=== PATIENT | female | born 1960 | race Caucasian/White ===

== ENCOUNTER 2020-09-12 17:16 | Inpatient (IN) | payer BC, SELFPAY ==
[2020-09-12 17:17] VITALS: BP 133/88; PULSE 106; RESP 16; TEMP 36.7; O2SAT 98; BMI 32.1
[2020-09-12 17:20] VITALS: BP 133/88; PULSE 106; RESP 16; TEMP 36.7; O2SAT 98
[2020-09-12 17:40] LABS: Absolute Lymphocyte Count 1.36 X10^3/uL (0.83-4.51); Absolute Neutrophil Count 10.6 X10^3/uL (2.0-7.7); Basophil# 0.05 X10^3/uL; Basophil% 0.4 % (0-1); Eosinophil# 0.25 X10^3/uL; Eosinophils% 1.9 % (0-5); Hematocrit 42.2 % (37-47); Hemoglobin 14.3 g/dL (12.0-15.0); Lymphocyte # 1.36 X10^3/ul (0.83-4.51); Lymphocyte % 10.2 % (19-41); Mean Corp Hgb Conc 33.9 g/dL (32-36); Mean Corpuscular Hgb 30.2 pg (27.0-32.0); Mean Platelet Vol. 10.7 fl (6.2-12.0); Monocyte# 0.97 X10^3/uL; Monocyte% 7.3 % (0-10); NRBC Flagged by Analyzer 0 % (0-5); Neutrophil # 10.64 X10^3/uL (2.7-7.7); Neutrophil % 79.6 % (47-70); Platelet Count 327 K/mm3 (150-450); RBC Distribution Width CV 12.2 % (11.6-14.6); RBC Distribution Width SD 40.3 fl (35.1-43.9); Red Blood Count 4.74 M/mm3 (4.2-5.4); White Blood Count 13.4 K/mm3 (4.4-11.0)
[2020-09-12 17:58] LABS: ALB/GLOB Ratio 0.7 RATIO (0.9-2.4); AST(SGOT) 23 U/L (15-37); Alanine Aminotransfer ALT/SGPT 30 U/L (13-56); Albumin, Serum 3.1 g/dL (3.2-5.0); Alkaline Phosphatase 97 U/L (45-117); Anion Gap 8 (5-15); BUN 7 mg/dL (7-18); Calcium,Total 8.8 mg/dL (8.5-10.1); Chloride 104 mmol/L (98-107); Creatinine, Serum 0.99 mg/dL (0.55-1.02); EST Glomerular Filtration Rate 61 mL/min (>60); Est Glom Filt Rate - Afr Amer 74 mL/min (>60); Estimated Creatinine Clearance 48.99 ml/min; Globulin 4.4 g/dL (2.2-4.2); Glucose 103 mg/dL (74-106); Protein, Total 7.5 g/dL (6.4-8.2); Sodium Level 139 mmol/L (136-145)
[2020-09-12 18:28] VITALS: BP 132/61; PULSE 100; RESP 16; TEMP 37.3; O2SAT 100
[2020-09-12 19:24] VITALS: BP 148/77; PULSE 99; RESP 18; TEMP 37.7; O2SAT 98
[2020-09-12] MEDS: Ondansetron 4 MG/2 ML Vial IV (19:53)
[2020-09-12] MEDS: Morphine 4 MG/ML Syringe IV ×2 (19:53→22:50)
--- NOTE | 2020-09-12 20:58 | ED.RN ---
pt called rn to room for numbness and tingling in chest starting about [address] torres aware. pt hands rigid. new finding since arrival. dr. torres also aware. respiratory called into room for ekg.
--- NOTE | 2020-09-12 21:03 | EKG12_ITS ---
Test Reason : CHEST DISCOMFORT Blood Pressure : / mmHG Vent. Rate : 103 BPM Atrial Rate : 103 BPM P-R Int : 146 ms QRS Dur : 088 ms QT Int : 356 ms P-R-T Axes : 053 014 044 degrees QTc Int : 466 ms Sinus tachycardia Nonspecific ST abnormality Abnormal ECG Confirmed by ZEINA HAQUE, KRISTEN ([id number]), technical writer and editor TARYN MICHAUD ([id number]) on 09/16/2020 2:01:02 PM Referred By: DANIEL Confirmed By:KRISTEN PASTRANA MD
--- NOTE | 2020-09-12 21:14 | CT_ITS ---
We are attempting to reach an attending provider to discuss findings. An addendum with communication details will be sent when the communication is complete. HISTORY: abdominal paiN TECHNIQUE: Helically acquired images were obtained of the abdomen and pelvis following the intravenous administration of 100 ML of Isovue-370 Iodinated contrast. 2D reformats. Oral contrast was administered. A radiation dose optimization technique was used for this scan. COMPARISON: Comparison CT scan of the abdomen and pelvis was recently as April 12, 2013 FINDINGS: # of images incl. paperwork: 418 LUNG BASES: Clear. CT abdomen: There is a gentle dextroscoliosis within the thoracolumbar spine. Some degenerative disc disease. Some facet arthropathy. Sclerosis at the pubic symphysis. The gallbladder has been resected. There is intra-and extrahepatic biliary ductal dilatation. . Within the periphery, in a subcapsular position, in the posterior segment of the right hepatic lobe there is a hypodense structure with well-defined margins measuring 6 mm in diameter, likely representing a benign cyst. The spleen, pancreas, and adrenal glands, are normal. The kidneys are normal. The aorta is normal. CT pelvis: No ascites is present. The appendix is not identified, and likely has been resected. The uterus is not identified, and likely has been resected. The bladder is contracted. Abnormal edema and swelling is present within the splenic flexure and descending colon. The degree of inflammation is much more severe within the sigmoid colon near its junction with the descending colon, and there is likely focal bowel perforation, series 2 image 77. No abscess. No perceived intraperitoneal free gas. Diverticulosis within the sigmoid colon. Additional inflammatory change in bowel wall thickening within the sigmoid colon. CT/Abdomen/Pelvis W IV Cont ONLY IMPRESSION: Colitis beginning within the splenic flexure and extending through the sigmoid colon. The colitis is most severe and most focal at the junction of the descending colon and the sigmoid colon. On series 2, the axial images, image 77, as well as coronal series 601 image 51 there does appear to be a defect in the enhancing mucosa suggestive of focal possible bowel perforation, at least through the mucosa, but perhaps not through the visceral peritoneal reflection. There is no free corresponding gas or abscess Individualized dose optimization techniques were used for this CT. at 2151 Reported and signed by: Wei Kern MD Electronically Signed: Wei Kern MD at 21:50 EDT Tel , Service support ,
[2020-09-12 21:16] LABS: Lipase 90 U/L (73-393)
[2020-09-12] MEDS: proMETHazine 25 MG/ML Syringe 12.5 MG IM (22:32)
--- NOTE | 2020-09-12 22:37 | CON.PCM.SX_ITS ---
Assessment & Plan Assessment/Plan (1) C. difficile colitis: PLAN: The patient has known C. difficile colitis which was confirmed with stool study last Tuesday. The patient has been on oral vancomycin for a week now. The patient presented today because her pain got worse and she is saying her pain is in the left lower quadrant and epigastric region. CT scan shows inflammation of the colon from the splenic flexure to the sigmoid colon with the worst of the inflammation at the descending sigmoid junction. There is also concern for the integrity of the mucosa of the sigmoid colon. The patient reports having C. difficile 4 years ago as well. At this point I would recommend admission to the hospitalist service on a closely monitored unit. The patient should have every 4 vitals and if she starts becoming hypotensive or having any guarding she may require surgery. At this time the patient is having left lower quadrant tenderness but the rest of her quadrants are only mildly tender. The left lower quadrant has no guarding or rebound tenderness. If the patient remains the same overnight and there is no improvement I would recommend repeating a CT in the morning as there was worsening of the inflammation from yesterday CT to today. I discussed laparotomy with sigmoid colectomy and possible colostomy with the patient and her . I informed the patient that C. difficile colitis may be severe in nature. I explained that surgery would carry a high morbidity mortality rate and likely colostomy. All the patient's questions were answered. At the current time the patient is only mildly tachycardic and has a low-grade fever of 99.9 with no hypotension. If the patient progresses to sepsis with hypotension and more severe tachycardia or develops peritoneal signs I would recommend taking the patient for colectomy. I have also recommended that ID may be consulted for guidance on antibiotic recommendations. Thomas Hassan MD Pager: [facility] [address] [place] [address], [address] [place] [address] Office: HPI Consult Data Date of Consult: 09/12/20 HPI Narrative HPI Narrative: BRETT MCINTYRE, is a 59 F who presents with abdominal pain. The patient has been treated for C. difficile for the past week with oral vancomycin. She reports that she developed lower abdominal pain and epigastric pain last Tuesday and went to see her doctor and a stool study showed C. difficile. The patient was started on oral vancomycin and reports that her pain got worse on Tuesday and went back to the doctor and she was ordered a CT scan. The CT scan was done yesterday and showed colitis. The patient was ordered Flagyl but never picked it up to the pharmacy and got worse today and she now reports she is having worse left lower quadrant pain and she is having epigastric pain. She also reports he is having a lot of diarrhea. No nausea or vomiting. She also says she is having tingling in her arms and legs. [facility] Medical History (Updated 09/12/20 @ 22:[address] Thomas Hassan MD) C. difficile colitis Cholecystectomy planned Diverticulitis Home Medications estradiol 1 patch TOPICAL QODAY 04/12/13 [History Last Taken Unknown] naproxen 500 mg PO BID PRN #20 tab 04/12/13 [Rx Last Taken Unknown] ondansetron 4 mg PO Q8H PRN PRN #10 tab 04/12/13 [Rx Last Taken Unknown] omeprazole 20 mg PO DAILY PRN 10/15/16 [History Last Taken Unknown] Allergy/AdvReac Type Severity Reaction Status Date / Time midazolam [From Versed] Allergy WENT Verified 09/12/20 17:19 COMPLETELY NUMB butorphanol tartrate AdvReac Abd Verified 09/12/20 17:19 [From Stadol] cramps/diarrhea codeine AdvReac Abd Verified 09/12/20 17:19 cramps/diarrhea Surgical History (Updated 09/12/20 @ 18:27 by Zulma Garcia) History of appendectomy History of hysterectomy Social History Smoking Status: Never smoker ROS Constitutional Constitutional: Reports fever(s); Denies anorexia, fatigue or headache(s) Eyes Eyes: Denies blurry vision ENT HEENT: Denies abnormal hearing Cardiovascular Cardiovascular: Denies chest pain Respiratory/Chest Respiratory/Chest: Denies cough or productive cough Gastrointestinal Gastrointestinal: Reports abdominal pain, diarrhea and nausea; Denies bloating, constipation, dysphagia, hematemesis or vomiting Genitourinary Genitourinary: Denies difficulty urinating Musculoskeletal Musculoskeletal: Denies abnormal gait Integumentary Integumentary: Denies jaundice Neurologic Neurologic: Denies abnormal gait Endocrine Endocrinology: Denies flushing Hematologic/Lymphatic Hematologic/Lymphatic: Denies easy bleeding Physical Exam Const alert and oriented x3 Eyes PERRL Neck full ROM Resp normal respiratory effort Cardio Rate: tachycardic Rhythm: regular rhythm GI non-distended Palpation: tender; Negative for guarding Lab / Micro Data Result Diagrams: 09/12/20 17:20 09/12/20 17:20 Labs: Laboratory Results - last 24 hr 09/12/20 09/12/20 09/12/20 17:20 17:20 17:20 WBC 13.4 H RBC 4.74 Hgb 14.3 Hct 42.2 MCV 89.0 MCH 30.2 MCHC 33.9 RDW Std Deviation 40.3 RDW Coeff of Angel 12.2 Plt Count 327 MPV 10.7 Immature Gran % (Auto) 0.600 Neut % (Auto) 79.6 H Lymph % (Auto) 10.2 L [place] % (Auto) 7.3 Eos % (Auto) 1.9 Baso % (Auto) 0.4 Absolute Neuts (auto) 10.6 H Absolute Lymphs (auto) 1.36 Nucleated RBC % 0 Sodium 139 Potassium 3.0 L Chloride 104 Carbon Dioxide 27.0 Anion Gap 8 BUN 7 Creatinine 0.99 Estim Creat Clear Calc 48.99 Est GFR (MDRD) Af Amer 74 Est GFR (MDRD) Non-Af 61 BUN/Creatinine Ratio 7.0 L Glucose 103 Calcium 8.8 Total Bilirubin 0.40 AST 23 ALT 30 Alkaline Phosphatase 97 Troponin I Total Protein 7.5 Albumin 3.1 L Globulin 4.4 H Albumin/Globulin Ratio 0.7 L Lipase 90 09/12/20 17:20 WBC RBC Hgb Hct MCV MCH MCHC RDW Std Deviation RDW Coeff of Angel Plt Count MPV Immature Gran % (Auto) Neut % (Auto) Lymph % (Auto) [place] % (Auto) Eos % (Auto) Baso % (Auto) Absolute Neuts (auto) Absolute Lymphs (auto) Nucleated RBC % Sodium Potassium Chloride Carbon Dioxide Anion Gap BUN Creatinine Estim Creat Clear Calc Est GFR (MDRD) Af Amer Est GFR (MDRD) Non-Af BUN/Creatinine Ratio Glucose Calcium Total Bilirubin AST ALT Alkaline Phosphatase Troponin I < 0.015 Total Protein Albumin Globulin Albumin/Globulin Ratio Lipase Radiology Impression Abdomen/Pelvis CT 09/12/20 21:14 IMPRESSION: Colitis beginning within the splenic flexure and extending through the sigmoid colon. The colitis is most severe and most focal at the junction of the descending colon and the sigmoid colon. On series 2, the axial images, image 77, as well as coronal series 601 image 51 there does appear to be a defect in the enhancing mucosa suggestive of focal possible bowel perforation, at least through the mucosa, but perhaps not through the visceral peritoneal reflection. There is no free corresponding gas or abscess Individualized dose optimization techniques were used for this CT. at 2151 Reported and signed by: Wei Kern MD Electronically Signed: Wei Kern MD at 21:50 EDT Tel , Service support , ADDENDUM: 09/12/202207 IMPRESSION: Colitis beginning within the splenic flexure and extending through the sigmoid colon. The colitis is most severe and most focal at the junction of the descending colon and the sigmoid colon. On series 2, the axial images, image 77, as well as coronal series 601 image 51 there does appear to be a defect in the enhancing mucosa suggestive of focal possible bowel perforation, at least through the mucosa, but perhaps not through the visceral peritoneal reflection. There is no free corresponding gas or abscess Individualized dose optimization techniques were used for this CT. at 2151 Reported and signed by: Wei Kern MD N.B. : The above information has been verbally conveyed by Wei Kern MD to Frank Brantley MD, on 09/12/2020 22:01:26 (ET). Electronically Signed: Wei Kern MD at 21:50 EDT Tel , Service support ,
--- NOTE | 2020-09-12 22:49 | EDS_ITS ---
HPI History of Present Illness Chief Complaint: Abd Pain Narrative Narrative: Patient presenting with abdominal pain. She states he was recently diagnosed with C. difficile colitis. She followed up with her GI doctor who had a CT with IV contrast performed of her abdomen and pelvis which showed diverticulitis. She was then's started on Flagyl. Patient states that today she has had significant increase in pain. She denies fever or chills. She has mild nausea. She denies urinary complaints. PFSH PFSH Medical History C. difficile colitis Cholecystectomy planned Diverticulitis Home Medications estradiol 1 patch TOPICAL QODAY 04/12/13 [History Last Taken Unknown] naproxen 500 mg PO BID PRN #20 tab 04/12/13 [Rx Last Taken Unknown] ondansetron 4 mg PO Q8H PRN PRN #10 tab 04/12/13 [Rx Last Taken Unknown] omeprazole 20 mg PO DAILY PRN 10/15/16 [History Last Taken Unknown] Allergy/AdvReac Type Severity Reaction Status Date / Time midazolam [From Versed] Allergy WENT Verified 09/12/20 17:19 COMPLETELY NUMB butorphanol tartrate AdvReac Abd Verified 09/12/20 17:19 [From Stadol] cramps/diarrhea codeine AdvReac Abd Verified 09/12/20 17:19 cramps/diarrhea Surgical History History of appendectomy History of hysterectomy Social History Smoking Status: Never smoker ROS [facility] ED Constitutional Constitutional ED: Denies chills, fever(s) or sweats Eyes Eyes: Denies blurry vision or change in vision ENT ENT ED: Denies ear pain, rhinorrhea or sore throat Cardiovascular Cardiovascular: Denies chest pain, palpitations or racing heartbeat Respiratory/Chest Respiratory/Chest: Denies cough, dyspnea or sputum Gastrointestinal Gastrointestinal: Reports abdominal pain and nausea; Denies constipation, diarrhea or vomiting Genitourinary Genitourinary ED: Denies dysuria, hematuria or urinary frequency Musculoskeletal Musculoskeletal: Denies arthralgias, myalgias or neck pain Integumentary Denies abscess, Abrasions or rash Neurologic Neurologic: Denies headache(s), paresthesias or weakness Psychiatric Psychiatric: Denies anxiety, depression, suicidal ideation or suicidal thoughts Endocrine Endocrinology: Denies polydipsia or polyuria EXAM Physical Exam Const Vital Signs: 09/12/20 17:17 09/12/20 17:20 09/12/20 18:28 Temperature 98.1 F 98.1 F 99.1 F Temperature Source Temporal Temporal Temporal Pulse Rate 106 H 106 H 100 Respiratory Rate 16 16 16 Blood Pressure 133/88 H 133/88 H 132/61 H Blood Pressure Mean 103 103 84 Pulse Ox 98 98 100 Oxygen Delivery Method Room Air Room Air Room Air 09/12/20 19:24 Temperature 99.9 F H Temperature Source Oral Pulse Rate 99 Respiratory Rate 18 Blood Pressure 148/77 H Blood Pressure Mean 100 Pulse Ox 98 Oxygen Delivery Method Room Air Positive obese General Appearance ED: NAD Nutritional Appearance: obese HEENT Negative for trauma or tenderness Eyes PERRL and EOMs intact bilaterally Resp normal respiratory effort and clear to auscultation bilaterally Cardio regular rate and regular rhythm GI non-distended Palpation: soft and tender LLQ Back/Spine no CVA tenderness Lumbar Spine / Lower Back: Negative for lumbar spinal tenderness Extremity normal to inspection General Extremety ED: Negative for edema or tenderness General Extremity: Negative for edema Neuro oriented x3 Sensorium / Orientation: alert Psych mental status grossly normal Skin no rashes or lesions noted, no wounds and skin turgor normal MDM MDM MDM Narrative Medical decision making narrative: Patient was seen and evaluated on arrival for abdominal pain which appeared to be mostly in the left lower quadrant. Patiently recently treated for C. difficile and diverticulitis. Patient had lab work drawn today which shows a leukocytosis of 13.4 with a slight left shift. Hemoglobin hematocrit stable. Platelets normal. Patient's renal function was normal however potassium was 3.0. LFTs are also normal. Lipase negative. After receiving morphine and Zofran patient felt improved. While I was discussing with her that she could probably go home with pain medication and nausea medication she began to have acute onset epigastric pain and started feeling like it was radiating up into her chest. I obtained an EKG that shows a normal sinus rhythm at 103 bpm with signs of ischemic changes as interpreted by myself. Her troponin was negative. I was more concerned with possible perforation so I obtained a CT of the abdomen pelvis with IV contrast which shows to be a defect in the enhancing mucosa there suggestive of focal possible bowel perforation, at least through the mucosa, but perhaps not through the visceral peritoneal reflection. There is no free corresponding gas or abscess. Patient was discussed with Dr. Hassan who individually examined the patient and felt that she was not peritoneal. He recommended admission. I discussed this with the hospitalist and patient was admitted to PCU stepdown. The plan is to obtain an ID consult for the best antibiotics to use given her current diagnosis. Patient will need her potassium repleted IV while inpatient as she is n.p.o. Impression: 1. C. difficile colitis 2. Intractable abdominal pain Lab Data Labs: Laboratory Results - last 24 hr 09/12/20 09/12/20 09/12/20 17:20 17:20 17:20 WBC 13.4 H RBC 4.74 Hgb 14.3 Hct 42.2 MCV 89.0 MCH 30.2 MCHC 33.9 RDW Std Deviation 40.3 RDW Coeff of Angel 12.2 Plt Count 327 MPV 10.7 Immature Gran % (Auto) 0.600 Neut % (Auto) 79.6 H Lymph % (Auto) 10.2 L [place] % (Auto) 7.3 Eos % (Auto) 1.9 Baso % (Auto) 0.4 Absolute Neuts (auto) 10.6 H Absolute Lymphs (auto) 1.36 Nucleated RBC % 0 Sodium 139 Potassium 3.0 L Chloride 104 Carbon Dioxide 27.0 Anion Gap 8 BUN 7 Creatinine 0.99 Estim Creat Clear Calc 48.99 Est GFR (MDRD) Af Amer 74 Est GFR (MDRD) Non-Af 61 BUN/Creatinine Ratio 7.0 L Glucose 103 Calcium 8.8 Total Bilirubin 0.40 AST 23 ALT 30 Alkaline Phosphatase 97 Troponin I Total Protein 7.5 Albumin 3.1 L Globulin 4.4 H Albumin/Globulin Ratio 0.7 L Lipase 90 09/12/20 17:20 WBC RBC Hgb Hct MCV MCH MCHC RDW Std Deviation RDW Coeff of Angel Plt Count MPV Immature Gran % (Auto) Neut % (Auto) Lymph % (Auto) [place] % (Auto) Eos % (Auto) Baso % (Auto) Absolute Neuts (auto) Absolute Lymphs (auto) Nucleated RBC % Sodium Potassium Chloride Carbon Dioxide Anion Gap BUN Creatinine Estim Creat Clear Calc Est GFR (MDRD) Af Amer Est GFR (MDRD) Non-Af BUN/Creatinine Ratio Glucose Calcium Total Bilirubin AST ALT Alkaline Phosphatase Troponin I < 0.015 Total Protein Albumin Globulin Albumin/Globulin Ratio Lipase Radiography Diagnostic Testing: Radiology Impression Abdomen/Pelvis CT 09/12/20 21:14 IMPRESSION: Colitis beginning within the splenic flexure and extending through the sigmoid colon. The colitis is most severe and most focal at the junction of the descending colon and the sigmoid colon. On series 2, the axial images, image 77, as well as coronal series 601 image 51 there does appear to be a defect in the enhancing mucosa suggestive of focal possible bowel perforation, at least through the mucosa, but perhaps not through the visceral peritoneal reflection. There is no free corresponding gas or abscess Individualized dose optimization techniques were used for this CT. at 2151 Reported and signed by: Wei Kern MD Electronically Signed: Wei Kern MD at 21:50 EDT Tel , Service support , ADDENDUM: 09/12/208 IMPRESSION: Colitis beginning within the splenic flexure and extending through the sigmoid colon. The colitis is most severe and most focal at the junction of the descending colon and the sigmoid colon. On series 2, the axial images, image 77, as well as coronal series 601 image 51 there does appear to be a defect in the enhancing mucosa suggestive of focal possible bowel perforation, at least through the mucosa, but perhaps not through the visceral peritoneal reflection. There is no free corresponding gas or abscess Individualized dose optimization techniques were used for this CT. at 2151 Reported and signed by: Wei Kern MD N.B. : The above information has been verbally conveyed by Wei Kern MD to Frank Brantley MD, on 09/12/2020 22:01:26 (ET). Electronically Signed: Wei Kern MD at 21:50 EDT Tel , Service support , Discharge Plan Triage Chief Complaint: Abd Pain ED Provider: Frank Brantley Dx/Rx/DC Orders Prescriptions: No Action estradiol 0.05 MG patch 1 patch topical QODAY RF: 0 ondansetron 4 MG tablet 4 mg PO Q8H PRN PRN (Reason: Nausea) Qty: 10 RF: 0 naproxen 500 MG tablet 500 mg PO BID PRN Qty: 20 RF: 0 omeprazole 20 MG capsule 20 mg PO DAILY PRN (Reason: Indigestion) RF: 0 Primary Care Provider: Romeo Robbins III
--- NOTE | 2020-09-12 22:59 | PCM.HP.STD ---
[facility] - General General Date of Admission: 09/12/20 Date of Service: 09/12/20 Chief Complaint: Abdominal pain. [facility] Narrative BRETT MCINTYRE, is a 59 F with no significant past medical history presented to the emergency room because of abdominal pain. Her illness started around 10 days ago with abdominal pain, initially was right lower quadrant and epigastric pain, dull aching pain, has been slowly progressing, associated with diarrhea as well as nausea and vomiting and without aggravating or relieving factors. 3 days after onset of her symptoms, she was seen by her PCP who ordered blood work and stool for C. difficile that came back positive. She was started on p.o. vancomycin 5 days ago. She continued to have this abdominal pain but started to shift to the left side of her abdomen, more severe pain, sharp pain, 10 out of 10 in severity, aggravated by movement and even coughing, continue to have persistent diarrhea, at least 10 times a day with watery stool as well as nausea and vomiting. She has been on p.o. vancomycin for the last 5 days but has no improvement of her symptoms. She had a CT scan abdomen that was done yesterday which was ordered by her PCP and she received a call from her PCPs office informing him that she will need to be on 2 antibiotics. Today, she feels more sick, continued to have abdominal pain with diarrhea and she decided to come to the emergency department. In the emergency department, she had a low-grade fever of 99.9 Fahrenheit, was tachycardic, blood pressure was stable, pulse ox was 98% on room air. Routine blood work was remarkable for leukocytosis and hypokalemia, otherwise normal. LFT was unremarkable. Lipase was normal. CT scan abdomen and pelvis with IV contrast revealed extensive acute colitis of the splenic flexure, descending colon and down to sigmoid colon, there was a defect in the enhancing mucosa suggestive of focal possible bowel perforation at least through the mucosa, no free air, no abscess formation. Patient is being admitted for acute severe colitis of the splenic flexure, descending colon and sigmoid colon due to C. difficile infection and also found to have sepsis and hypokalemia. [facility] Medical History (Updated 09/12/20 @ 23:[address] Casimiro Hess MD) C. difficile colitis Diverticulitis Home Medications estradiol 1 patch TOPICAL QODAY 04/12/13 [History Last Taken Unknown] naproxen 500 mg PO BID PRN #20 tab 04/12/13 [Rx Last Taken Unknown] ondansetron 4 mg PO Q8H PRN PRN #10 tab 04/12/13 [Rx Last Taken Unknown] omeprazole 20 mg PO DAILY PRN 10/15/16 [History Last Taken Unknown] Allergy/AdvReac Type Severity Reaction Status Date / Time midazolam [From Versed] Allergy WENT Verified 09/12/20 17:19 COMPLETELY NUMB butorphanol tartrate AdvReac Abd Verified 09/12/20 17:19 [From Stadol] cramps/diarrhea codeine AdvReac Abd Verified 09/12/20 17:19 cramps/diarrhea no significant family history Surgical History (Updated 09/12/20 @ 23:[address] Casimiro Hess MD) History of appendectomy History of cholecystectomy History of hysterectomy Social History (Updated 09/12/20 @ 23:[address] Casimiro Hess MD) Smoking Status: Never smoker alcohol intake: never ROS Constitutional Constitutional: Reports anorexia, chills, malaise and weakness; Denies fatigue or fever(s) Eyes Eyes: Denies blurry vision, change in eye color, change in vision, double vision or eye pain ENT HEENT: Denies ear pain, epistaxis, headache(s), nasal congestion, post nasal drip or sore throat Cardiovascular Cardiovascular: Denies chest pain, dyspnea on exertion, edema, lightheadedness, orthopnea, palpitations, paroxysmal nocturnal dyspnea or syncope Respiratory/Chest Respiratory/Chest: Denies cough, dyspnea, hemoptysis, productive cough, shortness of breath at rest, shortness of breath with exertion or wheezing Gastrointestinal Gastrointestinal: Reports abdominal pain, diarrhea, nausea and vomiting; Denies constipation, hematochezia or melena Genitourinary Genitourinary: Denies burning urination, dysuria, hematuria, urinary hesitancy or urinary urgency Musculoskeletal Musculoskeletal: Denies arthralgias, back pain, joint pain, joint swelling, myalgias or neck pain Neurologic Neurologic: Denies confusion, dizziness, focal weakness, headache(s), numbness, paresthesias, seizures, tingling or tremor(s) Psychiatric Psychiatric: Denies anxiety, depression, hallucinations, homicidal ideation or suicidal ideation Endocrine Endocrinology: Denies change in body appearance, cold intolerance, heat intolerance, polydipsia or polyuria Hematologic/Lymphatic Hematologic/Lymphatic: Denies easy bleeding, easy bruising or lymphadenopathy Allergic/Immunologic Allergic/Immunologic: Denies itchy eyes, rhinitis, throat swelling, tongue swelling, hives, urticaria or wheezing Vital Signs Vital Signs Vital Signs: 09/12/20 17:17 09/12/20 17:20 09/12/20 18:28 Temperature 98.1 F 98.1 F 99.1 F Temperature Source Temporal Temporal Temporal Pulse Rate 106 H 106 H 100 Respiratory Rate 16 16 16 Blood Pressure 133/88 H 133/88 H 132/61 H Blood Pressure Mean 103 103 84 Pulse Ox 98 98 100 Oxygen Delivery Method Room Air Room Air Room Air 09/12/20 19:24 Temperature 99.9 F H Temperature Source Oral Pulse Rate 99 Respiratory Rate 18 Blood Pressure 148/77 H Blood Pressure Mean 100 Pulse Ox 98 Oxygen Delivery Method Room Air Weight Weight: 176 lb Body Mass Index (BMI) 32.1 Physical Exam Const alert, oriented x3 and no limitations Constitutional Narrative: She is in moderate to severe pain. General Appearance: cooperative, comfortable and well kempt HEENT normocephalic and head/scalp atraumatic HEENT Narrative: Dry mucous membranes, dry mouth. Head and Scalp: normocephalic and atraumatic Eyes PERRL, EOMs intact bilaterally, conjunctivae normal and no scleral icterus General Eye: normal appearance of both eyes Periorbital: periorbital findings normal Neck no lymphadenopathy, supple, no meningeal signs, no JVD and no carotid bruits General: trachea midline Thyroid: thyroid normal Resp normal respiratory effort, normal air movement and clear to auscultation bilaterally Auscultation: Negative for crackles, rales, rhonchi or wheezes Cardio regular rate, regular rhythm, S1 normal heart sound, S2 normal heart sound, no murmurs and no JVD Cardio Narrative: Tachycardia. Peripheral Pulses: pulses 2+ throughout GI Negative for hepatosplenomegaly GI Narrative: Tender, guarding to the left lower quadrant, mildly distended. Auscultation: normoactive bowel sounds Palpation: tender and guarding Extremity normal to inspection, full ROM and no clubbing, cyanosis or edema Peripheral Pulses: Yes pulses 2+ throughout Skin no rashes or lesions noted, no wounds and no petechiae Neuro oriented x3, CN's II-XII intact bilaterally and moves all extremities Sensorium / Orientation: alert Speech: speech normal Motor Exam: strength 5/5 throughout Psych mental status grossly normal, affect normal and denies hallucinations Lab / Micro Data Result Diagrams: 09/12/20 17:20 09/12/20 17:20 Labs: Laboratory Results - last 24 hr 09/12/20 09/12/20 09/12/20 17:20 17:20 17:20 WBC 13.4 H RBC 4.74 Hgb 14.3 Hct 42.2 MCV 89.0 MCH 30.2 MCHC 33.9 RDW Std Deviation 40.3 RDW Coeff of Angel 12.2 Plt Count 327 MPV 10.7 Immature Gran % (Auto) 0.600 Neut % (Auto) 79.6 H Lymph % (Auto) 10.2 L [place] % (Auto) 7.3 Eos % (Auto) 1.9 Baso % (Auto) 0.4 Absolute Neuts (auto) 10.6 H Absolute Lymphs (auto) 1.36 Nucleated RBC % 0 Sodium 139 Potassium 3.0 L Chloride 104 Carbon Dioxide 27.0 Anion Gap 8 BUN 7 Creatinine 0.99 Estim Creat Clear Calc 48.99 Est GFR (MDRD) Af Amer 74 Est GFR (MDRD) Non-Af 61 BUN/Creatinine Ratio 7.0 L Glucose 103 Calcium 8.8 Total Bilirubin 0.40 AST 23 ALT 30 Alkaline Phosphatase 97 Troponin I Total Protein 7.5 Albumin 3.1 L Globulin 4.4 H Albumin/Globulin Ratio 0.7 L Lipase 90 09/12/20 17:20 WBC RBC Hgb Hct MCV MCH MCHC RDW Std Deviation RDW Coeff of Angel Plt Count MPV Immature Gran % (Auto) Neut % (Auto) Lymph % (Auto) [place] % (Auto) Eos % (Auto) Baso % (Auto) Absolute Neuts (auto) Absolute Lymphs (auto) Nucleated RBC % Sodium Potassium Chloride Carbon Dioxide Anion Gap BUN Creatinine Estim Creat Clear Calc Est GFR (MDRD) Af Amer Est GFR (MDRD) Non-Af BUN/Creatinine Ratio Glucose Calcium Total Bilirubin AST ALT Alkaline Phosphatase Troponin I < 0.015 Total Protein Albumin Globulin Albumin/Globulin Ratio Lipase Radiology Impression Abdomen/Pelvis CT 09/12/20 21:14 IMPRESSION: Colitis beginning within the splenic flexure and extending through the sigmoid colon. The colitis is most severe and most focal at the junction of the descending colon and the sigmoid colon. On series 2, the axial images, image 77, as well as coronal series 601 image 51 there does appear to be a defect in the enhancing mucosa suggestive of focal possible bowel perforation, at least through the mucosa, but perhaps not through the visceral peritoneal reflection. There is no free corresponding gas or abscess Individualized dose optimization techniques were used for this CT. at 2151 Reported and signed by: Wei Kern MD Electronically Signed: Wei Kern MD at 21:50 EDT Tel , Service support , ADDENDUM: 09/12/202207 IMPRESSION: Colitis beginning within the splenic flexure and extending through the sigmoid colon. The colitis is most severe and most focal at the junction of the descending colon and the sigmoid colon. On series 2, the axial images, image 77, as well as coronal series 601 image 51 there does appear to be a defect in the enhancing mucosa suggestive of focal possible bowel perforation, at least through the mucosa, but perhaps not through the visceral peritoneal reflection. There is no free corresponding gas or abscess Individualized dose optimization techniques were used for this CT. at 2151 Reported and signed by: Wei Kern MD N.B. : The above information has been verbally conveyed by Wei Kern MD to Frank Brantley MD, on 09/12/2020 22:01:26 (ET). Electronically Signed: Wei Kern MD at 21:50 EDT Tel , Service support , Assessment & Plan Assessment/Plan (1) Hypokalemia: (2) Sepsis: (3) C. difficile colitis: PLAN: This is a 59 years old female patient presented to the emergency room because of 10 days history of abdominal pain, nausea, vomiting, persistent diarrhea, was diagnosed with C. difficile colitis around 1 week ago, has been on p.o. vancomycin for 5 days without improvement, found to have acute severe colitis of the splenic flexure, descending colon and sigmoid colon due to C. difficile with sepsis. #1 acute severe colitis involving splenic flexure/descending/sigmoid colon/probable perforation/sepsis: Due to C. difficile infection. CT scan abdomen and pelvis reviewed as above. Patient is having low-grade fever, tachycardic, blood pressure stable. She does have guarding on the abdominal exam, no acute abdomen. Plan: Admit to PCU stepdown, n.p.o., IV fluids, IV morphine as needed, IV Zofran as needed, IV Protonix twice daily, blood culture, urinalysis, urine culture, start IV Zosyn, p.o. vancomycin, general surgery consult, repeat CBC and CMP tomorrow morning. #2 hypokalemia: Due to excessive diarrhea. Plan to replace potassium with IV potassium chloride, repeat BMP tomorrow morning. #3 DVT prophylaxis: Subcu Lovenox. This note was generated with [employer] dictation software. It may contain incorrect words, spelling, and punctuation that were not noted in checking the note before signing. Visit Charges Inpatient E&M: 08300 Init Hosp L3
[2020-09-12 23:00] VITALS: BP 126/80; PULSE 97; RESP 16; TEMP 36.7; O2SAT 97
[2020-09-12 23:10] VITALS: O2SAT 96
[2020-09-13] VITALS (15 sets, daily range): BP systolic 113–136; BP diastolic 63–75; PULSE 71–94; RESP 13–18; TEMP 36.1–37.4; O2SAT 95–100; BMI 31.8
[2020-09-13 00:30] LABS: Lactic Acid 1.1 mmol/L (0.4-1.9)
[2020-09-13] MEDS: 0.9% Normal Saline 1,000 ML 125 ML IV ×3 (00:48→17:13)
[2020-09-13] MEDS: Potassium Chloride 10mEq/100mL 10 MEQ/100 ML IV.SOLN. 100 MEQ IV BOLUS ×4 (00:52→03:50)
[2020-09-13] MEDS: proMETHazine 25 MG/ML Syringe 6.25 MG IM ×4 (01:12→23:29)
[2020-09-13] MEDS: Morphine 2 MG/ML Syringe IV ×4 (01:47→23:23)
[2020-09-13] MEDS: Ondansetron 4 MG/2 ML Vial IV (05:32)
[2020-09-13] MEDS: 0.9% Saline Lock 10 ML Syringe IV ×2 (05:33→14:34)
[2020-09-13 05:41] LABS: Mucous, Urine 0 SEEN /hpf (<or=2+); Squamous Epithelial Cells - UA 0 SEEN /hpf (5-10); White Blood Cells 0 SEEN /hpf (0-5)
[2020-09-13 05:51] LABS: Color, Urine Yellow (Yellow); Glucose, Dipstick Normal (Normal); Leukocyte Esterase-Dipstick Negative /ul (Negative); Nitrite-Dipstick Positive (Negative); Occult Blood-Urine 25 /ul (Negative); Protein-Dipstick 15 mg/dl (Negative); Urine Bilirubin Dipstick Negative (Negative); Urine Clarity Clear (Clear); Urine Urobilinogen Normal (Normal); Urine pH 6.5 (5.0 - 8.0)
[2020-09-13 06:06] LABS: Ketone-Dipstick 150 mg/dl (Negative)
[2020-09-13 06:08] LABS: Bacteria 2+ /hpf (None Seen); Red Blood Cells-Urine 0-5 SEEN /hpf (0-5)
--- NOTE | 2020-09-13 07:28 | PCM.PN.SRG ---
Subjective Subjective The patient reports the pain medication is helping. She is not having any vomiting but still feels nauseous. Her vitals were stable through the night. Objective Data Objective Data Vital Signs: Vital Signs Temp Pulse Resp BP Pulse Ox 98.8 F 81 14 127/74 H 95 09/13/20 06:00 09/13/20 06:00 09/13/20 06:00 09/13/20 06:00 09/13/20 06:00 Oxygen Flow Rate (L/min) 4 Oxygen Delivery Method Room Air Weight: 174 lb 2.643 oz Body Mass Index (BMI) 31.8 Intake & Output: Intake and Output for Last 24 Hours 09/11/20 09/12/20 09/13/20 23:59 23:59 23:59 Intake Total 441.67 / 441.67 Output Total 500 / 500 Balance -58.33 / -58.33 Lab / Micro Data Result Diagrams: 09/12/20 17:20 09/12/20 17:20 Labs: Laboratory Results - last 24 hr 09/12/20 09/12/20 09/12/20 17:20 17:20 17:20 WBC 13.4 H RBC 4.74 Hgb 14.3 Hct 42.2 MCV 89.0 MCH 30.2 MCHC 33.9 RDW Std Deviation 40.3 RDW Coeff of Angel 12.2 Plt Count 327 MPV 10.7 Immature Gran % (Auto) 0.600 Neut % (Auto) 79.6 H Lymph % (Auto) 10.2 L [place] % (Auto) 7.3 Eos % (Auto) 1.9 Baso % (Auto) 0.4 Absolute Neuts (auto) 10.6 H Absolute Lymphs (auto) 1.36 Nucleated RBC % 0 Sodium 139 Potassium 3.0 L Chloride 104 Carbon Dioxide 27.0 Anion Gap 8 BUN 7 Creatinine 0.99 Estim Creat Clear Calc 48.99 Est GFR (MDRD) Af Amer 74 Est GFR (MDRD) Non-Af 61 BUN/Creatinine Ratio 7.0 L Glucose 103 Lactic Acid Calcium 8.8 Total Bilirubin 0.40 AST 23 ALT 30 Alkaline Phosphatase 97 Troponin I Total Protein 7.5 Albumin 3.1 L Globulin 4.4 H Albumin/Globulin Ratio 0.7 L Lipase 90 Urine Color Urine Clarity Urine pH Ur Specific [place] Urine Protein Urine Glucose (UA) Urine Ketones Urine Occult Blood Urine Nitrite Urine Bilirubin Urine Urobilinogen Ur Leukocyte Esterase Urine RBC Urine WBC Ur Squamous Epith Cells Urine Bacteria Urine Mucus 09/12/20 09/12/20 09/13/20 17:20 23:45 05:24 WBC RBC Hgb Hct MCV MCH MCHC RDW Std Deviation RDW Coeff of Angel Plt Count MPV Immature Gran % (Auto) Neut % (Auto) Lymph % (Auto) [place] % (Auto) Eos % (Auto) Baso % (Auto) Absolute Neuts (auto) Absolute Lymphs (auto) Nucleated RBC % Sodium Potassium Chloride Carbon Dioxide Anion Gap BUN Creatinine Estim Creat Clear Calc Est GFR (MDRD) Af Amer Est GFR (MDRD) Non-Af BUN/Creatinine Ratio Glucose Lactic Acid 1.1 Calcium Total Bilirubin AST ALT Alkaline Phosphatase Troponin I < 0.015 Total Protein Albumin Globulin Albumin/Globulin Ratio Lipase Urine Color Yellow Urine Clarity Clear Urine pH 6.5 Ur Specific [place] 1.010 Urine Protein 15 H Urine Glucose (UA) Normal Urine Ketones 150 A* Urine Occult Blood 25 H Urine Nitrite Positive H Urine Bilirubin Negative Urine Urobilinogen Normal Ur Leukocyte Esterase Negative Urine RBC 0-5 SEEN Urine WBC 0 SEEN Ur Squamous Epith Cells 0 SEEN Urine Bacteria 2+ Urine Mucus 0 SEEN Micro: Microbiology 09/12/20 23:50 Mucosa - Nasopharyngeal SARS-CoV-2 Antigen (Rapid) - Final Radiography Diagnostic Testing: Radiology Impression Abdomen/Pelvis CT 09/12/20 21:14 IMPRESSION: Colitis beginning within the splenic flexure and extending through the sigmoid colon. The colitis is most severe and most focal at the junction of the descending colon and the sigmoid colon. On series 2, the axial images, image 77, as well as coronal series 601 image 51 there does appear to be a defect in the enhancing mucosa suggestive of focal possible bowel perforation, at least through the mucosa, but perhaps not through the visceral peritoneal reflection. There is no free corresponding gas or abscess Individualized dose optimization techniques were used for this CT. at 2151 Reported and signed by: Wei Kern MD Electronically Signed: Wei Kern MD at 21:50 EDT Tel , Service support , ADDENDUM: 09/12/202207 IMPRESSION: Colitis beginning within the splenic flexure and extending through the sigmoid colon. The colitis is most severe and most focal at the junction of the descending colon and the sigmoid colon. On series 2, the axial images, image 77, as well as coronal series 601 image 51 there does appear to be a defect in the enhancing mucosa suggestive of focal possible bowel perforation, at least through the mucosa, but perhaps not through the visceral peritoneal reflection. There is no free corresponding gas or abscess Individualized dose optimization techniques were used for this CT. at 2151 Reported and signed by: Wei Kern MD N.B. : The above information has been verbally conveyed by Wei Kern MD to Frank Brantley MD, on 09/12/2020 22:01:26 (ET). Electronically Signed: Wei Kern MD at 21:50 EDT Tel , Service support , Physical Exam Const oriented x3 Resp normal respiratory effort Cardio regular rate and regular rhythm GI GI Narrative: Patient's left lower quadrant is tender but there is no guarding. The other quadrants are only mildly tender. Assessment & Plan Assessment/Plan (1) C. difficile colitis: PLAN: The patient has C. difficile colitis. She reports that overnight her pain was controlled with medication as well as her nausea. She says there is no worsening of the pain. Her vital signs are stable and there are no signs of septic shock. At this time I recommend continuing antibiotics and n.p.o. and observing for improvement. If anything worsens or her vital signs deteriorated I would recommend laparotomy for sigmoid colectomy. If things do not change or only mildly improve I would recommend repeating CT scan in the morning to check for any abscess formation or signs of perforation. Thomas Hassan MD Pager: [facility] [address] [place] [address], [address] [place] [phone] Office:
[2020-09-13 08:05] LABS: Absolute Lymphocyte Count 1.39 X10^3/uL (0.83-4.51); Absolute Neutrophil Count 10.7 X10^3/uL (2.0-7.7); Basophil# 0.04 X10^3/uL; Basophil% 0.3 % (0-1); Eosinophil# 0.08 X10^3/uL; Eosinophils% 0.6 % (0-5); Hematocrit 38.3 % (37-47); Hemoglobin 12.6 g/dL (12.0-15.0); Lymphocyte # 1.39 X10^3/ul (0.83-4.51); Lymphocyte % 10.6 % (19-41); Mean Corp Hgb Conc 32.9 g/dL (32-36); Mean Corpuscular Hgb 30.1 pg (27.0-32.0); Mean Corpuscular Volume 91.4 fL (81-99); Mean Platelet Vol. 10.7 fl (6.2-12.0); Monocyte# 0.79 X10^3/uL; NRBC Flagged by Analyzer 0 % (0-5); Neutrophil # 10.69 X10^3/uL (2.7-7.7); Neutrophil % 81.7 % (47-70); Platelet Count 285 K/mm3 (150-450); RBC Distribution Width CV 12.2 % (11.6-14.6); RBC Distribution Width SD 40.9 fl (35.1-43.9); Red Blood Count 4.19 M/mm3 (4.2-5.4); White Blood Count 13.1 K/mm3 (4.4-11.0)
[2020-09-13 08:27] LABS: ALB/GLOB Ratio 0.6 RATIO (0.9-2.4); AST(SGOT) 20 U/L (15-37); Alanine Aminotransfer ALT/SGPT 27 U/L (13-56); Albumin, Serum 2.5 g/dL (3.2-5.0); Alkaline Phosphatase 90 U/L (45-117); Anion Gap 6 (5-15); BUN 6 mg/dL (7-18); BUN/Creat Ratio 7.7 RATIO (10-20); Calcium,Total 7.7 mg/dL (8.5-10.1); Chloride 109 mmol/L (98-107); Creatinine, Serum 0.78 mg/dL (0.55-1.02); EST Glomerular Filtration Rate 80 mL/min (>60); Est Glom Filt Rate - Afr Amer 97 mL/min (>60); Estimated Creatinine Clearance 62.18 ml/min; Globulin 3.9 g/dL (2.2-4.2); Glucose 106 mg/dL (74-106); Potassium 3.3 mmol/L (3.5-5.1); Protein, Total 6.4 g/dL (6.4-8.2); Sodium Level 142 mmol/L (136-145)
--- NOTE | 2020-09-13 10:00 | CASEMGMT ---
KYE MARS Assessment: RN MADISYN in to pt room for initial transition planning/care coordination assessment. RN MADISYN introduced self and role at [facility], pt voices understanding and consents to assessment. Pt lying in bed in no distress. Care providers, pharmacy, and demographics verified/updated. Admitting Dx:abd pain PCP: Haydee Robbins- Pt states he recently retired and she has not decided on new PCP. Will stay within the practice. Specialists: Pt denies having any specialists. [facility] Insurance: [place] Prescription Benefit: yes LW/HPOA: Pt denies having a LW/DPOA. LNOK: Massimo Wallace, Living Arrangements: Pt lives in a single story house with a couple of steps to enter with . Pt states she is I in ADL's and denies concerns at home. Transportation: Pt drives self and denies issues with transportation. DME/HHC/SNF: Pt denies having any DME, previous HHC or SNF stays. Pt states no further concerns/needs. CM to follow. Advised pt to contact CM if any further question/concerns/needs arise, voices understanding. Pt Goal: Home Plan: Home with family support.
--- NOTE | 2020-09-13 16:38 | PN.HOSP_ITS ---
Subjective Subjective Patient has been reviews refusing her oral vancomycin today. She states she thought she was on IV antibiotics to address this and did not want to take anything orally because it she thought it would make her worse. I discussed with her the importance of the oral vancomycin and that this is actually treating her C. difficile infection. She reports to me that she has failed vancomycin therapy in the past when she had C. difficile approximately 5 years ago. She continues to feel poorly. Objective Data Objective Data Vital Signs: Vital Signs Temp Pulse Resp BP Pulse Ox 97.0 F L 71 15 133/73 H 97 09/13/20 13:57 09/13/20 15:00 09/13/20 13:57 09/13/20 13:57 09/13/20 13:57 Oxygen Flow Rate (L/min) 4 Oxygen Delivery Method Room Air Weight: 79 kg Body Mass Index (BMI) 31.8 Intake & Output: Intake and Output for Last 24 Hours 09/11/20 09/12/20 09/13/20 23:59 23:59 23:59 Intake Total 1606.67 / 1606.67 Output Total 700 / 700 Balance 906.67 / 906.67 Lab / Micro Data Result Diagrams: 09/13/20 07:30 09/13/20 07:30 Labs: Laboratory Results - last 24 hr 09/12/20 09/12/20 09/12/20 17:20 17:20 17:20 WBC 13.4 H RBC 4.74 Hgb 14.3 Hct 42.2 MCV 89.0 MCH 30.2 MCHC 33.9 RDW Std Deviation 40.3 RDW Coeff of Angel 12.2 Plt Count 327 MPV 10.7 Immature Gran % (Auto) 0.600 Neut % (Auto) 79.6 H Lymph % (Auto) 10.2 L [place] % (Auto) 7.3 Eos % (Auto) 1.9 Baso % (Auto) 0.4 Absolute Neuts (auto) 10.6 H Absolute Lymphs (auto) 1.36 Nucleated RBC % 0 Sodium 139 Potassium 3.0 L Chloride 104 Carbon Dioxide 27.0 Anion Gap 8 BUN 7 Creatinine 0.99 Estim Creat Clear Calc 48.99 Est GFR (MDRD) Af Amer 74 Est GFR (MDRD) Non-Af 61 BUN/Creatinine Ratio 7.0 L Glucose 103 Lactic Acid Calcium 8.8 Total Bilirubin 0.40 AST 23 ALT 30 Alkaline Phosphatase 97 Troponin I Total Protein 7.5 Albumin 3.1 L Globulin 4.4 H Albumin/Globulin Ratio 0.7 L Lipase 90 Urine Color Urine Clarity Urine pH Ur Specific [place] Urine Protein Urine Glucose (UA) Urine Ketones Urine Occult Blood Urine Nitrite Urine Bilirubin Urine Urobilinogen Ur Leukocyte Esterase Urine RBC Urine WBC Ur Squamous Epith Cells Urine Bacteria Urine Mucus 09/12/20 09/12/20 09/13/20 17:20 23:45 05:24 WBC RBC Hgb Hct MCV MCH MCHC RDW Std Deviation RDW Coeff of Angel Plt Count MPV Immature Gran % (Auto) Neut % (Auto) Lymph % (Auto) [place] % (Auto) Eos % (Auto) Baso % (Auto) Absolute Neuts (auto) Absolute Lymphs (auto) Nucleated RBC % Sodium Potassium Chloride Carbon Dioxide Anion Gap BUN Creatinine Estim Creat Clear Calc Est GFR (MDRD) Af Amer Est GFR (MDRD) Non-Af BUN/Creatinine Ratio Glucose Lactic Acid 1.1 Calcium Total Bilirubin AST ALT Alkaline Phosphatase Troponin I < 0.015 Total Protein Albumin Globulin Albumin/Globulin Ratio Lipase Urine Color Yellow Urine Clarity Clear Urine pH 6.5 Ur Specific [place] 1.010 Urine Protein 15 H Urine Glucose (UA) Normal Urine Ketones 150 A* Urine Occult Blood 25 H Urine Nitrite Positive H Urine Bilirubin Negative Urine Urobilinogen Normal Ur Leukocyte Esterase Negative Urine RBC 0-5 SEEN Urine WBC 0 SEEN Ur Squamous Epith Cells 0 SEEN Urine Bacteria 2+ Urine Mucus 0 SEEN 09/13/20 09/13/20 07:30 07:30 WBC 13.1 H RBC 4.19 L Hgb 12.6 Hct 38.3 MCV 91.4 MCH 30.1 MCHC 32.9 RDW Std Deviation 40.9 RDW Coeff of Angel 12.2 Plt Count 285 MPV 10.7 Immature Gran % (Auto) 0.800 Neut % (Auto) 81.7 H Lymph % (Auto) 10.6 L [place] % (Auto) 6.0 Eos % (Auto) 0.6 Baso % (Auto) 0.3 Absolute Neuts (auto) 10.7 H Absolute Lymphs (auto) 1.39 Nucleated RBC % 0 Sodium 142 Potassium 3.3 L Chloride 109 H Carbon Dioxide 27.0 Anion Gap 6 BUN 6 L Creatinine 0.78 Estim Creat Clear Calc 62.18 Est GFR (MDRD) Af Amer 97 Est GFR (MDRD) Non-Af 80 BUN/Creatinine Ratio 7.7 L Glucose 106 Lactic Acid Calcium 7.7 L Total Bilirubin 0.40 AST 20 ALT 27 Alkaline Phosphatase 90 Troponin I Total Protein 6.4 Albumin 2.5 L Globulin 3.9 Albumin/Globulin Ratio 0.6 L Lipase Urine Color Urine Clarity Urine pH Ur Specific [place] Urine Protein Urine Glucose (UA) Urine Ketones Urine Occult Blood Urine Nitrite Urine Bilirubin Urine Urobilinogen Ur Leukocyte Esterase Urine RBC Urine WBC Ur Squamous Epith Cells Urine Bacteria Urine Mucus Micro: Microbiology 09/12/20 23:50 Mucosa - Nasopharyngeal SARS-CoV-2 Antigen (Rapid) - Final Radiography Diagnostic Testing: Radiology Impression Abdomen/Pelvis CT 09/12/20 21:14 IMPRESSION: Colitis beginning within the splenic flexure and extending through the sigmoid colon. The colitis is most severe and most focal at the junction of the descending colon and the sigmoid colon. On series 2, the axial images, image 77, as well as coronal series 601 image 51 there does appear to be a defect in the enhancing mucosa suggestive of focal possible bowel perforation, at least through the mucosa, but perhaps not through the visceral peritoneal reflection. There is no free corresponding gas or abscess Individualized dose optimization techniques were used for this CT. at 2151 Reported and signed by: Wei Kern MD Electronically Signed: Wei Kern MD at 21:50 EDT Tel , Service support , ADDENDUM: 09/12/201 IMPRESSION: Colitis beginning within the splenic flexure and extending through the sigmoid colon. The colitis is most severe and most focal at the junction of the descending colon and the sigmoid colon. On series 2, the axial images, image 77, as well as coronal series 601 image 51 there does appear to be a defect in the enhancing mucosa suggestive of focal possible bowel perforation, at least through the mucosa, but perhaps not through the visceral peritoneal reflection. There is no free corresponding gas or abscess Individualized dose optimization techniques were used for this CT. at 2151 Reported and signed by: Wei Kern MD N.B. : The above information has been verbally conveyed by Wei Kern MD to Frank Brantley MD, on 09/12/2020 22:01:26 (ET). Electronically Signed: Wei Kern MD at 21:50 EDT Tel , Service support , Physical Exam Const alert, oriented x3 and no apparent distress Constitutional Narrative: Overweight, middle-aged, white female, lying in bed, appears as if she does not feel well but nontoxic Exam Limitations: no limitations HEENT head/scalp atraumatic HEENT Narrative: Mallampati 3, no thrush Head and Scalp: normocephalic Mouth: dry mucous membranes Eyes PERRL and EOMs intact bilaterally Neck supple Neck Narrative: Trachea midline Resp normal respiratory effort, no retractions, no use of accessory muscles and clear to auscultation bilaterally Auscultation: Negative for crackles, rales, rhonchi or wheezes Cardio regular rate, regular rhythm, S1 normal heart sound, S2 normal heart sound, no murmurs, no rub, no gallops, no clicks and no JVD GI soft to palpation GI Narrative: Hyperactive bowel sounds, mild diffuse tenderness, no significant rebound tenderness, minimal guarding, no distention Auscultation: hyperactive bowel sounds Palpation: tender; Negative for hernia Extremity normal to inspection, full ROM and no clubbing, cyanosis or edema Peripheral Pulses: Yes pulses 2+ throughout Neuro oriented x3, CN's II-XII intact bilaterally and moves all extremities Sensorium / Orientation: awake, alert, oriented to person, oriented to place and oriented to time Speech: speech normal Psych affect normal Assessment & Plan Assessment/Plan (1) C. difficile colitis: (2) Sepsis: PLAN: Acute severe colitis secondary to C. difficile infection -CT scan shows involvement of the splenic flexure/descending/sigmoid: -Doubt perforation given clinical picture at this time (no signs of shock, stable pain, stable vitals) -General surgery is following closely and repeat CT scan has been ordered for tomorrow morning -Patient had been refusing oral vancomycin--> I discussed the reason for the oral vancomycin and she was agreeable to try this -Continue IV Zosyn given severity of colitis and concern for possible pending perforation -Continue antiemetics -Continue Tylenol -Continue pain medication -Continue IV fluids -Patient states she has a history of C. difficile infection approximately 5 years ago that was refractory to oral vancomycin and she required IV Flagyl at that time--> if she does not improve on oral Flagyl I would start Dificid -Continue n.p.o. except for medications -Leukocytosis is stable Hypokalemia -Improved but remains low -Replace -Repeat in a.m. GERD -Continue PPI DVT prophylaxis -Continue Lovenox Visit Charges Inpatient E&M: 12205 Subs Hosp L2
--- NOTE | 2020-09-13 17:08 | NURSING ---
RN informed patient and her that Dr. Hassan was okay with patient receiving Lovenox. Educated patient and her on the purpose of injections for prevention of blood clots. Patient refused Lovenox injections and states I don't think I need them. RN informed patient to alert nursing if she should change her mind. Patient voices understanding of same.
[2020-09-14] VITALS (9 sets, daily range): BP systolic 112–135; BP diastolic 62–76; PULSE 65–99; RESP 15–18; TEMP 36.3–37.1; O2SAT 96–100
[2020-09-14] MEDS: 0.9% Normal Saline 1,000 ML 125 ML IV ×2 (01:14→11:26)
[2020-09-14 06:03] LABS: Absolute Lymphocyte Count 1.72 X10^3/uL (0.83-4.51); Absolute Neutrophil Count 6.5 X10^3/uL (2.0-7.7); Basophil# 0.06 X10^3/uL; Basophil% 0.6 % (0-1); Eosinophils% 4.3 % (0-5); Hematocrit 38.3 % (37-47); Hemoglobin 12.5 g/dL (12.0-15.0); Lymphocyte # 1.72 X10^3/ul (0.83-4.51); Lymphocyte % 18.6 % (19-41); Mean Corp Hgb Conc 32.6 g/dL (32-36); Mean Corpuscular Hgb 29.8 pg (27.0-32.0); Mean Corpuscular Volume 91.4 fL (81-99); Mean Platelet Vol. 10.4 fl (6.2-12.0); Monocyte# 0.55 X10^3/uL; Monocyte% 5.9 % (0-10); NRBC Flagged by Analyzer 0 % (0-5); Neutrophil # 6.45 X10^3/uL (2.7-7.7); Neutrophil % 69.6 % (47-70); Platelet Count 269 K/mm3 (150-450); RBC Distribution Width CV 12.6 % (11.6-14.6); RBC Distribution Width SD 42.5 fl (35.1-43.9); Red Blood Count 4.19 M/mm3 (4.2-5.4); White Blood Count 9.3 K/mm3 (4.4-11.0)
[2020-09-14 06:34] LABS: ALB/GLOB Ratio 0.7 RATIO (0.9-2.4); AST(SGOT) 27 U/L (15-37); Alanine Aminotransfer ALT/SGPT 26 U/L (13-56); Albumin, Serum 2.5 g/dL (3.2-5.0); Alkaline Phosphatase 80 U/L (45-117); Anion Gap 7 (5-15); BUN 4 mg/dL (7-18); BUN/Creat Ratio 5.4 RATIO (10-20); Calcium,Total 7.7 mg/dL (8.5-10.1); Chloride 111 mmol/L (98-107); Creatinine, Serum 0.73 mg/dL (0.55-1.02); EST Glomerular Filtration Rate 86 mL/min (>60); Est Glom Filt Rate - Afr Amer 104 mL/min (>60); Estimated Creatinine Clearance 66.44 ml/min; Globulin 3.8 g/dL (2.2-4.2); Glucose 70 mg/dL (74-106); Potassium 3.2 mmol/L (3.5-5.1); Protein, Total 6.3 g/dL (6.4-8.2); Sodium Level 141 mmol/L (136-145)
[2020-09-14] MEDS: proMETHazine 25 MG/ML Syringe 6.25 MG IM ×3 (06:48→22:01)
--- NOTE | 2020-09-14 07:00 | CT_ITS ---
STUDY: CT ABDOMEN AND PELVIS WITH CONTRAST REASON FOR EXAM: Female, 59 years old. C diff colitis RADIATION DOSAGE (If Supplied By Facility): CTDIvol = ( 16.12 ) mGy, DLP = ( 906.20 ) mGycm TECHNIQUE: Transaxial images were obtained from the dome of the diaphragm to the symphysis pubis with oral contrast. Oral and amp;amp; IV Gastrografin and amp;amp; 100mL Isovue-370 was administered. Sagittal and coronal images were reconstructed. Individualized dose optimization techniques were used for this CT. COMPARISON: 09/04/2020 FINDINGS: The visualized lung bases are unremarkable. The visualized portions of the heart are within normal limits. Normal liver. There is non-visualization of the gallbladder, which may be secondary to either contraction or a prior cholecystectomy. Normal spleen. Normal pancreas. Normal bilateral adrenal glands. Normal right kidney. Normal left kidney. Normal visualized stomach. Normal small intestine. There is diverticulosis, with thickening of the colon wall, and pericolonic inflammation changes consistent with acute diverticulitis. No loculated fluid collection to suggest abscess. No pneumoperitoneum to suggest perforation There are surgical clips in the region of the appendix consistent with a prior appendectomy. Normal abdominal aorta. Normal inferior vena cava. Normal retroperitoneum. Normal urinary bladder. Normal abdominal wall. Normal osseous structures. CT/Abdomen/Pelvis WITH Contrast IMPRESSION: Continued sigmoid diverticulitis without abscess or perforation. Electronically Signed: Etienne Presley MD at 9:22 EDT Tel , Service support ,
--- NOTE | 2020-09-14 07:06 | PN.SURG_ITS ---
Subjective Subjective The patient had 2 bowel movements this morning and 4 episodes of diarrhea yesterday. The patient reports some improvement in her pain. The patient is not having any vomiting but is requiring Phenergan due to nausea. Objective Data Objective Data Vital Signs: Vital Signs Temp Pulse Resp BP Pulse Ox 98.5 F 85 18 112/62 100 09/14/20 05:00 09/14/20 05:00 09/14/20 05:00 09/14/20 05:00 09/14/20 05:00 Oxygen Flow Rate (L/min) 4 Oxygen Delivery Method Room Air Weight: 174 lb 2.643 oz Body Mass Index (BMI) 31.8 Intake & Output: Intake and Output for Last 24 Hours 09/12/20 09/13/20 09/14/20 23:59 23:59 23:59 Intake Total 2776.67 / 2776.67 1300 / 1300 Output Total 1050 / 1050 Balance 1726.67 / 1726.67 1300 / 1300 Lab / Micro Data Result Diagrams: 09/14/20 05:43 09/14/20 05:43 Labs: Laboratory Results - last 24 hr 09/13/20 09/13/20 09/14/20 07:30 07:30 05:43 WBC 13.1 H 9.3 RBC 4.19 L 4.19 L Hgb 12.6 12.5 Hct 38.3 38.3 MCV 91.4 91.4 MCH 30.1 29.8 MCHC 32.9 32.6 RDW Std Deviation 40.9 42.5 RDW Coeff of Angel 12.2 12.6 Plt Count 285 269 MPV 10.7 10.4 Immature Gran % (Auto) 0.800 1.000 H Neut % (Auto) 81.7 H 69.6 Lymph % (Auto) 10.6 L 18.6 L [place] % (Auto) 6.0 5.9 Eos % (Auto) 0.6 4.3 Baso % (Auto) 0.3 0.6 Absolute Neuts (auto) 10.7 H 6.5 Absolute Lymphs (auto) 1.39 1.72 Nucleated RBC % 0 0 Sodium 142 Potassium 3.3 L Chloride 109 H Carbon Dioxide 27.0 Anion Gap 6 BUN 6 L Creatinine 0.78 Estim Creat Clear Calc 62.18 Est GFR (MDRD) Af Amer 97 Est GFR (MDRD) Non-Af 80 BUN/Creatinine Ratio 7.7 L Glucose 106 Calcium 7.7 L Total Bilirubin 0.40 AST 20 ALT 27 Alkaline Phosphatase 90 Total Protein 6.4 Albumin 2.5 L Globulin 3.9 Albumin/Globulin Ratio 0.6 L 09/14/20 05:43 WBC RBC Hgb Hct MCV MCH MCHC RDW Std Deviation RDW Coeff of Angel Plt Count MPV Immature Gran % (Auto) Neut % (Auto) Lymph % (Auto) [place] % (Auto) Eos % (Auto) Baso % (Auto) Absolute Neuts (auto) Absolute Lymphs (auto) Nucleated RBC % Sodium 141 Potassium 3.2 L Chloride 111 H Carbon Dioxide 23.0 Anion Gap 7 BUN 4 L Creatinine 0.73 Estim Creat Clear Calc 66.44 Est GFR (MDRD) Af Amer 104 Est GFR (MDRD) Non-Af 86 BUN/Creatinine Ratio 5.4 L Glucose 70 L Calcium 7.7 L Total Bilirubin 0.50 AST 27 ALT 26 Alkaline Phosphatase 80 Total Protein 6.3 L Albumin 2.5 L Globulin 3.8 Albumin/Globulin Ratio 0.7 L Micro: Microbiology 09/12/20 23:50 Mucosa - Nasopharyngeal SARS-CoV-2 Antigen (Rapid) - Final Physical Exam Const oriented x3 and no apparent distress Cardio regular rate and regular rhythm GI GI Narrative: She still very tender in the left lower quadrant with no guarding. The rest of the quadrants are normal Assessment & Plan Assessment/Plan (1) C. difficile colitis: PLAN: The patient still having diarrhea but her white count is decreasing and she is having improvement in her pain. Vitals are stable. Rechecking CT with IV and oral contrast today to see if there are any pericolonic abscesses or signs of perforation. Continue antibiotic regimen. N.p.o. with IV fluids. Okay to start Lovenox. Thomas Hassan MD Pager: [facility] [address] [place] [address], [address] [place] [address] Office:
[2020-09-14] MEDS: Potassium Chloride Oral Tablet 20 MEQ 60 MEQ PO (08:23)
--- NOTE | 2020-09-14 14:29 | PCM.PN.HOSP ---
Subjective Subjective Patient states she feels much better. Having 4 bowel movements yesterday. She states they are less watery. She is having less abdominal pain and nausea. Her CT scan looks improved. Objective Data Objective Data Vital Signs: Vital Signs Temp Pulse Resp BP Pulse Ox 97.4 F L 65 17 135/73 H 100 09/14/20 11:34 09/14/20 11:34 09/14/20 11:34 09/14/20 11:34 09/14/20 11:34 Oxygen Flow Rate (L/min) 4 Oxygen Delivery Method Room Air Weight: 79 kg Body Mass Index (BMI) 31.8 Intake & Output: Intake and Output for Last 24 Hours 09/12/20 09/13/20 09/14/20 23:59 23:59 23:59 Intake Total 2776.67 / 2776.67 2427.08 / 2427.08 Output Total 1050 / 1050 Balance 1726.67 / 1726.67 2427.08 / 2427.08 Lab / Micro Data Result Diagrams: 09/14/20 05:43 09/14/20 05:43 Labs: Laboratory Results - last 24 hr 09/14/20 09/14/20 05:43 05:43 WBC 9.3 RBC 4.19 L Hgb 12.5 Hct 38.3 MCV 91.4 MCH 29.8 MCHC 32.6 RDW Std Deviation 42.5 RDW Coeff of Angel 12.6 Plt Count 269 MPV 10.4 Immature Gran % (Auto) 1.000 H Neut % (Auto) 69.6 Lymph % (Auto) 18.6 L [place] % (Auto) 5.9 Eos % (Auto) 4.3 Baso % (Auto) 0.6 Absolute Neuts (auto) 6.5 Absolute Lymphs (auto) 1.72 Nucleated RBC % 0 Sodium 141 Potassium 3.2 L Chloride 111 H Carbon Dioxide 23.0 Anion Gap 7 BUN 4 L Creatinine 0.73 Estim Creat Clear Calc 66.44 Est GFR (MDRD) Af Amer 104 Est GFR (MDRD) Non-Af 86 BUN/Creatinine Ratio 5.4 L Glucose 70 L Calcium 7.7 L Total Bilirubin 0.50 AST 27 ALT 26 Alkaline Phosphatase 80 Total Protein 6.3 L Albumin 2.5 L Globulin 3.8 Albumin/Globulin Ratio 0.7 L Micro: Microbiology 09/13/20 05:24 Urine, Clean Catch Urine 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 Electronically Signed: Etienne Presley MD at 9:22 EDT Tel , Service support , Physical Exam Const alert, oriented x3, no apparent distress and no limitations Constitutional Narrative: Overweight middle-aged white female who is lying in bed, appears much improved in the last 24 hours. Much more interactive today. General Appearance: cooperative, comfortable and well kempt Exam Limitations: no limitations HEENT normocephalic and head/scalp atraumatic Head and Scalp: normocephalic Eyes no scleral icterus General Eye: normal appearance of both eyes Periorbital: periorbital findings normal Neck no meningeal signs Neck Narrative: Trachea midline General: trachea midline Thyroid: thyroid normal Resp normal respiratory effort, normal air movement, no retractions, no use of accessory muscles and clear to auscultation bilaterally Auscultation: Negative for crackles, rales, rhonchi or wheezes Cardio regular rate, regular rhythm, S1 normal heart sound, S2 normal heart sound, no murmurs, no rub, no gallops, no clicks and no JVD Cardio Narrative: Tachycardia. Peripheral Pulses: pulses 2+ throughout GI soft to palpation; Negative for hepatosplenomegaly GI Narrative: Bowel sounds remain mildly hyperactive, continues with mild diffuse tenderness although this appears to be improving, no point tenderness noted, no rebound Auscultation: normoactive bowel sounds and hyperactive bowel sounds Palpation: tender and guarding; Negative for hernia Extremity normal to inspection and full ROM Extremity Narrative: Trace edema in hands Peripheral Pulses: Yes pulses 2+ throughout Neuro oriented x3 Sensorium / Orientation: awake, alert, oriented to person, oriented to place and oriented to time Psych mental status grossly normal and denies hallucinations Assessment & Plan Assessment/Plan (1) C. difficile colitis: (2) Sepsis: PLAN: Acute severe colitis secondary to C. difficile infection -Initial CT scan done at admission showed involvement of the splenic flexure/descending/sigmoid -Repeat CT scan done this morning shows continued colitis and acute diverticulitis but appears improved per discussion with general surgery -Continue Zosyn given the extensive colitis and now diverticulitis that is being commented on in the CT scan -Continue oral vancomycin -Start clear liquid diet -Consider advancement tomorrow if patient tolerates -Leukocytosis has resolved -Continue antiemetics -Continue Tylenol -Continue pain medication -Discontinue IV fluids -Patient states she has a history of C. difficile infection approximately 5 years ago that was refractory to oral vancomycin and she required IV Flagyl at that time--> if she does not improve on oral Flagyl I would start Dificid Diverticulitis of the sigmoid colon -Continue Zosyn -See above Hypokalemia -Remains low suspect related to ongoing diarrhea -Replace with oral potassium -Repeat in a.m. GERD -Continue PPI DVT prophylaxis -Continue Lovenox Visit Charges Inpatient E&M: 89481 Subs Hosp L2
[2020-09-14] MEDS: Morphine 2 MG/ML Syringe IV ×2 (15:06→22:01)
[2020-09-14] MEDS: 0.9% Saline Lock 10 ML Syringe IV (19:04)
[2020-09-15] VITALS (11 sets, daily range): BP systolic 139–150; BP diastolic 68–83; PULSE 61–80; RESP 16–17; TEMP 36.6–36.9; O2SAT 97–100
[2020-09-15 06:16] LABS: Absolute Lymphocyte Count 2.02 X10^3/uL (0.83-4.51); Absolute Neutrophil Count 6.7 X10^3/uL (2.0-7.7); Basophil# 0.06 X10^3/uL; Basophil% 0.6 % (0-1); Eosinophil# 0.48 X10^3/uL; Eosinophils% 4.8 % (0-5); Hemoglobin 11.6 g/dL (12.0-15.0); Lymphocyte # 2.02 X10^3/ul (0.83-4.51); Lymphocyte % 20.2 % (19-41); Mean Corp Hgb Conc 32.2 g/dL (32-36); Mean Corpuscular Hgb 29.7 pg (27.0-32.0); Mean Corpuscular Volume 92.3 fL (81-99); Mean Platelet Vol. 10.9 fl (6.2-12.0); Monocyte# 0.62 X10^3/uL; Monocyte% 6.2 % (0-10); NRBC Flagged by Analyzer 0 % (0-5); Neutrophil # 6.74 X10^3/uL (2.7-7.7); Neutrophil % 67.3 % (47-70); Platelet Count 274 K/mm3 (150-450); RBC Distribution Width CV 12.6 % (11.6-14.6); RBC Distribution Width SD 42.6 fl (35.1-43.9)
[2020-09-15 06:40] LABS: Anion Gap 10 (5-15); BUN 5 mg/dL (7-18); BUN/Creat Ratio 7.7 RATIO (10-20); Calcium,Total 8.2 mg/dL (8.5-10.1); Chloride 113 mmol/L (98-107); Creatinine, Serum 0.65 mg/dL (0.55-1.02); EST Glomerular Filtration Rate 99 mL/min (>60); Est Glom Filt Rate - Afr Amer 120 mL/min (>60); Estimated Creatinine Clearance 74.61 ml/min; Glucose 66 mg/dL (74-106); Potassium 3.3 mmol/L (3.5-5.1); Sodium Level 142 mmol/L (136-145)
[2020-09-15] MEDS: proMETHazine 25 MG/ML Syringe 6.25 MG IM ×3 (06:41→19:00)
[2020-09-15] MEDS: Morphine 2 MG/ML Syringe IV ×3 (06:44→19:01)
--- NOTE | 2020-09-15 07:30 | PCM.PN.SRG ---
Subjective Subjective The patient reports that her pain is improving but it is still there. She did tolerate clear liquids which produced diarrhea yesterday. She reports that she is having a white mucousy discharge with her stools. Objective Data Objective Data Vital Signs: Vital Signs Temp Pulse Resp BP Pulse Ox 98.3 F 65 16 140/75 H 97 09/15/20 05:00 09/15/20 05:00 09/15/20 05:00 09/15/20 05:00 09/15/20 05:00 Oxygen Flow Rate (L/min) 4 Oxygen Delivery Method Nasal Cannula Weight: 174 lb 2.643 oz Body Mass Index (BMI) 31.8 Intake & Output: Intake and Output for Last 24 Hours 09/13/20 09/14/20 09/15/20 23:59 23:59 23:59 Intake Total 2776.67 / 2776.67 3600.00 / 3650.00 100 / 100 Output Total 1050 / 1050 Balance 1726.67 / 1726.67 3600.00 / 3650.00 100 / 100 Lab / Micro Data Result Diagrams: 09/15/20 05:21 09/15/20 05:21 Labs: Laboratory Results - last 24 hr 09/15/20 09/15/20 05:21 05:21 WBC 10.0 RBC 3.90 L Hgb 11.6 L Hct 36.0 L MCV 92.3 MCH 29.7 MCHC 32.2 RDW Std Deviation 42.6 RDW Coeff of Angel 12.6 Plt Count 274 MPV 10.9 Immature Gran % (Auto) 0.900 Neut % (Auto) 67.3 Lymph % (Auto) 20.2 [place] % (Auto) 6.2 Eos % (Auto) 4.8 Baso % (Auto) 0.6 Absolute Neuts (auto) 6.7 Absolute Lymphs (auto) 2.02 Nucleated RBC % 0 Sodium 142 Potassium 3.3 L Chloride 113 H Carbon Dioxide 19.0 L Anion Gap 10 BUN 5 L Creatinine 0.65 Estim Creat Clear Calc 74.61 Est GFR (MDRD) Af Amer 120 Est GFR (MDRD) Non-Af 99 BUN/Creatinine Ratio 7.7 L Glucose 66 L Calcium 8.2 L Micro: Microbiology 09/12/20 23:45 Blood Culture (Wb) - Anticubital Right Blood Culture - Preliminary No growth in 48 hours. 09/13/20 07:30 Blood Culture (Wb) - Anticubital Left Blood Culture - Preliminary No growth in 48 hours. 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 Electronically Signed: Etienne Presley MD at 9:22 EDT Tel , Service support , Physical Exam Const oriented x3 and no apparent distress Resp normal respiratory effort GI soft to palpation Palpation: tender LLQ Assessment & Plan Assessment/Plan (1) C. difficile colitis: PLAN: Patient has CT scan yesterday morning which did not show any progression of her colitis. The patient's white count continues to stay in the normal range. The patient was started on clear liquids yesterday but I would not advance beyond clears until the patient's pain resolves. Continue antibiotics. Thomas Hassan MD Pager: [facility] [place] [facility] [address] [place] [address], [address] [place] [address] Office:
--- NOTE | 2020-09-15 12:53 | PN.HOSP_ITS ---
Documented by User: David ELLIS 09/15/20 13:04 Subjective Subjective Patient is a 59-year-old female resting in bed, alert and oriented x3. Patient still reports moderate pain about the abdomen as well as diarrhea and white anal discharge. Patient does report that the symptoms have improved while on an tibiotic course. Denies chest pain, shortness of breath, palpitations, palpitations, sputum production and hemoptysis. Objective Data Objective Data Vital Signs: Vital Signs Temp Pulse Resp BP Pulse Ox 97.9 F 61 17 139/72 H 100 09/15/20 09:30 09/15/20 12:19 09/15/20 09:30 09/15/20 09:30 09/15/20 09:30 Oxygen Flow Rate (L/min) 4 Oxygen Delivery Method Room Air Weight: 174 lb 2.643 oz Body Mass Index (BMI) 31.8 Intake & Output: Intake and Output for Last 24 Hours 09/13/20 09/14/20 09/15/20 23:59 23:59 23:59 Intake Total 2776.67 / 2776.67 3600.00 / 3650.00 310 / 310 Output Total 1050 / 1050 Balance 1726.67 / 1726.67 3600.00 / 3650.00 310 / 310 Lab / Micro Data Result Diagrams: 09/15/20 05:21 09/15/20 05:21 Labs: Laboratory Results - last 24 hr 09/15/20 09/15/20 05:21 05:21 WBC 10.0 RBC 3.90 L Hgb 11.6 L Hct 36.0 L MCV 92.3 MCH 29.7 MCHC 32.2 RDW Std Deviation 42.6 RDW Coeff of Angel 12.6 Plt Count 274 MPV 10.9 Immature Gran % (Auto) 0.900 Neut % (Auto) 67.3 Lymph % (Auto) 20.2 [place] % (Auto) 6.2 Eos % (Auto) 4.8 Baso % (Auto) 0.6 Absolute Neuts (auto) 6.7 Absolute Lymphs (auto) 2.02 Nucleated RBC % 0 Sodium 142 Potassium 3.3 L Chloride 113 H Carbon Dioxide 19.0 L Anion Gap 10 BUN 5 L Creatinine 0.65 Estim Creat Clear Calc 74.61 Est GFR (MDRD) Af Amer 120 Est GFR (MDRD) Non-Af 99 BUN/Creatinine Ratio 7.7 L Glucose 66 L Calcium 8.2 L Micro: Microbiology 09/13/20 05:24 Urine, Clean Catch Urine Culture - Final Klebsiella pneumoniae sp pneum 09/12/20 23:45 Blood Culture (Wb) - Anticubital Right Blood Culture - Preliminary No growth in 48 hours. 09/13/20 07:30 Blood Culture (Wb) - Anticubital Left Blood Culture - Preliminary No growth in 48 hours. 09/12/20 23:50 Mucosa - Nasopharyngeal SARS-CoV-2 Antigen (Rapid) - Final Physical Exam Narrative See subjective. Const alert, oriented x3 and no apparent distress HEENT head/scalp atraumatic, moist oral mucous membranes and oropharynx normal Head and Scalp: normocephalic Eyes PERRL, EOMs intact bilaterally and conjunctivae normal Neck no lymphadenopathy, supple and no JVD Resp normal respiratory effort, no retractions, no use of accessory muscles and clear to auscultation bilaterally Cardio regular rate, regular rhythm, no murmurs and no JVD GI normal to inspection, nondistended, normoactive bowel sounds, soft to palpation, non-tender and non-distended Extremity normal to inspection, full ROM and no clubbing, cyanosis or edema Skin no rashes or lesions noted, no wounds, skin turgor normal and no jaundice Neuro CN's II-XII intact bilaterally Psych affect normal Assessment & Plan Assessment/Plan (1) C. difficile colitis: (2) Sepsis: (3) Hypokalemia: (4) Diverticulitis: PLAN: See subjective for patient presentation. Remain admitted overnight. 1) acute severe colitis secondary to C. difficile infection White blood cells at 10,000, vital signs stable and patient is afebrile. CT of the abdomen/pelvis obtained on 09/14/2020 demonstrated continued sigmoid diverticulitis without abscess or perforation, although there does seem to be improvement from admission in the inflammation based off of colonic wall thickening. Urine cultures grew Klebsiella, blood cultures demonstrate no growth in 48 hours, rapid Covid negative. No surgical intervention indicated at this time, per general surgery. Plan; continue Zosyn and vancomycin, continue morphine, continue Zofran as needed, Phenergan as needed. 2) diverticulitis of the sigmoid colon As above. 4) hypokalemia Currently 3.3. Plan; replace with IV potassium, repeat BMP in a.m. 5) GERD Continue PPI. DVT prophylaxis -Lovenox Patient seen by David Brock PA-C, under the supervision of Dr. Shell. Documented by User: Dr. Ross Shell MD 09/15/20 14:45 Subjective Subjective Seen and examined. Patient abdominal pain, diarrhea is mildly improved on IV antibiotics. CT abdomen during admission and yesterday discussed with the patient and her today in the room. No high-grade fever in the last 48 hours. Objective Data Lab / Micro Data Result Diagrams: 09/15/20 05:21 09/15/20 05:21 Physical Exam Narrative General: Alert, Oriented x3, Cooperative HEENT: Atraumatic, PERRLA, EOMI, Normocephalic Oral: No Gingival or Mucosal Lesions/ Ulcerations Neck: Supple, No JVD, Negative Carotid Bruits Lungs: Air entry diminished in bilateral lung bases. No crepitation/rhonchi Cardiovascular: Regular rate, Regular Rhythm, Normal S1, Normal S2, No murmurs Abdomen: Soft, tenderness present over left lower quadrant. No palpable mass. Bowel sounds present. : No renal angle tenderness. No suprapubic tenderness. Extremities: No edema, Capillary Refill Less than 3 Seconds Skin: No rashes, No breakdown Musculoskeletal: No Tenderness to Palpation of Joints or Extremities Neurological: Cranial nerves II-XII grossly intact, Deep Tendon Reflexes 2+/4 and Symmetrical, Neuro grossly intact Psych/Mental Status: Normal Affect, Appropriate. Assessment & Plan Assessment/Plan (1) C. difficile colitis: (2) Diverticulitis: PLAN: This patient was seen in conjunction with CALEB Lutz. I have independently interviewed and examined the patient and reviewed pertinent history, examination findings, laboratory and plan of management. I have reviewed the note and agree with the documented findings with the few additional points. In brief, patient is 59-year-old female admitted with severe abdominal pain diarrhea and C. difficile colitis. CT abdomen showed sigmoid diverticulitis and severe inflammation. Repeat CT abdomen with oral contrast shows pericolonic inflammation consistent with sigmoid diverticulitis but no loculated fluid collection, abscess or perforation. Surgeons note reviewed. Continue clear liquids, IV antibiotics Zosyn and p.o. vancomycin. Get ID consult. Other comorbidities as mentioned above. I have discussed my assessment with CALEB Lutz and orders have been reviewed. Visit Charges Inpatient E&M: 13343 Subs Hosp L2
[2020-09-15] MEDS: 0.9% Saline Lock 10 ML Syringe IV ×4 (13:02→19:03)
[2020-09-15] MEDS: Potassium Chloride 10mEq/100mL 10 MEQ/100 ML IV.SOLN. 100 MEQ IV BOLUS ×2 (14:25→16:15)
[2020-09-15] MEDS: Potassium Chloride 10mEq/100mL 10 MEQ/100 ML IV.SOLN. 75 MEQ IV BOLUS (18:27)
[2020-09-15] MEDS: Potassium Chloride 10mEq/100mL 10 MEQ/100 ML IV.SOLN. 50 MEQ IV BOLUS (20:18)
[2020-09-16] VITALS (9 sets, daily range): BP systolic 113–144; BP diastolic 65–79; PULSE 60–80; RESP 16–18; TEMP 36.5–36.8; O2SAT 95–98
[2020-09-16] MEDS: proMETHazine 25 MG/ML Syringe 6.25 MG IM ×4 (01:28→22:35)
[2020-09-16] MEDS: Morphine 2 MG/ML Syringe IV ×4 (01:28→22:31)
[2020-09-16] MEDS: 0.9% Saline Lock 10 ML Syringe IV ×3 (05:27→22:35)
--- NOTE | 2020-09-16 06:49 | PN.SURG_ITS ---
Subjective Subjective Patient feels like she is improving but she is still not able to tolerate much more than some Jell-O as she is having lack of appetite and she is still having pain Objective Data Objective Data Vital Signs: Vital Signs Temp Pulse Resp BP Pulse Ox 97.7 F L 63 16 140/70 H 98 09/16/20 05:15 09/16/20 05:15 09/16/20 05:15 09/16/20 05:15 09/16/20 05:15 Oxygen Flow Rate (L/min) 4 Oxygen Delivery Method Room Air Weight: 174 lb 2.643 oz Body Mass Index (BMI) 31.8 Intake & Output: Intake and Output for Last 24 Hours 09/14/20 09/15/20 09/16/20 23:59 23:59 23:59 Intake Total 3600.00 / 3650.00 1620.00 / 1680.00 170 / 170 Balance 3600.00 / 3650.00 1620.00 / 1680.00 170 / 170 Lab / Micro Data Result Diagrams: 09/15/20 05:21 09/15/20 05:21 Micro: Microbiology 09/13/20 05:24 Urine, Clean Catch Urine Culture - Final Klebsiella pneumoniae sp pneum 09/12/20 23:45 Blood Culture (Wb) - Anticubital Right Blood Culture - Preliminary No growth in 48 hours. 09/13/20 07:30 Blood Culture (Wb) - Anticubital Left Blood Culture - Preliminary No growth in 48 hours. 09/12/20 23:50 Mucosa - Nasopharyngeal SARS-CoV-2 Antigen (Rapid) - Final Physical Exam Const oriented x3 and no apparent distress Resp normal respiratory effort Cardio regular rate and regular rhythm GI soft to palpation Inspection: Negative for abdominal distention Palpation: tender LLQ Assessment & Plan Assessment/Plan (1) C. 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 I recommend continue clear liquids and not advancing until pain resolves. Continue antibiotics. Thomas Hassan MD Pager: [facility] [address] [place] [address], [address] [place] [address] Office:
[2020-09-16 07:07] LABS: Absolute Lymphocyte Count 1.92 X10^3/uL (0.83-4.51); Absolute Neutrophil Count 4.5 X10^3/uL (2.0-7.7); Basophil# 0.04 X10^3/uL; Basophil% 0.5 % (0-1); Eosinophil# 0.42 X10^3/uL; Eosinophils% 5.6 % (0-5); Hematocrit 36.9 % (37-47); Hemoglobin 12.1 g/dL (12.0-15.0); Lymphocyte # 1.92 X10^3/ul (0.83-4.51); Lymphocyte % 25.7 % (19-41); Mean Corp Hgb Conc 32.8 g/dL (32-36); Mean Corpuscular Hgb 29.9 pg (27.0-32.0); Mean Corpuscular Volume 91.1 fL (81-99); Mean Platelet Vol. 10.3 fl (6.2-12.0); Monocyte# 0.46 X10^3/uL; Monocyte% 6.1 % (0-10); NRBC Flagged by Analyzer 0 % (0-5); Neutrophil # 4.54 X10^3/uL (2.7-7.7); Neutrophil % 60.8 % (47-70); Platelet Count 287 K/mm3 (150-450); RBC Distribution Width CV 12.4 % (11.6-14.6); RBC Distribution Width SD 41.5 fl (35.1-43.9); Red Blood Count 4.05 M/mm3 (4.2-5.4); White Blood Count 7.5 K/mm3 (4.4-11.0)
[2020-09-16 07:30] LABS: Anion Gap 9 (5-15); BUN 4 mg/dL (7-18); BUN/Creat Ratio 6.2 RATIO (10-20); Calcium,Total 8.1 mg/dL (8.5-10.1); Chloride 109 mmol/L (98-107); Creatinine, Serum 0.65 mg/dL (0.55-1.02); EST Glomerular Filtration Rate 100 mL/min (>60); Est Glom Filt Rate - Afr Amer 121 mL/min (>60); Estimated Creatinine Clearance 74.61 ml/min; Glucose 80 mg/dL (74-106); Potassium 3.2 mmol/L (3.5-5.1); Sodium Level 141 mmol/L (136-145)
[2020-09-16] MEDS: Potassium Chloride 10mEq/100mL 10 MEQ/100 ML IV.SOLN. 100 MEQ IV BOLUS ×4 (09:35→13:07)
[2020-09-16 09:59] LABS: Magnesium 1.8 mg/dL (1.6-2.6); Phosphorus 3.3 mg/dL (2.5-4.9)
--- NOTE | 2020-09-16 11:15 | PN.HOSP_ITS ---
Documented by User: David ELLIS 09/16/20 11:24 Subjective Subjective Patient is a 59-year-old female comfortably resting in bed, alert and orient x3. Patient reports feeling improved from yesterday in regards to her abdominal pain, diarrhea and anal discharge. She reports that the symptoms are still p resent however are not as intense and that her abdominal pain is currently controlled on her current pain medication regimen. Denies chest pain, shortness of breath, palpitations, fever, chills, nausea and vomiting. Objective Data Objective Data Vital Signs: Vital Signs Temp Pulse Resp BP Pulse Ox 98.2 F 65 18 135/65 H 95 09/16/20 09:30 09/16/20 09:30 09/16/20 09:30 09/16/20 09:30 09/16/20 09:30 Oxygen Flow Rate (L/min) 4 Oxygen Delivery Method Room Air Weight: 174 lb 2.643 oz Body Mass Index (BMI) 31.8 Intake & Output: Intake and Output for Last 24 Hours 09/14/20 09/15/20 09/16/20 23:59 23:59 23:59 Intake Total 3600.00 / 3650.00 1620.00 / 1680.00 430 / 430 Balance 3600.00 / 3650.00 1620.00 / 1680.00 430 / 430 Lab / Micro Data Result Diagrams: 09/16/20 06:55 09/16/20 06:55 Labs: Laboratory Results - last 24 hr 09/16/20 09/16/20 09/16/20 06:55 06:55 06:55 WBC 7.5 RBC 4.05 L Hgb 12.1 Hct 36.9 L MCV 91.1 MCH 29.9 MCHC 32.8 RDW Std Deviation 41.5 RDW Coeff of Angel 12.4 Plt Count 287 MPV 10.3 Immature Gran % (Auto) 1.300 H Neut % (Auto) 60.8 Lymph % (Auto) 25.7 [place] % (Auto) 6.1 Eos % (Auto) 5.6 H Baso % (Auto) 0.5 Absolute Neuts (auto) 4.5 Absolute Lymphs (auto) 1.92 Nucleated RBC % 0 Sodium 141 Potassium 3.2 L Chloride 109 H Carbon Dioxide 23.0 Anion Gap 9 BUN 4 L Creatinine 0.65 Estim Creat Clear Calc 74.61 Est GFR (MDRD) Af Amer 121 Est GFR (MDRD) Non-Af 100 BUN/Creatinine Ratio 6.2 L Glucose 80 Calcium 8.1 L Phosphorus 3.3 Magnesium 1.8 Micro: Microbiology 09/13/20 05:24 Urine, Clean Catch Urine Culture - Final Klebsiella pneumoniae sp pneum 09/12/20 23:45 Blood Culture (Wb) - Anticubital Right Blood Culture - Preliminary No growth in 48 hours. 09/13/20 07:30 Blood Culture (Wb) - Anticubital Left Blood Culture - Preliminary No growth in 48 hours. 09/12/20 23:50 Mucosa - Nasopharyngeal SARS-CoV-2 Antigen (Rapid) - Final Physical Exam Narrative See subjective. Const alert, oriented x3 and no apparent distress HEENT head/scalp atraumatic and moist oral mucous membranes Head and Scalp: normocephalic Eyes PERRL, EOMs intact bilaterally and conjunctivae normal Neck no lymphadenopathy, supple and no JVD Resp normal respiratory effort, no retractions, no use of accessory muscles and clear to auscultation bilaterally Cardio regular rate, regular rhythm, no murmurs and no JVD GI Auscultation: normoactive bowel sounds Palpation: tender RLQ and other (tender to palpation. ) Extremity normal to inspection, full ROM and no clubbing, cyanosis or edema Skin no rashes or lesions noted, no wounds and skin turgor normal Neuro CN's II-XII intact bilaterally Psych affect normal Assessment & Plan Assessment/Plan (1) Diverticulitis: (2) Hypokalemia: (3) Sepsis: (4) C. difficile colitis: PLAN: See subjective for patient presentation. Patient diet can be advanced when abdominal pain has resolved, per General Surgery. Remain admitted overnight. Patient to return home on discharge. 1) Acute severe colitis secondary to C. difficile infection White blood cells at 7,500, vital signs stable and patient is afebrile. CT of the abdomen/pelvis obtained on 09/14/2020 demonstrated continued sigmoid diverticulitis without abscess or perforation, although there does seem to be improvement from admission in the inflammation based off of colonic wall thickening. Urine cultures grew Klebsiella, blood cultures demonstrate no growth in 48 hours, rapid Covid negative. No surgical intervention indicated at this time, per general surgery. Plan; continue Zosyn and vancomycin, continue morphine, continue Zofran as needed, Phenergan as needed. 2) Diverticulitis of the sigmoid colon As above. 4) Hypokalemia Currently 3.3. Plan; replace with IV potassium, repeat BMP in a.m. 5) GERD Continue PPI. DVT prophylaxis -Lovenox Patient seen by David Brock PA-C, under the supervision of Dr. Shell. Documented by User: Dr. Ross Shell MD 09/16/20 16:19 Subjective Subjective Patient is has abdominal pain and mild diarrhea but is improving. Her overall clinically she looks better. No fever. Objective Data Lab / Micro Data Result Diagrams: 09/16/20 06:55 09/16/20 06:55 Physical Exam Narrative Mild abdominal pain. General: Alert, Oriented x3, Cooperative HEENT: Atraumatic, PERRLA, EOMI, Normocephalic Oral: No Gingival or Mucosal Lesions/ Ulcerations Neck: Supple, No JVD, Negative Carotid Bruits Lungs: Air entry diminished in bilateral lung bases. No crepitation/rhonchi Cardiovascular: Regular rate, Regular Rhythm, Normal S1, Normal S2, No murmurs Abdomen: Soft, mild tenderness over LLQ. No palpable mass. Bowel sounds present. : No renal angle tenderness. No suprapubic tenderness. Extremities: No edema, Capillary Refill Less than 3 Seconds Skin: No rashes, No breakdown Musculoskeletal: No Tenderness to Palpation of Joints or Extremities Neurological: Cranial nerves II-XII grossly intact, Deep Tendon Reflexes 2+/4 and Symmetrical, Neuro grossly intact Psych/Mental Status: Normal Affect, Appropriate. Assessment & Plan Assessment/Plan (1) Diverticulitis: (2) C. difficile colitis: PLAN: This patient was seen in conjunction with CALEB Lutz. I have independently interviewed and examined the patient and reviewed pertinent history, examination findings, laboratory and plan of management. I have reviewed the note and agree with the documented findings with the few additional points. In brief, patient is 59-year-old female admitted with severe abdominal pain diarrhea and C. difficile colitis. CT abdomen showed sigmoid diverticulitis and severe inflammation. Repeat CT abdomen with oral contrast shows pericolonic inflammation consistent with sigmoid diverticulitis but no loculated fluid collection, abscess or perforation. Continue clear liquids, IV antibiotics Zosyn and p.o. vancomycin. ID consult reviewed and appreciated. Agree with continuing vancomycin p.o. and IV Zosyn.Gradual improvement. Other comorbidities as mentioned above. I have discussed my assessment with CALEB Lutz and orders have been reviewed. Visit Charges Inpatient E&M: 30246 Subs Hosp L2
--- NOTE | 2020-09-16 14:50 | CON.PCM.ID_ITS ---
Assessment & Plan Assessment/Plan (1) Diverticulitis: (2) C. difficile colitis: (3) Sepsis: PLAN: Improving with zosyn and po vanc, treating cdiff and diverticulitis. Recommended covid vaccination and discussed risks and benefits of it with her and her . No urinary symptoms, so doubt (+) ucx represents true infection. Will follow, thank you HPI Consult Data Date of Consult: 09/16/20 HPI Narrative HPI Narrative: BRETT MCINTYRE, is a 59 F with h/o cdiff about 3 years ago, presented with about 2-3 weeks of progressive diarrhea, abd cramping, blood/mucus in stool, no fever or chills. Saw PCP, cdiff was (+), started on po vanc a week ago. Sx were stable then suddenly much worse with severe sharp L sided abd pain, new fever. Came to ED, CT showed diverticulitis, admitted on po vanc and and zosyn. Seen by surgery, sx slowly improving. She and have not been vaccinated for covid, not interested in it. Full ROS performed and neg except as noted above. [facility] Medical History C. difficile colitis Diverticulitis Home Medications estradiol 1 patch TOPICAL QODAY 04/12/13 [History Last Taken Unknown] naproxen 500 mg PO BID PRN #20 tab 04/12/13 [Rx Last Taken Unknown] ondansetron 4 mg PO Q8H PRN PRN #10 tab 04/12/13 [Rx Last Taken Unknown] omeprazole 20 mg PO DAILY PRN 10/15/16 [History Last Taken Unknown] Allergy/AdvReac Type Severity Reaction Status Date / Time midazolam [From Versed] Allergy WENT Verified 09/12/20 17:19 COMPLETELY NUMB butorphanol tartrate AdvReac Abd Verified 09/12/20 17:19 [From Stadol] cramps/diarrhea codeine AdvReac Abd Verified 09/12/20 17:19 cramps/diarrhea Surgical History History of appendectomy History of cholecystectomy History of hysterectomy Social History (Updated 09/13/20 @ 02:23 by Zhanna Brand) household members: spouse Smoking Status: Never smoker alcohol intake: never Physical Exam Const alert, oriented x3 and no apparent distress General Appearance: cooperative HEENT normocephalic and head/scalp atraumatic Eyes PERRL and EOMs intact bilaterally Neck supple and No nodes Resp normal air movement and clear to auscultation bilaterally Cardio regular rate and regular rhythm GI normal to inspection, nondistended, normoactive bowel sounds GI Narrative: mild soreness Palpation: tender Extremity no clubbing, cyanosis or edema Skin no rashes or lesions noted Neuro CN's II-XII intact bilaterally Lab / Micro Data Result Diagrams: 09/16/20 06:55 09/16/20 06:55 Labs: Laboratory Results - last 24 hr 09/16/20 09/16/20 09/16/20 06:55 06:55 06:55 WBC 7.5 RBC 4.05 L Hgb 12.1 Hct 36.9 L MCV 91.1 MCH 29.9 MCHC 32.8 RDW Std Deviation 41.5 RDW Coeff of Angel 12.4 Plt Count 287 MPV 10.3 Immature Gran % (Auto) 1.300 H Neut % (Auto) 60.8 Lymph % (Auto) 25.7 [place] % (Auto) 6.1 Eos % (Auto) 5.6 H Baso % (Auto) 0.5 Absolute Neuts (auto) 4.5 Absolute Lymphs (auto) 1.92 Nucleated RBC % 0 Sodium 141 Potassium 3.2 L Chloride 109 H Carbon Dioxide 23.0 Anion Gap 9 BUN 4 L Creatinine 0.65 Estim Creat Clear Calc 74.61 Est GFR (MDRD) Af Amer 121 Est GFR (MDRD) Non-Af 100 BUN/Creatinine Ratio 6.2 L Glucose 80 Calcium 8.1 L Phosphorus 3.3 Magnesium 1.8
--- NOTE | 2020-09-16 15:40 | CASEMGMT ---
Pt screened with [facility] Palliative Screening Tool d/t strata 3, pt did not meet criteria.
[2020-09-17] VITALS (11 sets, daily range): BP systolic 97–124; BP diastolic 54–72; PULSE 65–95; RESP 16; TEMP 36.3–36.8; O2SAT 95–96
[2020-09-17] MEDS: 0.9% Saline Lock 10 ML Syringe IV (06:20)
[2020-09-17] MEDS: Ondansetron 4 MG/2 ML Vial IV ×3 (06:21→18:49)
[2020-09-17 06:23] LABS: Absolute Lymphocyte Count 1.86 X10^3/uL (0.83-4.51); Absolute Neutrophil Count 6.6 X10^3/uL (2.0-7.7); Basophil# 0.04 X10^3/uL; Basophil% 0.4 % (0-1); Eosinophil# 0.41 X10^3/uL; Eosinophils% 4.3 % (0-5); Hematocrit 39.1 % (37-47); Hemoglobin 12.8 g/dL (12.0-15.0); Lymphocyte # 1.86 X10^3/ul (0.83-4.51); Lymphocyte % 19.5 % (19-41); Mean Corp Hgb Conc 32.7 g/dL (32-36); Mean Corpuscular Hgb 29.7 pg (27.0-32.0); Mean Corpuscular Volume 90.7 fL (81-99); Mean Platelet Vol. 10.6 fl (6.2-12.0); Monocyte% 6.3 % (0-10); NRBC Flagged by Analyzer 0 % (0-5); Neutrophil # 6.58 X10^3/uL (2.7-7.7); Neutrophil % 68.8 % (47-70); Platelet Count 298 K/mm3 (150-450); RBC Distribution Width CV 12.3 % (11.6-14.6); RBC Distribution Width SD 41.3 fl (35.1-43.9); Red Blood Count 4.31 M/mm3 (4.2-5.4); White Blood Count 9.6 K/mm3 (4.4-11.0)
[2020-09-17 06:44] LABS: Anion Gap 10 (5-15); BUN 5 mg/dL (7-18); BUN/Creat Ratio 7.1 RATIO (10-20); Calcium,Total 8.2 mg/dL (8.5-10.1); Chloride 107 mmol/L (98-107); Creatinine, Serum 0.71 mg/dL (0.55-1.02); EST Glomerular Filtration Rate 90 mL/min (>60); Est Glom Filt Rate - Afr Amer 109 mL/min (>60); Estimated Creatinine Clearance 68.31 ml/min; Glucose 75 mg/dL (74-106); Potassium 3.4 mmol/L (3.5-5.1); Sodium Level 141 mmol/L (136-145)
--- NOTE | 2020-09-17 07:29 | PN.SURG_ITS ---
Subjective Subjective The patient reports she had 4 bouts of diarrhea but no abdominal pain this morning Objective Data Objective Data Vital Signs: Vital Signs Temp Pulse Resp BP Pulse Ox 98.2 F 70 16 121/70 H 95 09/17/20 02:20 09/17/20 03:00 09/17/20 02:20 09/17/20 02:20 09/17/20 02:20 Oxygen Flow Rate (L/min) 4 Oxygen Delivery Method Room Air Weight: 174 lb 2.643 oz Body Mass Index (BMI) 31.8 Intake & Output: Intake and Output for Last 24 Hours 09/15/20 09/16/20 09/17/20 23:59 23:59 23:59 Intake Total 1620.00 / 1680.00 1585 / 1585 50 / 50 Balance 1620.00 / 1680.00 1585 / 1585 50 / 50 Lab / Micro Data Result Diagrams: 09/17/20 05:48 09/17/20 05:48 Labs: Laboratory Results - last 24 hr 09/16/20 09/16/20 09/17/20 06:55 06:55 05:48 WBC 9.6 RBC 4.31 Hgb 12.8 Hct 39.1 MCV 90.7 MCH 29.7 MCHC 32.7 RDW Std Deviation 41.3 RDW Coeff of Angel 12.3 Plt Count 298 MPV 10.6 Immature Gran % (Auto) 0.700 Neut % (Auto) 68.8 Lymph % (Auto) 19.5 [place] % (Auto) 6.3 Eos % (Auto) 4.3 Baso % (Auto) 0.4 Absolute Neuts (auto) 6.6 Absolute Lymphs (auto) 1.86 Nucleated RBC % 0 Sodium 141 Potassium 3.2 L Chloride 109 H Carbon Dioxide 23.0 Anion Gap 9 BUN 4 L Creatinine 0.65 Estim Creat Clear Calc 74.61 Est GFR (MDRD) Af Amer 121 Est GFR (MDRD) Non-Af 100 BUN/Creatinine Ratio 6.2 L Glucose 80 Calcium 8.1 L Phosphorus 3.3 Magnesium 1.8 09/17/20 05:48 WBC RBC Hgb Hct MCV MCH MCHC RDW Std Deviation RDW Coeff of Angel Plt Count MPV Immature Gran % (Auto) Neut % (Auto) Lymph % (Auto) [place] % (Auto) Eos % (Auto) Baso % (Auto) Absolute Neuts (auto) Absolute Lymphs (auto) Nucleated RBC % Sodium 141 Potassium 3.4 L Chloride 107 Carbon Dioxide 24.0 Anion Gap 10 BUN 5 L Creatinine 0.71 Estim Creat Clear Calc 68.31 Est GFR (MDRD) Af Amer 109 Est GFR (MDRD) Non-Af 90 BUN/Creatinine Ratio 7.1 L Glucose 75 Calcium 8.2 L Phosphorus Magnesium Micro: Microbiology 09/13/20 05:24 Urine, Clean Catch Urine Culture - Final Klebsiella pneumoniae sp pneum 09/12/20 23:45 Blood Culture (Wb) - Anticubital Right Blood Culture - Preliminary No growth in 48 hours. 09/13/20 07:30 Blood Culture (Wb) - Anticubital Left Blood Culture - Preliminary No growth in 48 hours. 09/12/20 23:50 Mucosa - Nasopharyngeal SARS-CoV-2 Antigen (Rapid) - Final Physical Exam Const oriented x3 and no apparent distress Resp normal respiratory effort Cardio regular rate and regular rhythm GI soft to palpation GI Narrative: Tender to deep palpation but no guarding or rebound. Tenderness is improved Assessment & Plan Assessment/Plan (1) C. difficile colitis: PLAN: Patient reports no pain at rest. She does have some mild tenderness to deep palpation. I will advance her to a transitional diet. Continue antibiotics per primary team. Thomas Hassan MD Pager: [facility] [address] [place] [address], [address] [place] [address] Office:
[2020-09-17] MEDS: Potassium Chloride Oral Tablet 20 MEQ 60 MEQ PO (10:14)
--- NOTE | 2020-09-17 12:57 | PN.HOSP_ITS ---
Documented by User: David ELLIS 09/17/20 13:02 Subjective Subjective Patient is a 59-year-old female comfortably resting in bed, alert and orient x3. Patient reports continuous improvement of abdominal pain, diarrhea and white anal discharge. Patient does endorse mild nausea, however states that nausea is manageable. Denies chest pain, shortness of breath, palpitations, hemoptysis, sputum production, fever, chills and vomiting. Objective Data Objective Data Vital Signs: Vital Signs Temp Pulse Resp BP Pulse Ox 97.4 F L 81 16 97/54 L 96 09/17/20 10:15 09/17/20 10:15 09/17/20 10:15 09/17/20 10:15 09/17/20 10:15 Oxygen Flow Rate (L/min) 4 Oxygen Delivery Method Room Air Weight: 174 lb 2.643 oz Body Mass Index (BMI) 31.8 Intake & Output: Intake and Output for Last 24 Hours 09/15/20 09/16/20 09/17/20 23:59 23:59 23:59 Intake Total 1620.00 / 1680.00 1585 / 1585 610 / 610 Balance 1620.00 / 1680.00 1585 / 1585 610 / 610 Lab / Micro Data Result Diagrams: 09/17/20 05:48 09/17/20 05:48 Labs: Laboratory Results - last 24 hr 09/17/20 09/17/20 05:48 05:48 WBC 9.6 RBC 4.31 Hgb 12.8 Hct 39.1 MCV 90.7 MCH 29.7 MCHC 32.7 RDW Std Deviation 41.3 RDW Coeff of Angel 12.3 Plt Count 298 MPV 10.6 Immature Gran % (Auto) 0.700 Neut % (Auto) 68.8 Lymph % (Auto) 19.5 [place] % (Auto) 6.3 Eos % (Auto) 4.3 Baso % (Auto) 0.4 Absolute Neuts (auto) 6.6 Absolute Lymphs (auto) 1.86 Nucleated RBC % 0 Sodium 141 Potassium 3.4 L Chloride 107 Carbon Dioxide 24.0 Anion Gap 10 BUN 5 L Creatinine 0.71 Estim Creat Clear Calc 68.31 Est GFR (MDRD) Af Amer 109 Est GFR (MDRD) Non-Af 90 BUN/Creatinine Ratio 7.1 L Glucose 75 Calcium 8.2 L Micro: Microbiology 09/13/20 05:24 Urine, Clean Catch Urine Culture - Final Klebsiella pneumoniae sp pneum 09/12/20 23:45 Blood Culture (Wb) - Anticubital Right Blood Culture - Preliminary No growth in 48 hours. 09/13/20 07:30 Blood Culture (Wb) - Anticubital Left Blood Culture - Preliminary No growth in 48 hours. 09/12/20 23:50 Mucosa - Nasopharyngeal SARS-CoV-2 Antigen (Rapid) - Final Physical Exam Narrative See subjective. Const alert, oriented x3 and no apparent distress HEENT head/scalp atraumatic and moist oral mucous membranes Head and Scalp: normocephalic Eyes PERRL, EOMs intact bilaterally and conjunctivae normal Neck no lymphadenopathy, supple and no JVD Resp normal respiratory effort, no retractions, no use of accessory muscles and clear to auscultation bilaterally Cardio regular rate, regular rhythm and no murmurs GI normal to inspection, nondistended, normoactive bowel sounds, soft to palpation and non-distended Extremity normal to inspection, full ROM and no clubbing, cyanosis or edema Skin no rashes or lesions noted, no wounds and skin turgor normal Neuro CN's II-XII intact bilaterally Psych affect normal Assessment & Plan Assessment/Plan (1) Diverticulitis: (2) Hypokalemia: (3) Sepsis: (4) C. difficile colitis: PLAN: See subjective for patient presentation. Patient diet has been advanced to solid foods, per general surgery. Recommend to observe overnight and monitor how patient tolerates advancement in diet. If continuous improvement and no further progression of GI complaints recommend discharge home tomorrow. 1) Acute severe colitis secondary to C. difficile infection White blood cells at 9,600, vital signs stable and patient is afebrile. CT of the abdomen/pelvis obtained on 09/14/2020 demonstrated continued sigmoid diverticulitis without abscess or perforation, although there does seem to be improvement from admission in the inflammation based off of colonic wall thickening. Urine cultures grew Klebsiella, blood cultures demonstrate no growth in 48 hours, rapid Covid negative. No surgical intervention indicated at this time, per general surgery. Plan; continue Zosyn and vancomycin, continue morphine, continue Zofran as needed, Phenergan as needed, ID following. 2) Diverticulitis of the sigmoid colon As above. 4) Hypokalemia Currently 3.4. Plan; oral potassium ordered, repeat BMP in a.m. 5) GERD Continue PPI. DVT prophylaxis - Lovenox Patient seen by David Brock PA-C, under the supervision of Dr. Shell. Documented by User: Dr. Ross Shell MD 09/17/20 16:28 Subjective Subjective Patient abdominal pain is better. Had 4 times loose bowel movement yesterday but none in the morning. No fever. Objective Data Lab / Micro Data Result Diagrams: 09/17/20 05:48 09/17/20 05:48 Physical Exam Narrative Seen and examined. Abdominal pain is much improved General: Alert, Oriented x3, Cooperative HEENT: Atraumatic, PERRLA, EOMI, Normocephalic Oral: No Gingival or Mucosal Lesions/ Ulcerations Neck: Supple, No JVD, Negative Carotid Bruits Lungs: Air entry diminished in bilateral lung bases. No crepitation/rhonchi Cardiovascular: Regular rate, Regular Rhythm, Normal S1, Normal S2, No murmurs Abdomen: Soft, slight tenderness over LLQ. No rebound tenderness. No palpable mass. Bowel sounds present. : No renal angle tenderness. No suprapubic tenderness. Extremities: No edema, Capillary Refill Less than 3 Seconds Skin: No rashes, No breakdown Musculoskeletal: No Tenderness to Palpation of Joints or Extremities Neurological: Cranial nerves II-XII grossly intact, Deep Tendon Reflexes 2+/4 and Symmetrical, Neuro grossly intact Psych/Mental Status: Normal Affect, Appropriate. Assessment & Plan Assessment/Plan (1) Diverticulitis: (2) C. difficile colitis: PLAN: This patient was seen in conjunction with CALEB Lutz. I have independently interviewed and examined the patient and reviewed pertinent history, examination findings, laboratory and plan of management. I have reviewed the note and agree with the documented findings with the few additional points. In brief, patient is 59-year-old female admitted with severe abdominal pain diarrhea and C. difficile colitis. CT abdomen showed sigmoid diverticulitis and severe inflammation. Repeat CT abdomen with oral contrast shows pericolonic inflammation consistent with sigmoid diverticulitis but no loculated fluid collection, abscess or perforation. Continue clear liquids, IV antibiotics Zosyn and p.o. vancomycin. ID consult reviewed and appreciated. Agree with continuing vancomycin p.o. and IV Zosyn. 09/17: Improvement in abdominal pain and decreasing diarrhea frequency. Anticipate discharge tomorrow a.m. Other comorbidities as mentioned above. I have discussed my assessment with CALEB Lutz and orders have been reviewed. Visit Charges Inpatient E&M: 39588 Subs Hosp L2
[2020-09-18] MEDS: Ondansetron 4 MG/2 ML Vial IV ×2 (01:10→07:19)
[2020-09-18 03:00] VITALS: BP 121/74; PULSE 68; PULSE 73; RESP 16; TEMP 36.9; O2SAT 96
--- NOTE | 2020-09-18 06:31 | PCM.PN.SRG ---
Subjective Subjective Patient is well with only mild twinges of pain and she tolerated a regular diet with no increase in pain. She had 4 bowel movements yesterday. Objective Data Objective Data Vital Signs: Vital Signs Temp Pulse Resp BP Pulse Ox 98.4 F 68 16 121/74 H 96 09/18/20 03:00 09/18/20 03:00 09/18/20 03:00 09/18/20 03:00 09/18/20 03:00 Oxygen Flow Rate (L/min) 4 Oxygen Delivery Method Room Air Weight: 174 lb 2.643 oz Body Mass Index (BMI) 31.8 Intake & Output: Intake and Output for Last 24 Hours 09/16/20 09/17/20 09/18/20 23:59 23:59 23:59 Intake Total 1585 / 1585 1190 / 1190 50 / 50 Balance 1585 / 1585 1190 / 1190 50 / 50 Lab / Micro Data Result Diagrams: 09/17/20 05:48 09/17/20 05:48 Labs: Laboratory Results - last 24 hr 09/17/20 05:48 Sodium 141 Potassium 3.4 L Chloride 107 Carbon Dioxide 24.0 Anion Gap 10 BUN 5 L Creatinine 0.71 Estim Creat Clear Calc 68.31 Est GFR (MDRD) Af Amer 109 Est GFR (MDRD) Non-Af 90 BUN/Creatinine Ratio 7.1 L Glucose 75 Calcium 8.2 L Micro: Microbiology 09/13/20 05:24 Urine, Clean Catch Urine Culture - Final Klebsiella pneumoniae sp pneum 09/12/20 23:45 Blood Culture (Wb) - Anticubital Right Blood Culture - Preliminary No growth in 48 hours. 09/13/20 07:30 Blood Culture (Wb) - Anticubital Left Blood Culture - Preliminary No growth in 48 hours. 09/12/20 23:50 Mucosa - Nasopharyngeal SARS-CoV-2 Antigen (Rapid) - Final Physical Exam Const oriented x3 and no apparent distress Resp normal respiratory effort Cardio regular rate and regular rhythm GI soft to palpation GI Narrative: Mild tenderness in the left lower quadrant to deep palpation Inspection: Negative for abdominal distention Assessment & Plan Assessment/Plan (1) C. difficile colitis: PLAN: Patient seems to be improving daily. She is tolerating a transitional diet with continued diarrhea. Only mild pain. The patient may be discharged when okay with ID on oral antibiotics and follow-up with me as needed. Thomas Hassan MD Pager: [facility] [address] [place] [address], [address] [place] [address] Office:
[2020-09-18 07:00] VITALS: PULSE 64
[2020-09-18 07:13] LABS: Absolute Lymphocyte Count 1.76 X10^3/uL (0.83-4.51); Absolute Neutrophil Count 4.2 X10^3/uL (2.0-7.7); Basophil# 0.06 X10^3/uL; Basophil% 0.9 % (0-1); Eosinophil# 0.38 X10^3/uL; Eosinophils% 5.5 % (0-5); Hemoglobin 12.6 g/dL (12.0-15.0); Lymphocyte # 1.76 X10^3/ul (0.83-4.51); Lymphocyte % 25.3 % (19-41); Mean Corp Hgb Conc 32.3 g/dL (32-36); Mean Corpuscular Hgb 29.4 pg (27.0-32.0); Mean Corpuscular Volume 91.1 fL (81-99); Mean Platelet Vol. 10.7 fl (6.2-12.0); Monocyte# 0.51 X10^3/uL; Monocyte% 7.3 % (0-10); NRBC Flagged by Analyzer 0 % (0-5); Neutrophil # 4.18 X10^3/uL (2.7-7.7); Neutrophil % 60.1 % (47-70); Platelet Count 309 K/mm3 (150-450); RBC Distribution Width CV 12.7 % (11.6-14.6); RBC Distribution Width SD 42.3 fl (35.1-43.9); Red Blood Count 4.28 M/mm3 (4.2-5.4)
[2020-09-18 07:46] LABS: Anion Gap 7 (5-15); BUN 10 mg/dL (7-18); BUN/Creat Ratio 11.5 RATIO (10-20); Calcium,Total 8.5 mg/dL (8.5-10.1); Chloride 111 mmol/L (98-107); Creatinine, Serum 0.87 mg/dL (0.55-1.02); EST Glomerular Filtration Rate 71 mL/min (>60); Est Glom Filt Rate - Afr Amer 86 mL/min (>60); Estimated Creatinine Clearance 55.75 ml/min; Glucose 112 mg/dL (74-106); Potassium 3.6 mmol/L (3.5-5.1); Sodium Level 143 mmol/L (136-145)
[2020-09-18 09:00] VITALS: BP 126/74; PULSE 69; RESP 16; TEMP 36.8; O2SAT 98
--- NOTE | 2020-09-18 11:55 | PCM.DC ---
Discharge Instructions Diet Discharge Diet: Light diet - advance as tolerated Activity Discharge Activity: Return to Normal Activity Dressing / Incision Call your doctor if you observe: Fever of 101 or Higher and Uncontrolled pain Follow Up Care Test Results: Test results from this visit will be discussed in further detail at your follow-up appointment, if applicable. Discharge Plan Admission Admit Date/Time: 09/12/20 22:56 Primary Reason for Your Visit: c.diff colitis Attending Provider: Ross Shell Primary Care Provider: Romeo Robbins III Consulting Providers: Thomas Hassan ; Jaun Perez Discharge Orders/Prescriptions Prescriptions: New acidophilus-pectin, citrus 25 million cell -100 mg Tablet 1 tab PO TID Qty: 90 RF: 0 vancomycin 125 mg capsule 125 mg PO Q6H Qty: 36 RF: 0 amoxicillin-pot clavulanate [Augmentin] 875-125 mg tablet 1 tab PO BID Qty: 8 RF: 0 fluconazole [Diflucan] 150 mg tablet 150 mg PO Q3D Qty: 2 RF: 0 Continued estradiol 0.05 MG patch 1 patch topical QODAY RF: 0 ondansetron 4 MG tablet 4 mg PO Q8H PRN PRN (Reason: Nausea) Qty: 10 RF: 0 naproxen 500 MG tablet 500 mg PO BID PRN Qty: 20 RF: 0 omeprazole 20 MG capsule 20 mg PO DAILY PRN (Reason: Indigestion) RF: 0 Referrals / Follow Up: Thomas Hassan MD [STAFF PHYSICIAN] - See Referral Note (As needed) Romeo Robbins III, MD [Primary Care Provider] - In 1 Week Disposition Disposition (needs filled in before D/C Order can be placed): Home, self care
[2020-09-18] MEDS: Ondansetron ODT 4 MG Tablet PO (12:37)
--- NOTE | 2020-09-18 12:56 | DS.PCM_ITS ---
Documented by User: Lety Gaines NP, ACCOUNT GENERAL MANAGER-C 09/18/20 13:01 Providers Date of Admission: 09/12/20 Date of Discharge: 09/18/20 Primary Care Physician: Dr. Romeo Robbins III, MD Consultations 09/13/20 00:20 Consult: General Surgery Routine Consulting Provider: Thomas Hassan Reason for Consult: Acute colitis, C. difficile colitis EMERGENT Consult: No MD Notified: Yes Date Notified:: 09/12/20 Time Notified: 22:54 Method of Notification: Verbal 09/15/20 07:55 Consult: Infectious Disease Routine Consulting Provider: Jaun Perez Reason for Consult: recurrent C diff colitis EMERGENT Consult: No Notified: Yes Date Notified:: 09/15/20 Time Notified: 07:55 Method of Notification: Text Reason For Visit: ABD PAIN Diagnosis Discharge Diagnosis (1) C. difficile colitis: Status: Acute Code(s): A04.72 - Enterocolitis due to Clostridium difficile, not specified as recurrent Medications at Discharge Home Medications estradiol 1 patch TOPICAL QODAY 04/12/13 naproxen 500 mg PO BID PRN #20 tab 04/12/13 ondansetron 4 mg PO Q8H PRN PRN #10 tab 04/12/13 omeprazole 20 mg PO DAILY PRN 10/15/16 acidophilus-pectin, citrus 1 tab PO TID #90 tab 09/18/20 amoxicillin-pot clavulanate [Augmentin] 1 tab PO BID #8 tab 09/18/20 fluconazole [Diflucan] 150 mg PO Q3D #2 tab 09/18/20 vancomycin 125 mg PO Q6H #36 cap 09/18/20 Hospital Course Operations None Procedures None Summary of Care Provided Minutes Spent on Discharge: 35 Hospital Course: Patient is a 59-year-old female admitted 09/12/2020 due to abdominal pain. 1. Acute severe c.diff colitis and sigmoid diverticulitis-General surgery and ID consulted during admission. Clear liquids until pain resolves completely, advance diet as tolerated. Discharge on oral vancomycin to complete 14-day course and oral Augmentin to complete 9 day course. Patient reports she gets vaginal yeast infections consistently when she is on antibiotics. Discharged on oral Diflucan which she may begin if she develops symptoms. Follow up with PCP in 1 week. Follow-up with general surgery as needed. 2. Hypokalemia-replaced per protocol, resolved. 3. GERD- on PPI. Patient seen and examined prior to discharge. Physical assessment as noted below. Patient is stable for discharge with follow up recommendations as noted above. This patient was seen by BENI Nixon under the supervision of Dr. Shell. Physical Exam Const alert, oriented x3 and no apparent distress Orientation / Consciousness: awake, oriented to person, oriented to place and oriented to time HEENT normocephalic and moist oral mucous membranes Eyes PERRL, EOMs intact bilaterally and conjunctivae normal Neck no lymphadenopathy Resp normal respiratory effort and clear to auscultation bilaterally Cardio regular rate, regular rhythm and no murmurs Peripheral Pulses: pulses 2+ throughout GI normal to inspection, nondistended, normoactive bowel sounds, non-tender and non-distended Extremity normal to inspection Skin no rashes or lesions noted Lesions: no lesions Rashes: no rashes Trauma: no lacerations or abrasions Neuro CN's II-XII intact bilaterally, no focal motor deficits, no sensory deficits noted and deep tendon reflexes 2+ bilaterally Psych mental status grossly normal and affect normal ABG / Lab / Microbiology Data Result Diagrams: 09/18/20 06:28 09/18/20 06:28 Laboratory: Laboratory Results - last 24 hr 09/18/20 09/18/20 06:28 06:28 WBC 7.0 RBC 4.28 Hgb 12.6 Hct 39.0 MCV 91.1 MCH 29.4 MCHC 32.3 RDW Std Deviation 42.3 RDW Coeff of Angel 12.7 Plt Count 309 MPV 10.7 Immature Gran % (Auto) 0.900 Neut % (Auto) 60.1 Lymph % (Auto) 25.3 [place] % (Auto) 7.3 Eos % (Auto) 5.5 H Baso % (Auto) 0.9 Absolute Neuts (auto) 4.2 Absolute Lymphs (auto) 1.76 Nucleated RBC % 0 Sodium 143 Potassium 3.6 Chloride 111 H Carbon Dioxide 25.0 Anion Gap 7 BUN 10 Creatinine 0.87 Estim Creat Clear Calc 55.75 Est GFR (MDRD) Af Amer 86 Est GFR (MDRD) Non-Af 71 BUN/Creatinine Ratio 11.5 Glucose 112 H Calcium 8.5 Microbiology: Microbiology 09/13/20 07:30 Blood Culture - Final Blood Culture (Wb) - Anticubital Left No growth in 5 days. 09/12/20 23:45 Blood Culture - Final Blood Culture (Wb) - Anticubital Right No growth in 5 days. Microbiology 09/13/20 07:30 Blood Culture (Wb) - Anticubital Left Blood Culture - Final No growth in 5 days. 09/12/20 23:45 Blood Culture (Wb) - Anticubital Right Blood Culture - Final No growth in 5 days. 09/13/20 05:24 Urine, Clean Catch Urine Culture - Final Klebsiella pneumoniae sp pneum 09/12/20 23:50 Mucosa - Nasopharyngeal SARS-CoV-2 Antigen (Rapid) - Final D/C Instructions Discharge Diet: Light diet - advance as tolerated Discharge Activity: Return to Normal Activity Call your doctor if you observe: Fever of 101 or Higher and Uncontrolled pain Meaningful Use Info Meaningful Use Diagnoses (Choose all that apply): None applicable Discharge Plan Admission Admit Date/Time: 09/12/20 22:56 Primary Reason for Your Visit: c.diff colitis Attending Provider: Ross Shell Primary Care Provider: Romeo Robbins III Consulting Providers: Thomas Hassan ; Jaun Perez Discharge Orders/Prescriptions Prescriptions: New acidophilus-pectin, citrus 25 million cell -100 mg Tablet 1 tab PO TID Qty: 90 RF: 0 vancomycin 125 mg capsule 125 mg PO Q6H Qty: 36 RF: 0 amoxicillin-pot clavulanate [Augmentin] 875-125 mg tablet 1 tab PO BID Qty: 8 RF: 0 fluconazole [Diflucan] 150 mg tablet 150 mg PO Q3D Qty: 2 RF: 0 Continued estradiol 0.05 MG patch 1 patch topical QODAY RF: 0 ondansetron 4 MG tablet 4 mg PO Q8H PRN PRN (Reason: Nausea) Qty: 10 RF: 0 naproxen 500 MG tablet 500 mg PO BID PRN Qty: 20 RF: 0 omeprazole 20 MG capsule 20 mg PO DAILY PRN (Reason: Indigestion) RF: 0 Referrals / Follow Up: Thomas Hassan MD [STAFF PHYSICIAN] - See Referral Note (As needed) Eleazar Hernandez NP, ACCOUNT GENERAL MANAGER-C [NON-STAFF] - 09/25/20 11:00 am Disposition Disposition (needs filled in before D/C Order can be placed): Home, self care Documented by User: Dr. Ross Shell MD 09/18/20 15:30 Providers Date of Admission: 09/12/20 Reason For Visit: ABD PAIN Medications at Discharge Home Medications estradiol 1 patch TOPICAL QODAY 04/12/13 naproxen 500 mg PO BID PRN #20 tab 04/12/13 ondansetron 4 mg PO Q8H PRN PRN #10 tab 04/12/13 omeprazole 20 mg PO DAILY PRN 10/15/16 acidophilus-pectin, citrus 1 tab PO TID #90 tab 09/18/20 amoxicillin-pot clavulanate [Augmentin] 1 tab PO BID #8 tab 09/18/20 fluconazole [Diflucan] 150 mg PO Q3D #2 tab 09/18/20 vancomycin 125 mg PO Q6H #36 cap 09/18/20 Hospital Course Summary of Care Provided Hospital Course: This patient was seen in conjunction with ACCOUNT GENERAL MANAGER, Lety. I have independently interviewed and examined the patient and reviewed pertinent hi story, examination findings, laboratory and plan of management. I have reviewed the note and agree with the documented findings with the few additional points. n brief, patient is 59-year-old female admitted with severe abdominal pain diarrhea and C. difficile colitis. CT abdomen showed sigmoid diverticulitis and severe inflammation. Repeat CT abdomen with oral contrast shows pericolonic inflammation consistent with sigmoid diverticulitis but no loculated fluid collection, abscess or perforation. Initially n.p.o. and then started clear liquids, IV antibiotics Zosyn and p.o. vancomycin. ID consult reviewed and appreciated. Agree with continuing vancomycin p.o. and IV Zosyn. Patient t olerated soft diet. Patient abdominal pain improved. Stool consistency semisolid. Patient discharged on total of 2 weeks of vancomycin oral and Augmentin to complete of 9 days. Advised to follow-up surgery after discharge in 2 weeks. Will need colonoscopy after 1 month. Other comorbidities as mentioned above. I have discussed my assessment with ACCOUNT GENERAL MANAGERLety and orders have been reviewed. Discharge medication reconciliation done. Discharge follow-up instructions completed. Discharge process discussed with the patient and all questions were answered to patient's satisfaction. Total time spent, exact 35 minutes on discharge meds reconciliation, examination, coordination of care with nurses and ancillary staff, review of imaging and blood test and discussion with the patient on follow-up instructions Physical Exam Narrative Seen and examined. Abdominal pain is much improved General: Alert, Oriented x3, Cooperative HEENT: Atraumatic, PERRLA, EOMI, Normocephalic Oral: No Gingival or Mucosal Lesions/ Ulcerations Neck: Supple, No JVD, Negative Carotid Bruits Lungs: Air entry diminished in bilateral lung bases. No crepitation/rhonchi Cardiovascular: Regular rate, Regular Rhythm, Normal S1, Normal S2, No murmurs Abdomen: Soft, slight tenderness over LLQ. No rebound tenderness. No palpable mass. Bowel sounds present. : No renal angle tenderness. No suprapubic tenderness. Extremities: No edema, Capillary Refill Less than 3 Seconds Skin: No rashes, No breakdown Musculoskeletal: No Tenderness to Palpation of Joints or Extremities Neurological: Cranial nerves II-XII grossly intact, Deep Tendon Reflexes 2+/4 and Symmetrical, Neuro grossly intact Psych/Mental Status: Normal Affect, Appropriate. ABG / Lab / Microbiology Data Result Diagrams: 09/18/20 06:28 09/18/20 06:28 Discharge Plan Admission Admit Date/Time: 09/12/20 22:56 Primary Reason for Your Visit: c.diff colitis Attending Provider: Ross Shell Primary Care Provider: Romeo Robbins III Consulting Providers: Thomas Hassan ; Jaun Perez Discharge Orders/Prescriptions Prescriptions: New acidophilus-pectin, citrus 25 million cell -100 mg Tablet 1 tab PO TID Qty: 90 RF: 0 vancomycin 125 mg capsule 125 mg PO Q6H Qty: 36 RF: 0 amoxicillin-pot clavulanate [Augmentin] 875-125 mg tablet 1 tab PO BID Qty: 8 RF: 0 fluconazole [Diflucan] 150 mg tablet 150 mg PO Q3D Qty: 2 RF: 0 Continued estradiol 0.05 MG patch 1 patch topical QODAY RF: 0 ondansetron 4 MG tablet 4 mg PO Q8H PRN PRN (Reason: Nausea) Qty: 10 RF: 0 naproxen 500 MG tablet 500 mg PO BID PRN Qty: 20 RF: 0 omeprazole 20 MG capsule 20 mg PO DAILY PRN (Reason: Indigestion) RF: 0 Referrals / Follow Up: Thomas Hassan MD [STAFF PHYSICIAN] - See Referral Note (As needed) Eleazar Hernandez NP, ACCOUNT GENERAL MANAGER-C [NON-STAFF] - 09/25/20 11:00 am Disposition Disposition (needs filled in before D/C Order can be placed): Home, self care Charges/Coding Visit Charges Inpatient E&M: 66941 Disch Hosp
--- NOTE | 2020-09-19 14:04 | CASEMGMT ---
Addendum entered by Renee Bashir 09/19/20 14:10: Call back from pt and she states she has been doing 'ok' since discharge. Pt states no questions regarding discharge instructions/medications. Pt states has f/u appt's scheduled and plans to keep. Pt states no suggestions for [facility] and states 'you took really good care of me.' Pt voices no further questions/concerns/needs. Marbella FISHMAN CM Original Note: KYE MARS Discharge F/U Phone Call LACE: 10 Strata: 3 Discharge date: 09/18/20 Call date: 09/19/20 Call time: [id number] Attempted to reach pt without success, message left for pt to call this RN MADISYN back if/when able. Marbella FISHMAN CM Admission dx: Abd pain
== END 2020-09-18 13:30 | disposition home or self-care (01) | DRG 872 ==
LOC: ED 19:26 → PCU 09-13 06:57
PROVIDERS: Internal Medicine; Physician Assistant; Admitting Provider Hospitalist; Emergency Provider Student in an Organized Health Care Education/Training Program; PCP Family Medicine; Visit Provider Internal Medicine
DX: A41.9 Sepsis, unspecified organism (principal); A04.72 Enterocolitis due to Clostridium difficile, not specified as recurrent; K57.32 Diverticulitis of large intestine without perforation or abscess without bleeding; E87.6 Hypokalemia; Z20.822 Contact with and (suspected) exposure to COVID-19; K21.9 Gastro-esophageal reflux disease without esophagitis; E66.9 Obesity, unspecified; Z68.31 Body mass index [BMI] 31.0-31.9, adult; Z79.899 Other long term (current) drug therapy
CPT/HCPCS: 36415; 74177; 80048; 80053; 81001; 83605; 83690; 83735; 84100; 84484; 85025; 87040; 87077; 87086; 87088; 87186; 87426; 93005; 97802; 99284; J7030; J7040; Q9967; A4216; J2405

== ENCOUNTER 2020-09-22 05:37 | Inpatient (IN) | payer BC, SELFPAY ==
[2020-09-13 00:22] VITALS: BMI 31.8
[2020-09-22] VITALS (9 sets, daily range): BP systolic 112–137; BP diastolic 70–89; PULSE 61–104; RESP 17–26; TEMP 35.5–36.9; O2SAT 93–98; BMI 31.2; BMI 31.1
--- NOTE | 2020-09-22 06:04 | EDS_ITS ---
HPI <Dr. Myles Novoa DO - Last Filed: 09/22/20 08:09> HPI - GI History of Present Illness Chief Complaint: Abd Pain Informant: patient Abdominal Pain/Flank Pain Onset: Days (3) Context: Gradual Onset Timing: Continuous Quality: Aching and Sharp Location: RLQ and LLQ Current Severity: 5/10 Maximum Severity: 9/10 Worsened by: Nothing Relieved by: Nothing Nausea/Vomiting/Emesis GI Symptom: Positive for Nausea; Negative for Vomiting Diarrhea/Melena/Hematochezia GI Symptom: Positive for Diarrhea Onset: Days (3) Stool Quality: Positive for Watery Narrative Narrative: Patient presents with lower abdominal pain that has been getting worse over the past 3 days. Patient was recently admitted to the hospital for urinary tract infection, colitis, C. difficile, and diverticulitis. Patient is on Augmentin and vancomycin. Patient states that she was feeling fine when she was discharged 3 days ago. Patient states that her pain is gradually gotten worse. Patient states her diarrhea is getting worse. Patient states she is now also noticing some blood in her diarrhea. Patient states this is mild. Patient states her pain is constant aching but sharp at times. Patient states it is worse over the lower abdomen. Patient admits to nausea but denies any pulmonary PFSH <Dr. Myles Novoa DO - Last Filed: 09/22/20 08:09> PFSH Medical History C. difficile colitis Diverticulitis Home Medications estradiol 1 patch TOPICAL QODAY 04/12/13 [History Last Taken Unknown] naproxen 500 mg PO BID PRN #20 tab 04/12/13 [Rx Last Taken Unknown] ondansetron 4 mg PO Q8H PRN PRN #10 tab 04/12/13 [Rx Last Taken Unknown] omeprazole 20 mg PO DAILY PRN 10/15/16 [History Last Taken Unknown] acidophilus-pectin, citrus 1 tab PO TID #90 tab 09/18/20 [Rx Last Taken Unknown] amoxicillin-pot clavulanate [Augmentin] 1 tab PO BID #8 tab 09/18/20 [Rx Last Taken Unknown] fluconazole [Diflucan] 150 mg PO Q3D #2 tab 09/18/20 [Rx Last Taken Unknown] vancomycin 125 mg PO Q6H #36 cap 09/18/20 [Rx Last Taken Unknown] Allergy/AdvReac Type Severity Reaction Status Date / Time midazolam [From Versed] Allergy WENT Verified 09/22/20 05:41 COMPLETELY NUMB butorphanol tartrate AdvReac Abd Verified 09/22/20 05:41 [From Stadol] cramps/diarrhea codeine AdvReac Abd Verified 09/22/20 05:41 cramps/diarrhea Surgical History History of appendectomy History of cholecystectomy History of hysterectomy Social History household members: spouse Smoking Status: Never smoker alcohol intake: never ROS <Dr. Myles Novoa DO - Last Filed: 09/22/20 08:09> ROS ED Constitutional Constitutional ED: Denies chills or fever(s) Eyes Eyes: Denies blurry vision or change in vision ENT ENT ED: Reports sore throat; Denies rhinorrhea Cardiovascular Cardiovascular: Denies chest pain or palpitations Respiratory/Chest Respiratory/Chest: Reports cough and dyspnea Gastrointestinal Gastrointestinal: Reports abdominal pain, diarrhea and nausea; Denies vomiting Genitourinary Genitourinary ED: Denies dysuria or hematuria Musculoskeletal Musculoskeletal: Denies back pain or neck pain Integumentary Denies abscess or rash Neurologic Neurologic: Denies headache(s) or weakness Allergic/Immunologic Allergic/Immunologic ED: Denies mouth swelling or urticaria EXAM <Dr. Myles Novoa DO - Last Filed: 09/22/20 08:09> Physical Exam Const Vital Signs: 09/22/20 05:38 09/22/20 05:41 Temperature 96 F L 97.9 F Temperature Source Temporal Temporal Pulse Rate 104 H 83 Respiratory Rate 18 26 H Blood Pressure 137/89 H 119/71 Blood Pressure Mean 105 87 Pulse Ox 97 97 Oxygen Delivery Method Room Air Room Air Positive well nourished and well developed General Appearance ED: well developed HEENT Reports moist mucous membranes Neck supple and no JVD Resp normal respiratory effort and clear to auscultation bilaterally Cardio regular rate and regular rhythm GI non-distended Auscultation: normoactive bowel sounds Palpation: soft and tender LLQ, RLQ and suprapubic; Negative for guarding or rebound tenderness present Neuro CN's II-XII intact bilaterally, moves all extremities and no sensory deficits noted Sensorium / Orientation: alert, oriented to person, oriented to place and oriented to time Psych mental status grossly normal <Dr. Alexis Sanchez, DO - Last Filed: 09/22/20 10:10> Physical Exam Const Vital Signs: 09/22/20 05:38 09/22/20 05:41 Temperature 96 F L 97.9 F Temperature Source Temporal Temporal Pulse Rate 104 H 83 Respiratory Rate 18 26 H Blood Pressure 137/89 H 119/71 Blood Pressure Mean 105 87 Pulse Ox 97 97 Oxygen Delivery Method Room Air Room Air MDM <Dr. Myles Novoa, DO - Last Filed: 09/22/20 08:09> MDM MDM Narrative Medical decision making narrative: CBC shows a leukocytosis of 18.2. Comprehensive metabolic profile was essentially within normal limits. Lactate was elevated at 2.3. CT scan of the abdomen pelvis with oral and IV contrast was ordered and is pending. Care of the patient will be signed out to the oncoming physician pending CT results. Patient will likely require readmission to the hospital. Lab Data Attestation: I reviewed the patient's lab results. Labs: Laboratory Results - last 24 hr 09/22/20 09/22/20 09/22/20 05:30 05:30 06:18 WBC 18.2 H RBC 4.83 Hgb 14.4 Hct 43.5 MCV 90.1 MCH 29.8 MCHC 33.1 RDW Std Deviation 41.3 RDW Coeff of Angel 12.6 Plt Count 336 MPV 11.4 Immature Gran % (Auto) 0.400 Neut % (Auto) 81.3 H Lymph % (Auto) 12.1 L [place] % (Auto) 4.9 Eos % (Auto) 1.0 Baso % (Auto) 0.3 Absolute Neuts (auto) 14.8 H Absolute Lymphs (auto) 2.21 Nucleated RBC % 0 Sodium 139 Potassium 3.5 Chloride 107 Carbon Dioxide 23.0 Anion Gap 9 BUN 8 Creatinine 0.94 Estim Creat Clear Calc 51.60 Est GFR (MDRD) Af Amer 78 Est GFR (MDRD) Non-Af 64 BUN/Creatinine Ratio 8.5 L Glucose 116 H Lactic Acid 2.3 H* Calcium 9.2 Total Bilirubin 0.70 AST 61 H ALT 82 H Alkaline Phosphatase 89 Total Protein 7.8 Albumin 3.3 Globulin 4.5 H Albumin/Globulin Ratio 0.7 L Lipase 139 Urine Color Urine Clarity Urine pH Ur Specific [place] Urine Protein Urine Glucose (UA) Urine Ketones Urine Occult Blood Urine Nitrite Urine Bilirubin Urine Urobilinogen Ur Leukocyte Esterase Urine RBC Urine WBC Ur Squamous Epith Cells Urine Bacteria Urine Mucus 09/22/20 08:52 WBC RBC Hgb Hct MCV MCH MCHC RDW Std Deviation RDW Coeff of Angel Plt Count MPV Immature Gran % (Auto) Neut % (Auto) Lymph % (Auto) [place] % (Auto) Eos % (Auto) Baso % (Auto) Absolute Neuts (auto) Absolute Lymphs (auto) Nucleated RBC % Sodium Potassium Chloride Carbon Dioxide Anion Gap BUN Creatinine Estim Creat Clear Calc Est GFR (MDRD) Af Amer Est GFR (MDRD) Non-Af BUN/Creatinine Ratio Glucose Lactic Acid Calcium Total Bilirubin AST ALT Alkaline Phosphatase Total Protein Albumin Globulin Albumin/Globulin Ratio Lipase Urine Color Yellow Urine Clarity Sl. Cloudy Urine pH 8.0 Ur Specific [place] 1.010 Urine Protein Negative Urine Glucose (UA) Normal Urine Ketones 15 H Urine Occult Blood Negative Urine Nitrite Negative Urine Bilirubin Negative Urine Urobilinogen Normal Ur Leukocyte Esterase Negative Urine RBC 0 SEEN Urine WBC 0 SEEN Ur Squamous Epith Cells 0-5 SEEN Urine Bacteria 0 SEEN Urine Mucus 0 SEEN Radiography Diagnostic Testing: Radiology Impression Abdomen/Pelvis CT 09/22/20 06:10 IMPRESSION: Persistent noncomplicated sigmoid diverticulitis although there is less inflammatory response at this time. Electronically Signed: Neal Borges MD at 9:09 EDT , Service support , <Dr. Alexis Sanchez, DO - Last Filed: 09/22/20 10:10> [facility] Lab Data Labs: Laboratory Results - last 24 hr 09/22/20 09/22/20 09/22/20 05:30 05:30 06:18 WBC 18.2 H RBC 4.83 Hgb 14.4 Hct 43.5 MCV 90.1 MCH 29.8 MCHC 33.1 RDW Std Deviation 41.3 RDW Coeff of Angel 12.6 Plt Count 336 MPV 11.4 Immature Gran % (Auto) 0.400 Neut % (Auto) 81.3 H Lymph % (Auto) 12.1 L [place] % (Auto) 4.9 Eos % (Auto) 1.0 Baso % (Auto) 0.3 Absolute Neuts (auto) 14.8 H Absolute Lymphs (auto) 2.21 Nucleated RBC % 0 Sodium 139 Potassium 3.5 Chloride 107 Carbon Dioxide 23.0 Anion Gap 9 BUN 8 Creatinine 0.94 Estim Creat Clear Calc 51.60 Est GFR (MDRD) Af Amer 78 Est GFR (MDRD) Non-Af 64 BUN/Creatinine Ratio 8.5 L Glucose 116 H Lactic Acid 2.3 H* Calcium 9.2 Total Bilirubin 0.70 AST 61 H ALT 82 H Alkaline Phosphatase 89 Total Protein 7.8 Albumin 3.3 Globulin 4.5 H Albumin/Globulin Ratio 0.7 L Lipase 139 Urine Color Urine Clarity Urine pH Ur Specific [place] Urine Protein Urine Glucose (UA) Urine Ketones Urine Occult Blood Urine Nitrite Urine Bilirubin Urine Urobilinogen Ur Leukocyte Esterase Urine RBC Urine WBC Ur Squamous Epith Cells Urine Bacteria Urine Mucus 09/22/20 08:52 WBC RBC Hgb Hct MCV MCH MCHC RDW Std Deviation RDW Coeff of Angel Plt Count MPV Immature Gran % (Auto) Neut % (Auto) Lymph % (Auto) [place] % (Auto) Eos % (Auto) Baso % (Auto) Absolute Neuts (auto) Absolute Lymphs (auto) Nucleated RBC % Sodium Potassium Chloride Carbon Dioxide Anion Gap BUN Creatinine Estim Creat Clear Calc Est GFR (MDRD) Af Amer Est GFR (MDRD) Non-Af BUN/Creatinine Ratio Glucose Lactic Acid Calcium Total Bilirubin AST ALT Alkaline Phosphatase Total Protein Albumin Globulin Albumin/Globulin Ratio Lipase Urine Color Yellow Urine Clarity Sl. Cloudy Urine pH 8.0 Ur Specific [place] 1.010 Urine Protein Negative Urine Glucose (UA) Normal Urine Ketones 15 H Urine Occult Blood Negative Urine Nitrite Negative Urine Bilirubin Negative Urine Urobilinogen Normal Ur Leukocyte Esterase Negative Urine RBC 0 SEEN Urine WBC 0 SEEN Ur Squamous Epith Cells 0-5 SEEN Urine Bacteria 0 SEEN Urine Mucus 0 SEEN Radiography Diagnostic Testing: Radiology Impression Abdomen/Pelvis CT 09/22/20 06:10 IMPRESSION: Persistent noncomplicated sigmoid diverticulitis although there is less inflammatory response at this time. Electronically Signed: Neal Borges MD at 9:09 EDT , Service support , Discharge Plan Triage Chief Complaint: Abd Pain ED Provider: Alexis Sanchez Dx/Rx/DC Orders Primary Care Provider: Romeo Robbins III
--- NOTE | 2020-09-22 06:10 | CT_ITS ---
STUDY: CT ABDOMEN AND PELVIS WITH CONTRAST REASON FOR EXAM: Female, 59 years old. Abdominal pain -- IV PO Contrast. History of diverticulitis. RADIATION DOSAGE (If Supplied By Facility): CTDIvol = ( 15.59 ) mGy, DLP = ( 848.99 ) mGycm TECHNIQUE: Transaxial images were obtained from the dome of the diaphragm to the symphysis pubis with oral contrast. Oral and amp;amp; IV Gastrografin and amp;amp; 100mL Isovue-370 was administered. Sagittal and coronal images were reconstructed. Individualized dose optimization techniques were used for this CT. COMPARISON: Comparison is made with prior study dated 09/14/2020. FINDINGS: The visualized lung bases are unremarkable. The visualized portions of the heart are within normal limits. Mildly dilated intrahepatic ducts most likely secondary to prior cholecystectomy. Stable 1 cm cyst in the lower aspect of the right lobe of the liver. The patient is status post cholecystectomy. Normal spleen. Normal pancreas. Normal bilateral adrenal glands. Normal right kidney. Stable 3 mm nonobstructive calculus in the upper pole of the left kidney. Normal visualized stomach. Normal small intestine. There is diverticulosis, with thickening of the colon wall, and pericolonic inflammation changes consistent with acute diverticulitis. Since prior study, there is evidence of less inflammatory change in the perisigmoid peritoneal fat. There are surgical clips in the region of the appendix consistent with a prior appendectomy. Normal abdominal aorta. Normal inferior vena cava. There is borderline retroperitoneal lymphadenopathy with enlarged nodes no greater than 10mm in the short axis diameter. Normal urinary bladder. There is absence of the uterus consistent with a prior hysterectomy. Normal abdominal wall. Normal osseous structures. CT/Abdomen/Pelvis WITH Contrast IMPRESSION: Persistent noncomplicated sigmoid diverticulitis although there is less inflammatory response at this time. Electronically Signed: Neal Borges MD at 9:09 EDT , Service support ,
[2020-09-22 06:21] LABS: Absolute Lymphocyte Count 2.21 X10^3/uL (0.83-4.51); Absolute Neutrophil Count 14.8 X10^3/uL (2.0-7.7); Basophil# 0.05 X10^3/uL; Basophil% 0.3 % (0-1); Eosinophil# 0.18 X10^3/uL; Hematocrit 43.5 % (37-47); Hemoglobin 14.4 g/dL (12.0-15.0); Lymphocyte # 2.21 X10^3/ul (0.83-4.51); Lymphocyte % 12.1 % (19-41); Mean Corp Hgb Conc 33.1 g/dL (32-36); Mean Corpuscular Hgb 29.8 pg (27.0-32.0); Mean Corpuscular Volume 90.1 fL (81-99); Mean Platelet Vol. 11.4 fl (6.2-12.0); Monocyte% 4.9 % (0-10); NRBC Flagged by Analyzer 0 % (0-5); Neutrophil % 81.3 % (47-70); Platelet Count 336 K/mm3 (150-450); RBC Distribution Width CV 12.6 % (11.6-14.6); RBC Distribution Width SD 41.3 fl (35.1-43.9); Red Blood Count 4.83 M/mm3 (4.2-5.4); White Blood Count 18.2 K/mm3 (4.4-11.0)
[2020-09-22] MEDS: Morphine 4 MG/ML Syringe IV ×2 (06:30→10:10)
[2020-09-22 06:32] LABS: ALB/GLOB Ratio 0.7 RATIO (0.9-2.4); AST(SGOT) 61 U/L (15-37); Alanine Aminotransfer ALT/SGPT 82 U/L (13-56); Albumin, Serum 3.3 g/dL (3.2-5.0); Alkaline Phosphatase 89 U/L (45-117); Anion Gap 9 (5-15); BUN 8 mg/dL (7-18); BUN/Creat Ratio 8.5 RATIO (10-20); Calcium,Total 9.2 mg/dL (8.5-10.1); Chloride 107 mmol/L (98-107); Creatinine, Serum 0.94 mg/dL (0.55-1.02); EST Glomerular Filtration Rate 64 mL/min (>60); Est Glom Filt Rate - Afr Amer 78 mL/min (>60); Globulin 4.5 g/dL (2.2-4.2); Glucose 116 mg/dL (74-106); Lipase 139 U/L (73-393); Potassium 3.5 mmol/L (3.5-5.1); Protein, Total 7.8 g/dL (6.4-8.2); Sodium Level 139 mmol/L (136-145)
[2020-09-22] MEDS: proMETHazine 25 MG/ML Syringe 6.25 MG IM ×3 (06:32→23:23)
[2020-09-22 07:03] LABS: Lactic Acid 2.3 mmol/L (0.4-1.9)
[2020-09-22 09:13] LABS: Bacteria 0 SEEN /hpf (None Seen); Mucous, Urine 0 SEEN /hpf (<or=2+); Red Blood Cells-Urine 0 SEEN /hpf (0-5); White Blood Cells 0 SEEN /hpf (0-5)
[2020-09-22 09:17] LABS: Color, Urine Yellow (Yellow); Glucose, Dipstick Normal (Normal); Ketone-Dipstick 15 mg/dl (Negative); Leukocyte Esterase-Dipstick Negative /ul (Negative); Nitrite-Dipstick Negative (Negative); Occult Blood-Urine Negative /ul (Negative); Protein-Dipstick Negative (Negative); Urine Bilirubin Dipstick Negative (Negative); Urine Clarity Sl. Cloudy (Clear); Urine Urobilinogen Normal (Normal)
[2020-09-22 09:25] LABS: Squamous Epithelial Cells - UA 0-5 SEEN /hpf (5-10)
--- NOTE | 2020-09-22 09:45 | NURSING ---
DR JADA WARREN
--- NOTE | 2020-09-22 09:53 | NURSING ---
MED SURG JADA SMITH, DIVERTICULITIS
[2020-09-22 10:21] LABS: Reflex Lactate? Y
--- NOTE | 2020-09-22 10:58 | HP.PCM.HOS_ITS ---
[facility] - General General Date of Admission: 09/22/20 Date of Service: 09/22/20 Chief Complaint: Abdominal pain, persistent diarrhea. [facility] Narrative BRETT MCINTYRE, is a 59 F with no significant past medical history presented to the emergency room because of recurrent worsening diarrhea and abdominal pain after she was diagnosed with C. difficile colitis, admitted to the hospital last week and was discharged 4 days ago. Patient was discharged from the hospital on September 18, 2020 after admission for acute severe colitis due to C. difficile col itis with sepsis, was discharged on p.o. vancomycin and Augmentin. She stated that first day after discharge, she felt okay but next day, she started having increasing abdominal pain, lower abdominal pain, sharp pain, 8 out of 10 in severity, aggravated by any type of movement, associated with nausea and vomiting as well as diarrhea. She has been having increasing diarrhea over the last couple of days, almost 10 times a day, loose stool without blood. She reported associated low-grade fever of up to 99.7 Fahrenheit. During that time, she remained on p.o. vancomycin and Augmentin. In the emergency department, initially she was tachycardic, afebrile, heart rate stable, pulse ox was mainta ined on room air. Routine blood work was remarkable for leukocytosis, otherwise normal. LFT revealed slight elevated liver transaminases, otherwise normal. Lactic acid was 2.3. CT scan abdomen and pelvis with contrast revealed persistent noncomplicated sigmoid diverticulitis with less inflammatory response. CT scan abdomen and pelvis that was done on September 12, 2020 revealed acute colitis of the splenic flexure and extending through the sigmoid colon, most severe at the junction of the descending and sigmoid colon. She is being admitted for persistent acute colitis/diverticulitis due to C. difficile infection complicated by severe sepsis. [facility] Medical History C. difficile colitis Diverticulitis Home Medications estradiol 1 patch TOPICAL QODAY 04/12/13 [History Last Taken Unknown] naproxen 500 mg PO BID PRN #20 tab 04/12/13 [Rx Last Taken Unknown] ondansetron 4 mg PO Q8H PRN PRN #10 tab 04/12/13 [Rx Last Taken Unknown] omeprazole 20 mg PO DAILY PRN 10/15/16 [History Last Taken Unknown] acidophilus-pectin, citrus 1 tab PO TID #90 tab 09/18/20 [Rx Last Taken Unknown] amoxicillin-pot clavulanate [Augmentin] 1 tab PO BID #8 tab 09/18/20 [Rx Last Taken Unknown] vancomycin 125 mg PO Q6H #36 cap 09/18/20 [Rx Last Taken Unknown] fluconazole [Diflucan] 150 mg PO Q3D PRN 09/22/20 [History Last Taken Unknown] Allergy/AdvReac Type Severity Reaction Status Date / Time midazolam [From Versed] Allergy WENT Verified 09/22/20 05:41 COMPLETELY NUMB butorphanol tartrate AdvReac Abd Verified 09/22/20 05:41 [From Stadol] cramps/diarrhea codeine AdvReac Abd Verified 09/22/20 05:41 cramps/diarrhea Surgical History History of appendectomy History of cholecystectomy History of hysterectomy Social History household members: spouse Smoking Status: Never smoker alcohol intake: never ROS Constitutional Constitutional: Reports anorexia, fever(s) and malaise; Denies chills or fatigue Eyes Eyes: Denies blurry vision, change in eye color, change in vision, double vision or eye pain ENT HEENT: Denies ear pain, epistaxis, headache(s), nasal congestion, post nasal drip or sore throat Cardiovascular Cardiovascular: Denies chest pain, dyspnea on exertion, edema, lightheadedness, orthopnea, palpitations, paroxysmal nocturnal dyspnea or syncope Respiratory/Chest Respiratory/Chest: Denies cough, dyspnea, hemoptysis, productive cough, shortness of breath at rest, shortness of breath with exertion or wheezing Gastrointestinal Gastrointestinal: Reports abdominal pain, diarrhea, nausea and vomiting; Denies constipation, hematemesis, hematochezia or melena Genitourinary Genitourinary: Denies burning urination, dysuria, hematuria, urinary hesitancy or urinary urgency Musculoskeletal Musculoskeletal: Denies arthralgias, back pain, joint pain, joint swelling, myalgias or neck pain Neurologic Neurologic: Denies confusion, dizziness, focal weakness, headache(s), numbness, paresthesias, seizures, tingling or tremor(s) Psychiatric Psychiatric: Denies anxiety, depression, hallucinations, homicidal ideation or suicidal ideation Endocrine Endocrinology: Denies change in body appearance, cold intolerance, heat intolerance, polydipsia or polyuria Hematologic/Lymphatic Hematologic/Lymphatic: Denies easy bleeding, easy bruising or lymphadenopathy Allergic/Immunologic Allergic/Immunologic: Denies itchy eyes, rhinitis, throat swelling, tongue swelling, hives, urticaria or wheezing Vital Signs Vital Signs Vital Signs: 09/22/20 05:38 09/22/20 05:41 09/22/20 10:51 Temperature 96 F L 97.9 F 98.4 F Temperature Source Temporal Temporal Oral Pulse Rate 104 H 83 61 Respiratory Rate 18 26 H 18 Blood Pressure 137/89 H 119/71 130/82 H Blood Pressure Mean 105 87 98 Blood Pressure Source Monitor Blood Pressure Position Semi-Fowlers Blood Pressure Location Right Arm Pulse Ox 97 97 93 Oxygen Delivery Method Room Air Room Air Room Air Weight Weight: 170 lb 6.4 oz Body Mass Index (BMI) 31.1 Physical Exam Const alert, oriented x3 and no limitations Constitutional Narrative: She is in mild to moderate pain. General Appearance: cooperative, comfortable and well kempt HEENT normocephalic and head/scalp atraumatic HEENT Narrative: Dry mucous membranes. Head and Scalp: normocephalic and atraumatic Eyes PERRL, EOMs intact bilaterally, conjunctivae normal and no scleral icterus General Eye: normal appearance of both eyes Periorbital: periorbital findings normal Neck no lymphadenopathy, supple, no meningeal signs, no JVD and no carotid bruits General: trachea midline Thyroid: thyroid normal Resp normal respiratory effort, normal air movement and clear to auscultation bilaterally Auscultation: Negative for crackles, rales, rhonchi or wheezes Cardio regular rate, regular rhythm, S1 normal heart sound, S2 normal heart sound, no murmurs and no JVD Peripheral Pulses: pulses 2+ throughout GI Negative for hepatosplenomegaly GI Narrative: Mildly distended, generalized tenderness, guarding, hypoactive bowel sounds. Auscultation: normoactive bowel sounds and hypoactive bowel sounds Palpation: tender and guarding Extremity normal to inspection, full ROM and no clubbing, cyanosis or edema Skin no rashes or lesions noted, no wounds and no petechiae Neuro oriented x3, CN's II-XII intact bilaterally and moves all extremities Sensorium / Orientation: alert Speech: speech normal Motor Exam: strength 5/5 throughout Psych mental status grossly normal, affect normal and denies hallucinations Results Lab / Micro Data Result Diagrams: 09/22/20 05:30 09/22/20 05:30 Labs: Laboratory Results - last 24 hr 09/22/20 09/22/20 09/22/20 05:30 05:30 06:18 WBC 18.2 H RBC 4.83 Hgb 14.4 Hct 43.5 MCV 90.1 MCH 29.8 MCHC 33.1 RDW Std Deviation 41.3 RDW Coeff of Angel 12.6 Plt Count 336 MPV 11.4 Immature Gran % (Auto) 0.400 Neut % (Auto) 81.3 H Lymph % (Auto) 12.1 L [place] % (Auto) 4.9 Eos % (Auto) 1.0 Baso % (Auto) 0.3 Absolute Neuts (auto) 14.8 H Absolute Lymphs (auto) 2.21 Nucleated RBC % 0 Sodium 139 Potassium 3.5 Chloride 107 Carbon Dioxide 23.0 Anion Gap 9 BUN 8 Creatinine 0.94 Estim Creat Clear Calc 51.60 Est GFR (MDRD) Af Amer 78 Est GFR (MDRD) Non-Af 64 BUN/Creatinine Ratio 8.5 L Glucose 116 H Lactic Acid 2.3 H* Calcium 9.2 Total Bilirubin 0.70 AST 61 H ALT 82 H Alkaline Phosphatase 89 Total Protein 7.8 Albumin 3.3 Globulin 4.5 H Albumin/Globulin Ratio 0.7 L Lipase 139 Urine Color Urine Clarity Urine pH Ur Specific [place] Urine Protein Urine Glucose (UA) Urine Ketones Urine Occult Blood Urine Nitrite Urine Bilirubin Urine Urobilinogen Ur Leukocyte Esterase Urine RBC Urine WBC Ur Squamous Epith Cells Urine Bacteria Urine Mucus 09/22/20 08:52 WBC RBC Hgb Hct MCV MCH MCHC RDW Std Deviation RDW Coeff of Angel Plt Count MPV Immature Gran % (Auto) Neut % (Auto) Lymph % (Auto) [place] % (Auto) Eos % (Auto) Baso % (Auto) Absolute Neuts (auto) Absolute Lymphs (auto) Nucleated RBC % Sodium Potassium Chloride Carbon Dioxide Anion Gap BUN Creatinine Estim Creat Clear Calc Est GFR (MDRD) Af Amer Est GFR (MDRD) Non-Af BUN/Creatinine Ratio Glucose Lactic Acid Calcium Total Bilirubin AST ALT Alkaline Phosphatase Total Protein Albumin Globulin Albumin/Globulin Ratio Lipase Urine Color Yellow Urine Clarity Sl. Cloudy Urine pH 8.0 Ur Specific [place] 1.010 Urine Protein Negative Urine Glucose (UA) Normal Urine Ketones 15 H Urine Occult Blood Negative Urine Nitrite Negative Urine Bilirubin Negative Urine Urobilinogen Normal Ur Leukocyte Esterase Negative Urine RBC 0 SEEN Urine WBC 0 SEEN Ur Squamous Epith Cells 0-5 SEEN Urine Bacteria 0 SEEN Urine Mucus 0 SEEN Radiology Impression Abdomen/Pelvis CT 09/22/20 06:10 IMPRESSION: Persistent noncomplicated sigmoid diverticulitis although there is less inflammatory response at this time. Electronically Signed: Neal Borges MD at 9:09 EDT , Service support , Assessment & Plan Assessment/Plan (1) Acute colitis: (2) Severe sepsis: (3) Diverticulitis: (4) C. difficile colitis: PLAN: This is a 59 years old female patient presented to the emergency room because of increasing and recurrent abdominal pain, nausea, vomiting with diarrhea after she was admitted and treated for acute C. difficile colitis affecting the ascending and sigmoid colon, found to have persistent diverticulitis on CT scan abdomen as well as severe sepsis. #1 Persistent acute severe colitis/diverticulitis of the sigmoid colon/severe sepsis: On the CT scan that was done during recent admission, the inflammation was affecting the splenic flexure, descending and sigmoid colon. CT scan that was done today revealed inflammatory changes with diverticulitis of the sigmoid colon which is improving. Patient does have severe sepsis, was tachycardic in the ED, having significant upper cytosis with evidence of infection. Plan: Admit to MedSurg floor, clear liquids, IV fluids, blood culture, stool for C. difficile, stool for enteric pathogens, stool for enteric pathogens, IV morphine as needed, Zofran as needed, Compazine as needed, start IV ciprofloxacin and Flagyl, continue p.o. vancomycin, general surgery consult, infectious disease consult, repeat CBC and CMP tomorrow morning, PT OT evaluation and treatment. #2 DVT prophylaxis: Subcu Lovenox. This note was generated with [employer] software. It may contain incorrect words, spelling, and punctuation that were not noted in checking the note before signing. Charges/Coding Visit Charges Inpatient E&M: 85170 Init Hosp L3
[2020-09-22] MEDS: Lactated Ringers 1,000 ML 100 ML IV ×2 (11:00→21:58)
[2020-09-22 11:11] LABS: Lactic Acid 1.5 mmol/L (0.4-1.9)
--- NOTE | 2020-09-22 11:53 | NT.THERAPY_ITS ---
Medical Nutrition Therapy - History Nutrition Services has been consulted to:: Manage nutrient details of diet order Current diet/nutrition support order:: clear liquids - Anthropometric Measurements Height:: 5 ft 2 in Weight:: 77.292 kg Body Mass Index (BMI):: 31.1 - Relevant Labs Relevant Labs:: WBC 18.2 K/mm3 (4.4-11.0) H 09/22/20 05:30 Neut % (Auto) 81.3 % (47-70) H 09/22/20 05:30 Lymph % (Auto) 12.1 % (19-41) L 09/22/20 05:30 Absolute Neuts (auto) 14.8 X10^3/uL (2.0-7.7) H 09/22/20 05:30 BUN/Creatinine Ratio 8.5 RATIO (10-20) L 09/22/20 05:30 Glucose 116 mg/dL (74-106) H 09/22/20 05:30 Lactic Acid 2.3 mmol/L (0.4-1.9) H* 09/22/20 06:18 AST 61 U/L (15-37) H 09/22/20 05:30 ALT 82 U/L (13-56) H 09/22/20 05:30 Globulin 4.5 g/dL (2.2-4.2) H 09/22/20 05:30 Albumin/Globulin Ratio 0.7 RATIO (0.9-2.4) L 09/22/20 05:30 - Assessment Food and Nutrient Intake: PO intake to be established. UBW: 79.832 kg - wt decrease 3.2% x 1 wk (sig for malnutrition) - Nutrition Diagnosis: Intake Problem Inadequate Oral Intake Intake Problem - Etiology: related to altered GI function Intake Problem - Signs/Symptoms: as evidenced by nausea/vomiting and persistent diarrhea (up to 10x/day) and clear liquid diet. - Protein Calorie Malnutrition Evidence of Malnutrition Exists: Yes Severe Protein Calorie Malnutrition:: Acute Illness/Injury - Nutrition Intervention Nutrition Prescription: [id number] julián/day (RMR x1.2-1.3). 77-92 gm pro/day (1- 1.2 gm/kg). 2332 ml fluid/day (per ASPEN guidelines) - Food / Nutrient Delivery Interventions Summary of nutrition intervention:: Provide oral nutrition supplement - ensure clear w/ meals for increased nutrition if consumed Nutrition support ordered as / adjusted to:: Recommend advance diet as tolerated when medically able to transitional w/ goal of regular diet. Will provide ensure clear with meals for increased nutrition if consumed. Nutrition education provided?: No - MNT Monitoring Active Nutrition Patient: Yes Nutrition Status: Requires Follow Up 3-5 Days
[2020-09-22] MEDS: Ciprofloxacin 400 MG/200 ML BAG 200 MG IV ×2 (11:58→22:03)
[2020-09-22] MEDS: proCHLORPERazine 10 MG/2 ML Vial 5 MG IV ×2 (13:41→18:18)
[2020-09-22] MEDS: Morphine 2 MG/ML Syringe IV ×3 (13:41→21:59)
[2020-09-22] MEDS: metroNIDAZOLE 500 MG/100 ML BAG 100 MG IV ×2 (14:10→23:27)
--- NOTE | 2020-09-22 14:38 | PCM.CONS.GEN ---
Assessment & Plan Assessment/Plan (1) Severe sepsis: PLAN: severe sepsis due to cdiff colitis and diverticulitis - failed after discharge on po vanc and augmentin. Repeat CT shows not much change since last admit. Surgery consulted. On po vanc, cipro, iv flagyl. Will follow, thank you. (2) Diverticulitis: (3) C. difficile colitis: HPI Consult Data Date of Consult: 09/22/20 HPI Narrative HPI Narrative: BRETT MCINTYRE, is a 59 F who presented with 2 days of worsened abd pain, diarrhea, fever. Abd pain constant dull aching/cramping with intermittent lower abd stabbing. Some blood in stool. Admitted last week with cdiff and diverticulitis, sent home on po vanc and augmentin. Came back, now on cipro/flagyl/po vanc, feeling slightly better. Full ROS performed and neg except as noted above. [facility] Medical History C. difficile colitis Diverticulitis Home Medications estradiol 1 patch TOPICAL QODAY 04/12/13 [History Last Taken Unknown] naproxen 500 mg PO BID PRN #20 tab 04/12/13 [Rx Last Taken Unknown] ondansetron 4 mg PO Q8H PRN PRN #10 tab 04/12/13 [Rx Last Taken Unknown] omeprazole 20 mg PO DAILY PRN 10/15/16 [History Last Taken Unknown] acidophilus-pectin, citrus 1 tab PO TID #90 tab 09/18/20 [Rx Last Taken Unknown] amoxicillin-pot clavulanate [Augmentin] 1 tab PO BID #8 tab 09/18/20 [Rx Last Taken Unknown] vancomycin 125 mg PO Q6H #36 cap 09/18/20 [Rx Last Taken Unknown] fluconazole [Diflucan] 150 mg PO Q3D PRN 09/22/20 [History Last Taken Unknown] Allergy/AdvReac Type Severity Reaction Status Date / Time midazolam [From Versed] Allergy WENT Verified 09/22/20 05:41 COMPLETELY NUMB butorphanol tartrate AdvReac Abd Verified 09/22/20 05:41 [From Stadol] cramps/diarrhea codeine AdvReac Abd Verified 09/22/20 05:41 cramps/diarrhea Surgical History History of appendectomy History of cholecystectomy History of hysterectomy Social History household members: spouse Smoking Status: Never smoker alcohol intake: never Physical Exam Const alert and oriented x3 General Appearance: cooperative HEENT normocephalic and head/scalp atraumatic Eyes PERRL and EOMs intact bilaterally Neck supple and No nodes Resp normal air movement and clear to auscultation bilaterally Cardio regular rate and regular rhythm GI Palpation: tender Extremity no clubbing, cyanosis or edema Skin no rashes or lesions noted Neuro CN's II-XII intact bilaterally Lab / Micro Data Result Diagrams: 09/22/20 05:30 09/22/20 05:30 Labs: Laboratory Results - last 24 hr 09/22/20 09/22/20 09/22/20 05:30 05:30 06:18 WBC 18.2 H RBC 4.83 Hgb 14.4 Hct 43.5 MCV 90.1 MCH 29.8 MCHC 33.1 RDW Std Deviation 41.3 RDW Coeff of Angel 12.6 Plt Count 336 MPV 11.4 Immature Gran % (Auto) 0.400 Neut % (Auto) 81.3 H Lymph % (Auto) 12.1 L [place] % (Auto) 4.9 Eos % (Auto) 1.0 Baso % (Auto) 0.3 Absolute Neuts (auto) 14.8 H Absolute Lymphs (auto) 2.21 Nucleated RBC % 0 Sodium 139 Potassium 3.5 Chloride 107 Carbon Dioxide 23.0 Anion Gap 9 BUN 8 Creatinine 0.94 Estim Creat Clear Calc 51.60 Est GFR (MDRD) Af Amer 78 Est GFR (MDRD) Non-Af 64 BUN/Creatinine Ratio 8.5 L Glucose 116 H Lactic Acid 2.3 H* Calcium 9.2 Total Bilirubin 0.70 AST 61 H ALT 82 H Alkaline Phosphatase 89 Total Protein 7.8 Albumin 3.3 Globulin 4.5 H Albumin/Globulin Ratio 0.7 L Lipase 139 Urine Color Urine Clarity Urine pH Ur Specific [place] Urine Protein Urine Glucose (UA) Urine Ketones Urine Occult Blood Urine Nitrite Urine Bilirubin Urine Urobilinogen Ur Leukocyte Esterase Urine RBC Urine WBC Ur Squamous Epith Cells Urine Bacteria Urine Mucus 09/22/20 09/22/20 08:52 10:34 WBC RBC Hgb Hct MCV MCH MCHC RDW Std Deviation RDW Coeff of Angel Plt Count MPV Immature Gran % (Auto) Neut % (Auto) Lymph % (Auto) [place] % (Auto) Eos % (Auto) Baso % (Auto) Absolute Neuts (auto) Absolute Lymphs (auto) Nucleated RBC % Sodium Potassium Chloride Carbon Dioxide Anion Gap BUN Creatinine Estim Creat Clear Calc Est GFR (MDRD) Af Amer Est GFR (MDRD) Non-Af BUN/Creatinine Ratio Glucose Lactic Acid 1.5 Calcium Total Bilirubin AST ALT Alkaline Phosphatase Total Protein Albumin Globulin Albumin/Globulin Ratio Lipase Urine Color Yellow Urine Clarity Sl. Cloudy Urine pH 8.0 Ur Specific [place] 1.010 Urine Protein Negative Urine Glucose (UA) Normal Urine Ketones 15 H Urine Occult Blood Negative Urine Nitrite Negative Urine Bilirubin Negative Urine Urobilinogen Normal Ur Leukocyte Esterase Negative Urine RBC 0 SEEN Urine WBC 0 SEEN Ur Squamous Epith Cells 0-5 SEEN Urine Bacteria 0 SEEN Urine Mucus 0 SEEN Radiology Impression Abdomen/Pelvis CT 09/22/20 06:10 IMPRESSION: Persistent noncomplicated sigmoid diverticulitis although there is less inflammatory response at this time. Electronically Signed: Neal Borges MD at 9:09 EDT , Service support ,
[2020-09-22] MEDS: 0.9% Saline Lock 10 ML Syringe IV ×2 (18:19→21:43)
[2020-09-22] MEDS: Ondansetron 4 MG/2 ML Vial IV (21:42)
[2020-09-23] VITALS (11 sets, daily range): BP systolic 124–180; BP diastolic 72–90; PULSE 60–83; RESP 14–18; TEMP 36–36.6; O2SAT 96–100
[2020-09-23] MEDS: metroNIDAZOLE 500 MG/100 ML BAG 100 MG IV ×3 (06:23→23:42)
[2020-09-23] MEDS: proMETHazine 25 MG/ML Syringe 6.25 MG IM ×3 (06:23→18:46)
[2020-09-23] MEDS: Morphine 2 MG/ML Syringe IV ×3 (06:32→18:42)
[2020-09-23] MEDS: 0.9% Saline Lock 10 ML Syringe IV ×3 (06:33→23:02)
[2020-09-23 07:11] LABS: Absolute Lymphocyte Count 1.75 X10^3/uL (0.83-4.51); Absolute Neutrophil Count 8.4 X10^3/uL (2.0-7.7); Basophil# 0.04 X10^3/uL; Basophil% 0.4 % (0-1); Eosinophil# 0.34 X10^3/uL; Hematocrit 38.3 % (37-47); Hemoglobin 12.2 g/dL (12.0-15.0); Lymphocyte # 1.75 X10^3/ul (0.83-4.51); Lymphocyte % 15.6 % (19-41); Mean Corp Hgb Conc 31.9 g/dL (32-36); Mean Corpuscular Hgb 29.5 pg (27.0-32.0); Mean Corpuscular Volume 92.7 fL (81-99); Mean Platelet Vol. 11.2 fl (6.2-12.0); Monocyte# 0.64 X10^3/uL; Monocyte% 5.7 % (0-10); NRBC Flagged by Analyzer 0 % (0-5); Neutrophil # 8.42 X10^3/uL (2.7-7.7); Neutrophil % 74.9 % (47-70); Platelet Count 263 K/mm3 (150-450); RBC Distribution Width CV 13.1 % (11.6-14.6); RBC Distribution Width SD 43.7 fl (35.1-43.9); Red Blood Count 4.13 M/mm3 (4.2-5.4); White Blood Count 11.2 K/mm3 (4.4-11.0)
--- NOTE | 2020-09-23 07:23 | CON.PCM.SX_ITS ---
Assessment & Plan Assessment/Plan (1) C. difficile colitis: PLAN: The patient returned to the emergency room with a white count of 18. Her repeat CT showed improvement from her last CAT scan actually. The patient's main complaint was diarrhea and crampy abdominal pain while having diarrhea. The patient has only had 1 bowel movement overnight and her abdominal pain is improving. Her white count is improved to 11 from 18. The repeat C. difficile toxin is pending. At this point I believe is more than C. difficile and a diverticulitis as the CT shows constant improvement. I explained to her that I would do everything my power to avoid surgery at this point due to the superimposed C. difficile. I think an anastomosis would be high risk for leak and I would recommend continuing clear liquids and antibiotics until pain resolves. ID is on board to give antibiotic recommendations. Thomas Hassan MD Pager: [facility] [address] [place] [address], [address] [place] [address] Office: HPI Consult Data Date of Consult: 09/23/20 HPI Narrative HPI Narrative: BRETT MCINTYRE, is a 59 F who presents with continued diarrhea and abdominal pain. The patient was discharged last and reports she was feeling good and taking a soft diet. She reports that Tuesday she started feeling ill again and Tuesday she was having diarrhea all day. She presented back to the emergency room on Tuesday with abdominal pain and diarrhea. She was taking Augmentin and vancomycin at home orally. [facility] Medical History C. difficile colitis Diverticulitis Home Medications estradiol 1 patch TOPICAL QODAY 04/12/13 [History Last Taken Unknown] naproxen 500 mg PO BID PRN #20 tab 04/12/13 [Rx Last Taken Unknown] ondansetron 4 mg PO Q8H PRN PRN #10 tab 04/12/13 [Rx Last Taken Unknown] omeprazole 20 mg PO DAILY PRN 10/15/16 [History Last Taken Unknown] acidophilus-pectin, citrus 1 tab PO TID #90 tab 09/18/20 [Rx Last Taken Unknown] amoxicillin-pot clavulanate [Augmentin] 1 tab PO BID #8 tab 09/18/20 [Rx Last Taken Unknown] vancomycin 125 mg PO Q6H #36 cap 09/18/20 [Rx Last Taken Unknown] fluconazole [Diflucan] 150 mg PO Q3D PRN 09/22/20 [History Last Taken Unknown] Allergy/AdvReac Type Severity Reaction Status Date / Time midazolam [From Versed] Allergy WENT Verified 09/22/20 05:41 COMPLETELY NUMB butorphanol tartrate AdvReac Abd Verified 09/22/20 05:41 [From Stadol] cramps/diarrhea codeine AdvReac Abd Verified 09/22/20 05:41 cramps/diarrhea Surgical History History of appendectomy History of cholecystectomy History of hysterectomy Social History household members: spouse Smoking Status: Never smoker alcohol intake: never ROS Constitutional Constitutional: Denies anorexia, fatigue or fever(s) ENT HEENT: Denies abnormal hearing or dysphagia Cardiovascular Cardiovascular: Denies chest pain Respiratory/Chest Respiratory/Chest: Denies cough Gastrointestinal Gastrointestinal: Reports abdominal pain and diarrhea; Denies nausea or vomiting Musculoskeletal Musculoskeletal: Denies back pain Integumentary Integumentary: Denies new lesions Neurologic Neurologic: Denies abnormal gait Psychiatric Psychiatric: Denies anxiety Endocrine Endocrinology: Denies flushing Physical Exam Const alert and oriented x3 HEENT normocephalic Eyes PERRL Neck full ROM Resp normal respiratory effort Cardio Rate: regular rate Rhythm: regular rhythm GI soft to palpation and non-distended Palpation: tender LLQ Extremity normal to inspection Neuro CN's II-XII intact bilaterally Lab / Micro Data Result Diagrams: 09/23/20 06:56 09/22/20 05:30 Labs: Laboratory Results - last 24 hr 09/22/20 09/22/20 09/23/20 08:52 10:34 06:56 WBC 11.2 H RBC 4.13 L Hgb 12.2 Hct 38.3 MCV 92.7 MCH 29.5 MCHC 31.9 L RDW Std Deviation 43.7 RDW Coeff of Angel 13.1 Plt Count 263 MPV 11.2 Immature Gran % (Auto) 0.400 Neut % (Auto) 74.9 H Lymph % (Auto) 15.6 L [place] % (Auto) 5.7 Eos % (Auto) 3.0 Baso % (Auto) 0.4 Absolute Neuts (auto) 8.4 H Absolute Lymphs (auto) 1.75 Nucleated RBC % 0 Lactic Acid 1.5 Urine Color Yellow Urine Clarity Sl. Cloudy Urine pH 8.0 Ur Specific [place] 1.010 Urine Protein Negative Urine Glucose (UA) Normal Urine Ketones 15 H Urine Occult Blood Negative Urine Nitrite Negative Urine Bilirubin Negative Urine Urobilinogen Normal Ur Leukocyte Esterase Negative Urine RBC 0 SEEN Urine WBC 0 SEEN Ur Squamous Epith Cells 0-5 SEEN Urine Bacteria 0 SEEN Urine Mucus 0 SEEN Radiology Impression Abdomen/Pelvis CT 09/22/20 06:10 IMPRESSION: Persistent noncomplicated sigmoid diverticulitis although there is less inflammatory response at this time. Electronically Signed: Neal Borges MD at 9:09 EDT , Service support ,
[2020-09-23 07:38] LABS: ALB/GLOB Ratio 0.7 RATIO (0.9-2.4); AST(SGOT) 33 U/L (15-37); Alanine Aminotransfer ALT/SGPT 60 U/L (13-56); Albumin, Serum 2.7 g/dL (3.2-5.0); Alkaline Phosphatase 77 U/L (45-117); Anion Gap 10 (5-15); BUN 6 mg/dL (7-18); BUN/Creat Ratio 8.4 RATIO (10-20); Calcium,Total 8.5 mg/dL (8.5-10.1); Chloride 107 mmol/L (98-107); Creatinine, Serum 0.72 mg/dL (0.55-1.02); EST Glomerular Filtration Rate 88 mL/min (>60); Est Glom Filt Rate - Afr Amer 107 mL/min (>60); Estimated Creatinine Clearance 67.36 ml/min; Globulin 3.7 g/dL (2.2-4.2); Glucose 101 mg/dL (74-106); Potassium 3.3 mmol/L (3.5-5.1); Protein, Total 6.4 g/dL (6.4-8.2); Sodium Level 141 mmol/L (136-145)
--- NOTE | 2020-09-23 08:14 | PCM.PN.HOSP ---
Subjective Subjective Chief complaint: Follow-up after admission for persistent acute severe colitis/diverticulitis due to C. difficile infection as well as severe sepsis. Patient seen and examined. No acute events overnight. Today, she is feeling little bit better. Still complaining of abdominal pain but minimally improved. Still having diarrhea, no blood in the stool. Denies fever chills. Her vital signs are stable. Objective Data Objective Data Vital Signs: Vital Signs Temp Pulse Resp BP Pulse Ox 97.2 F L 60 16 124/72 H 96 09/23/20 03:18 09/23/20 07:50 09/23/20 03:18 09/23/20 03:18 09/23/20 07:32 Oxygen Delivery Method Room Air Weight: 170 lb 6.4 oz Body Mass Index (BMI) 31.1 Intake & Output: Intake and Output for Last 24 Hours 09/21/20 09/22/20 09/23/20 23:59 23:59 23:59 Intake Total 993.33 / 993.33 Balance 993.33 / 993.33 Lab / Micro Data Result Diagrams: 09/23/20 06:56 09/23/20 06:56 Labs: Laboratory Results - last 24 hr 09/22/20 09/22/20 09/23/20 08:52 10:34 06:56 WBC 11.2 H RBC 4.13 L Hgb 12.2 Hct 38.3 MCV 92.7 MCH 29.5 MCHC 31.9 L RDW Std Deviation 43.7 RDW Coeff of Angel 13.1 Plt Count 263 MPV 11.2 Immature Gran % (Auto) 0.400 Neut % (Auto) 74.9 H Lymph % (Auto) 15.6 L [place] % (Auto) 5.7 Eos % (Auto) 3.0 Baso % (Auto) 0.4 Absolute Neuts (auto) 8.4 H Absolute Lymphs (auto) 1.75 Nucleated RBC % 0 Sodium Potassium Chloride Carbon Dioxide Anion Gap BUN Creatinine Estim Creat Clear Calc Est GFR (MDRD) Af Amer Est GFR (MDRD) Non-Af BUN/Creatinine Ratio Glucose Lactic Acid 1.5 Calcium Total Bilirubin AST ALT Alkaline Phosphatase Total Protein Albumin Globulin Albumin/Globulin Ratio Urine Color Yellow Urine Clarity Sl. Cloudy Urine pH 8.0 Ur Specific [place] 1.010 Urine Protein Negative Urine Glucose (UA) Normal Urine Ketones 15 H Urine Occult Blood Negative Urine Nitrite Negative Urine Bilirubin Negative Urine Urobilinogen Normal Ur Leukocyte Esterase Negative Urine RBC 0 SEEN Urine WBC 0 SEEN Ur Squamous Epith Cells 0-5 SEEN Urine Bacteria 0 SEEN Urine Mucus 0 SEEN 09/23/20 06:56 WBC RBC Hgb Hct MCV MCH MCHC RDW Std Deviation RDW Coeff of Angel Plt Count MPV Immature Gran % (Auto) Neut % (Auto) Lymph % (Auto) [place] % (Auto) Eos % (Auto) Baso % (Auto) Absolute Neuts (auto) Absolute Lymphs (auto) Nucleated RBC % Sodium 141 Potassium 3.3 L Chloride 107 Carbon Dioxide 24.0 Anion Gap 10 BUN 6 L Creatinine 0.72 Estim Creat Clear Calc 67.36 Est GFR (MDRD) Af Amer 107 Est GFR (MDRD) Non-Af 88 BUN/Creatinine Ratio 8.4 L Glucose 101 Lactic Acid Calcium 8.5 Total Bilirubin 0.50 AST 33 ALT 60 H Alkaline Phosphatase 77 Total Protein 6.4 Albumin 2.7 L Globulin 3.7 Albumin/Globulin Ratio 0.7 L Urine Color Urine Clarity Urine pH Ur Specific [place] Urine Protein Urine Glucose (UA) Urine Ketones Urine Occult Blood Urine Nitrite Urine Bilirubin Urine Urobilinogen Ur Leukocyte Esterase Urine RBC Urine WBC Ur Squamous Epith Cells Urine Bacteria Urine Mucus Radiography Diagnostic Testing: Radiology Impression Abdomen/Pelvis CT 09/22/20 06:10 IMPRESSION: Persistent noncomplicated sigmoid diverticulitis although there is less inflammatory response at this time. Electronically Signed: Neal Borges MD at 9:09 EDT , Service support , Physical Exam Const alert, oriented x3, no apparent distress and no limitations Constitutional Narrative: She is in mild to moderate pain. HEENT normocephalic, head/scalp atraumatic and moist oral mucous membranes Eyes PERRL, EOMs intact bilaterally, conjunctivae normal and no scleral icterus Neck no lymphadenopathy, supple, no meningeal signs, no JVD and no carotid bruits Resp normal respiratory effort, normal air movement and clear to auscultation bilaterally Auscultation: Negative for crackles, rales, rhonchi or wheezes Cardio regular rate, regular rhythm, S1 normal heart sound, S2 normal heart sound, no murmurs and no JVD Peripheral Pulses: pulses 2+ throughout GI Negative for hepatosplenomegaly GI Narrative: Mild generalized tenderness, guarding, no rigidity. Auscultation: normoactive bowel sounds Palpation: tender and guarding Extremity normal to inspection, full ROM and no clubbing, cyanosis or edema Skin no rashes or lesions noted, no wounds and no petechiae Neuro oriented x3, CN's II-XII intact bilaterally and moves all extremities Sensorium / Orientation: alert Speech: speech normal Motor Exam: strength 5/5 throughout Psych mental status grossly normal, affect normal and denies hallucinations Assessment & Plan Assessment/Plan (1) Acute colitis: (2) Severe sepsis: (3) Diverticulitis: (4) C. difficile colitis: PLAN: This is a 59 years old female patient presented to the emergency room because of increasing and recurrent abdominal pain, nausea, vomiting with diarrhea after she was admitted and treated for acute C. difficile colitis affecting the ascending and sigmoid colon, found to have persistent diverticulitis on CT scan abdomen as well as severe sepsis. #1 Persistent acute severe colitis/diverticulitis of the sigmoid colon due to C. difficile infection/severe sepsis: She is on IV Flagyl and ciprofloxacin as well as p.o. vancomycin. She has been afebrile, WBC is trending down. Still symptomatic with abdominal pain and diarrhea but with no improvement. Her vital signs are stable, afebrile. General surgery consulted, no plans for surgical treatment at this time. Infectious disease on the case, agreed with IV ciprofloxacin and Flagyl as well as p.o. vancomycin. Plan to continue same treatment, repeat CBC and BMP tomorrow morning. #2 hypokalemia: Likely due to diarrhea. To replace potassium with IV potassium chloride, repeat BMP tomorrow morning. #3 DVT prophylaxis: Subcu Lovenox. This note was generated with [employer] ([employer] dictation software. It may contain incorrect words, spelling, and punctuation that were not noted in checking the note before signing. Charges/Coding Visit Charges Inpatient E&M: 73180 Subs Hosp L2
[2020-09-23] MEDS: Ciprofloxacin 400 MG/200 ML BAG 200 MG IV ×2 (09:42→22:17)
--- NOTE | 2020-09-23 10:10 | PCM.PN.ID ---
Physical Exam Narrative Pain and diarrhea slightly improved, no fever Const alert General Appearance: cooperative Resp clear to auscultation bilaterally Cardio regular rate and regular rhythm GI normal to inspection, nondistended, normoactive bowel sounds GI Narrative: mild soreness Skin no rashes or lesions noted ID ID: Route of nutrition/ use of supplements: [] Nutritional Intake: [] IV Site: [] Guillory Catheter: [] Assessment & Plan Assessment/Plan (1) Severe sepsis: PLAN: severe sepsis due to cdiff colitis and diverticulitis - failed after discharge on po vanc and augmentin. Repeat CT shows not much change since last admit. Surgery consulted, Dr. Hassan following. On po vanc, cipro, iv flagyl. Sx improved, now wbc nearly back to normal. Will follow (2) Diverticulitis: (3) C. difficile colitis:
[2020-09-23] MEDS: Potassium Chloride 10mEq/100mL 10 MEQ/100 ML IV.SOLN. 100 MEQ IV BOLUS ×3 (11:24→13:46)
[2020-09-23] MEDS: Lactated Ringers 1,000 ML 100 ML IV (12:20)
--- NOTE | 2020-09-23 15:34 | CASEMGMT ---
Chart review: patient was admitted 09/12-09/18 for abdominal pain, c-diff colitis. Patient was discharged home with po atbs. Patient had follow-up appt schedule for 09/25 with PCP. Patient states she filled medications without issues and was taking them as prescribed. Patient returned 09/22 for worsening abdominal pain, C-diff, diverticulitis. Patient continues on ATBs. Denies needs at this time. Patient lives with and is independent at home. Disposition Plan: Patient to discharge home with family support and follow-up plans in place.
[2020-09-23] MEDS: hydrALAZINE 20 MG/ML Vial 5 MG IV (23:03)
[2020-09-24] MEDS: Morphine 2 MG/ML Syringe IV ×4 (00:45→19:51)
[2020-09-24] MEDS: proMETHazine 25 MG/ML Syringe 6.25 MG IM ×4 (00:47→19:55)
[2020-09-24] MEDS: Lactated Ringers 1,000 ML 100 ML IV (00:52)
[2020-09-24 04:10] VITALS: BP 134/68; PULSE 79; RESP 18; TEMP 36.6; O2SAT 97
[2020-09-24 06:43] LABS: Absolute Neutrophil Count 3.8 X10^3/uL (2.0-7.7); Basophil# 0.07 X10^3/uL; Eosinophil# 0.59 X10^3/uL; Eosinophils% 8.6 % (0-5); Hematocrit 37.2 % (37-47); Hemoglobin 12.2 g/dL (12.0-15.0); Lymphocyte % 24.9 % (19-41); Mean Corp Hgb Conc 32.8 g/dL (32-36); Mean Corpuscular Hgb 30.1 pg (27.0-32.0); Mean Corpuscular Volume 91.9 fL (81-99); Mean Platelet Vol. 11.4 fl (6.2-12.0); Monocyte# 0.63 X10^3/uL; Monocyte% 9.2 % (0-10); NRBC Flagged by Analyzer 0 % (0-5); Neutrophil # 3.83 X10^3/uL (2.7-7.7); Platelet Count 252 K/mm3 (150-450); RBC Distribution Width CV 13.2 % (11.6-14.6); RBC Distribution Width SD 43.9 fl (35.1-43.9); Red Blood Count 4.05 M/mm3 (4.2-5.4); White Blood Count 6.8 K/mm3 (4.4-11.0)
[2020-09-24] MEDS: metroNIDAZOLE 500 MG/100 ML BAG 100 MG IV ×3 (06:50→22:04)
[2020-09-24 07:12] VITALS: O2SAT 95
[2020-09-24 07:20] LABS: Anion Gap 7 (5-15); BUN 5 mg/dL (7-18); BUN/Creat Ratio 8.1 RATIO (10-20); Calcium,Total 8.3 mg/dL (8.5-10.1); Chloride 110 mmol/L (98-107); Creatinine, Serum 0.62 mg/dL (0.55-1.02); EST Glomerular Filtration Rate 105 mL/min (>60); Est Glom Filt Rate - Afr Amer 127 mL/min (>60); Estimated Creatinine Clearance 78.23 ml/min; Glucose 85 mg/dL (74-106); Potassium 3.5 mmol/L (3.5-5.1); Sodium Level 142 mmol/L (136-145)
--- NOTE | 2020-09-24 07:22 | PN.SURG_ITS ---
Subjective Subjective The patient reports that she had 8 bouts of diarrhea yesterday. Her abdominal pain is improving and she is not having any nausea or vomiting. Objective Data Objective Data Vital Signs: Vital Signs Temp Pulse Resp BP Pulse Ox 98 F 79 18 134/68 H 97 09/24/20 04:10 09/24/20 04:10 09/24/20 04:10 09/24/20 04:10 09/24/20 04:10 Oxygen Delivery Method Room Air Weight: 170 lb 6.4 oz Body Mass Index (BMI) 31.1 Intake & Output: Intake and Output for Last 24 Hours 09/22/20 09/23/20 09/24/20 23:59 23:59 23:59 Intake Total 3623.58 / 3723.58 1006.66 / 1006.66 Balance 3623.58 / 3723.58 1006.66 / 1006.66 Lab / Micro Data Result Diagrams: 09/24/20 06:30 09/24/20 06:30 Labs: Laboratory Results - last 24 hr 09/23/20 09/24/20 09/24/20 06:56 06:30 06:30 WBC 6.8 RBC 4.05 L Hgb 12.2 Hct 37.2 MCV 91.9 MCH 30.1 MCHC 32.8 RDW Std Deviation 43.9 RDW Coeff of Angel 13.2 Plt Count 252 MPV 11.4 Immature Gran % (Auto) 0.300 Neut % (Auto) 56.0 Lymph % (Auto) 24.9 [place] % (Auto) 9.2 Eos % (Auto) 8.6 H Baso % (Auto) 1.0 Absolute Neuts (auto) 3.8 Absolute Lymphs (auto) 1.70 Nucleated RBC % 0 Sodium 141 142 Potassium 3.3 L 3.5 Chloride 107 110 H Carbon Dioxide 24.0 25.0 Anion Gap 10 7 BUN 6 L 5 L Creatinine 0.72 0.62 Estim Creat Clear Calc 67.36 78.23 Est GFR (MDRD) Af Amer 107 127 Est GFR (MDRD) Non-Af 88 105 BUN/Creatinine Ratio 8.4 L 8.1 L Glucose 101 85 Calcium 8.5 8.3 L Total Bilirubin 0.50 AST 33 ALT 60 H Alkaline Phosphatase 77 Total Protein 6.4 Albumin 2.7 L Globulin 3.7 Albumin/Globulin Ratio 0.7 L Micro: Microbiology 09/22/20 Unknown Stool C. difficile DNA Amplification - Final 09/22/20 23:44 Stool Enteric Bacteriology - Final Physical Exam Const oriented x3 and no apparent distress Resp normal respiratory effort Cardio regular rate and regular rhythm GI soft to palpation Palpation: tender LLQ Assessment & Plan Assessment/Plan (1) C. difficile colitis: PLAN: The patient CT shows improvement and her white count is now normal. The patient is having ongoing diarrhea but there is no blood in it. Patient is still having some mild left lower quadrant pain so we will continue clear liquids for another 24 hours and hopefully be able to advance her diet tomorrow. Antibiotics per ID. Continue nonoperative management. Thomas Hassan MD Pager: [facility] [address] [place] [address], [address] [place] [address] Office:
--- NOTE | 2020-09-24 08:20 | PCM.PN.HOSP ---
Subjective Subjective Chief complaint: Follow-up after admission for persistent acute severe colitis/diverticulitis due to C. difficile infection and also found to have severe sepsis. Patient seen and examined. No acute events overnight. Patient still having diarrhea but improved, no blood in the stool. Still complaining of lower abdominal pain but also has been improving. No fever or chills. Arrival, she reported mild improvement of her symptoms. Her vital signs are stable. Objective Data Objective Data Vital Signs: Vital Signs Temp Pulse Resp BP Pulse Ox 98 F 79 18 134/68 H 95 09/24/20 04:10 09/24/20 04:10 09/24/20 04:10 09/24/20 04:10 09/24/20 07:12 Oxygen Delivery Method Room Air Weight: 170 lb 6.4 oz Body Mass Index (BMI) 31.1 Intake & Output: Intake and Output for Last 24 Hours 09/22/20 09/23/20 09/24/20 23:59 23:59 23:59 Intake Total 3623.58 / 3723.58 1006.66 / 1006.66 Balance 3623.58 / 3723.58 1006.66 / 1006.66 Lab / Micro Data Result Diagrams: 09/24/20 06:30 09/24/20 06:30 Labs: Laboratory Results - last 24 hr 09/24/20 09/24/20 06:30 06:30 WBC 6.8 RBC 4.05 L Hgb 12.2 Hct 37.2 MCV 91.9 MCH 30.1 MCHC 32.8 RDW Std Deviation 43.9 RDW Coeff of Angel 13.2 Plt Count 252 MPV 11.4 Immature Gran % (Auto) 0.300 Neut % (Auto) 56.0 Lymph % (Auto) 24.9 Phelps % (Auto) 9.2 Eos % (Auto) 8.6 H Baso % (Auto) 1.0 Absolute Neuts (auto) 3.8 Absolute Lymphs (auto) 1.70 Nucleated RBC % 0 Sodium 142 Potassium 3.5 Chloride 110 H Carbon Dioxide 25.0 Anion Gap 7 BUN 5 L Creatinine 0.62 Estim Creat Clear Calc 78.23 Est GFR (MDRD) Af Amer 127 Est GFR (MDRD) Non-Af 105 BUN/Creatinine Ratio 8.1 L Glucose 85 Calcium 8.3 L Micro: Microbiology 09/22/20 Unknown Stool C. difficile DNA Amplification - Final 09/22/20 23:44 Stool Enteric Bacteriology - Final Physical Exam Const alert, oriented x3, no apparent distress and no limitations Constitutional Narrative: She is in mild to moderate pain. General Appearance: cooperative, comfortable and well kempt HEENT normocephalic, head/scalp atraumatic and moist oral mucous membranes Eyes PERRL, EOMs intact bilaterally, conjunctivae normal and no scleral icterus General Eye: normal appearance of both eyes Periorbital: periorbital findings normal Neck no lymphadenopathy, supple, no meningeal signs, no JVD and no carotid bruits General: trachea midline Thyroid: thyroid normal Resp normal respiratory effort, normal air movement and clear to auscultation bilaterally Auscultation: Negative for crackles, rales, rhonchi or wheezes Cardio regular rate, regular rhythm, S1 normal heart sound, S2 normal heart sound, no murmurs and no JVD Peripheral Pulses: pulses 2+ throughout GI normal to inspection, nondistended, normoactive bowel sounds; Negative for hepatosplenomegaly GI Narrative: Minimal lower abdominal tenderness, no guarding or rigidity. Auscultation: normoactive bowel sounds Extremity normal to inspection, full ROM and no clubbing, cyanosis or edema Skin no rashes or lesions noted, no wounds and no petechiae Neuro oriented x3, CN's II-XII intact bilaterally and moves all extremities Sensorium / Orientation: alert Speech: speech normal Motor Exam: strength 5/5 throughout Psych mental status grossly normal, affect normal and denies hallucinations Assessment & Plan Assessment/Plan (1) Acute colitis: (2) Severe sepsis: (3) Diverticulitis: (4) C. difficile colitis: PLAN: This is a 59 years old female patient presented to the emergency room because of increasing and recurrent abdominal pain, nausea, vomiting with diarrhea after she was admitted and treated for acute C. difficile colitis affecting the ascending and sigmoid colon, found to have persistent diverticulitis on CT scan abdomen as well as severe sepsis. #1 Persistent acute severe colitis/diverticulitis of the sigmoid colon due to C. difficile infection/severe sepsis: Remained on IV Flagyl and ciprofloxacin as well as p.o. vancomycin. WBC is back to normal, has been afebrile. Symptoms started to improve including diarrhea and abdominal pain. Stool for C. difficile came back negative. Stool for enteric pathogens came back negative as well. Stool for Giardia lamblia still pending. Plan to continue same treatment, advance diet as tolerated. #2 hypokalemia: Likely due to diarrhea. Potassium replaced and corrected. #3 DVT prophylaxis: Subcu Lovenox. This note was generated with [employer] dictation software. It may contain incorrect words, spelling, and punctuation that were not noted in checking the note before signing. Charges/Coding Visit Charges Inpatient E&M: 72274 Subs Hosp L2
[2020-09-24 10:12] VITALS: BP 147/81; PULSE 69; RESP 12; TEMP 36.7; O2SAT 100
[2020-09-24] MEDS: Ciprofloxacin 400 MG/200 ML BAG 200 MG IV ×2 (10:38→23:18)
[2020-09-24] MEDS: 0.9% Saline Lock 10 ML Syringe IV ×4 (13:45→21:23)
--- NOTE | 2020-09-24 13:49 | PCM.PN.ID ---
Physical Exam Narrative Feeling better, abd pain and diarrhea improved, still some nausea. Const alert and no apparent distress General Appearance: cooperative Resp normal air movement and clear to auscultation bilaterally Cardio regular rate and regular rhythm GI normal to inspection, nondistended, normoactive bowel sounds Extremity no clubbing, cyanosis or edema Skin no rashes or lesions noted ID ID: Route of nutrition/ use of supplements: [] Nutritional Intake: [] IV Site: [] Guillory Catheter: [] Assessment & Plan Assessment/Plan (1) Severe sepsis: PLAN: severe sepsis due to cdiff colitis and diverticulitis - failed after discharge on po vanc and augmentin. Repeat CT shows not much change since last admit. Surgery consulted, Dr. Hassan following. On po vanc, cipro, iv flagyl. Sx improved, now wbc back to normal. Diarrhea better today. May be able to stop cipro tomorrow. Will follow (2) Diverticulitis: (3) C. difficile colitis:
[2020-09-24 13:50] VITALS: BP 151/92; PULSE 88; RESP 16; TEMP 36.9; O2SAT 98
[2020-09-24 18:20] VITALS: BP 145/87; PULSE 82; RESP 14; TEMP 36.8; O2SAT 100
[2020-09-25] VITALS: BP 157/73; PULSE 71; RESP 16; TEMP 36.7; O2SAT 99
[2020-09-25] MEDS: proMETHazine 25 MG/ML Syringe 6.25 MG IM ×4 (01:56→20:30)
[2020-09-25] MEDS: Morphine 2 MG/ML Syringe IV ×4 (01:56→20:19)
[2020-09-25] MEDS: 0.9% Saline Lock 10 ML Syringe IV ×3 (01:56→20:19)
[2020-09-25] MEDS: metroNIDAZOLE 500 MG/100 ML BAG 100 MG IV (06:05)
--- NOTE | 2020-09-25 07:26 | PN.SURG_ITS ---
Subjective Subjective Patient reports she is feeling better and she feels like she is finally turning the corner. She says her abdominal pain is almost gone. No nausea or vomiting. Objective Data Objective Data Vital Signs: Vital Signs Temp Pulse Resp BP Pulse Ox 98.1 F 71 16 157/73 H 99 09/25/20 00:00 09/25/20 00:00 09/25/20 00:00 09/25/20 00:00 09/25/20 00:00 Oxygen Delivery Method Room Air Weight: 170 lb 6.4 oz Body Mass Index (BMI) 31.1 Intake & Output: Intake and Output for Last 24 Hours 09/23/20 09/24/20 09/25/20 23:59 23:59 23:59 Intake Total 3623.58 / 3723.58 2038.33 / 2038.33 300 / 300 Output Total 0 / 0 Balance 3623.58 / 3723.58 2038.33 / 2038.33 300 / 300 Lab / Micro Data Result Diagrams: 09/24/20 06:30 09/24/20 06:30 Micro: Microbiology 09/22/20 12:20 Blood Culture (Wb) - Right Forearm Blood Culture - Preliminary No growth in 48 hours. 09/22/20 12:15 Blood Culture (Wb) - Anticubital Right Blood Culture - Preliminary No growth in 48 hours. 09/22/20 Unknown Stool C. difficile DNA Amplification - Final 09/22/20 23:44 Stool Enteric Bacteriology - Final Physical Exam Const oriented x3 and no apparent distress Resp normal respiratory effort Cardio regular rate and regular rhythm GI soft to palpation Palpation: tender LLQ Assessment & Plan Assessment/Plan (1) C. difficile colitis: PLAN: The patient reports improvement. I will advance her to full liquid diet. Continue antibiotics. ID plans to stop Cipro today which I believe is appropriate as her white count was normal yesterday. Once her pain is fully resolved I will try a regular diet and make sure she is tolerating it before discharge. Thomas Hassan MD Pager: [facility] [address] [place] [address], [address] [place] [address] Office:
[2020-09-25 07:41] VITALS: BP 144/81; PULSE 81; RESP 16; TEMP 36.6; O2SAT 96
--- NOTE | 2020-09-25 08:31 | PCM.PN.HOSP ---
Subjective Subjective Chief complaint: Follow-up after admission for persistent acute severe colitis/diverticulitis due to C. difficile infection and also found to have severe sepsis. Patient seen and examined. No acute events overnight. This morning, patient is feeling better. No more diarrhea today. Abdominal pain continue to improve. Denied nausea or vomiting. Denied fever or chills. Her vital signs are stable. Objective Data Objective Data Vital Signs: Vital Signs Temp Pulse Resp BP Pulse Ox 97.8 F 81 16 144/81 H 96 09/25/20 07:41 09/25/20 07:41 09/25/20 07:41 09/25/20 07:41 09/25/20 07:41 Oxygen Delivery Method Room Air Weight: 170 lb 6.4 oz Body Mass Index (BMI) 31.1 Intake & Output: Intake and Output for Last 24 Hours 09/23/20 09/24/20 09/25/20 23:59 23:59 23:59 Intake Total 3623.58 / 3723.58 2038.33 / 2038.33 300 / 300 Output Total 0 / 0 Balance 3623.58 / 3723.58 2038.33 / 2038.33 300 / 300 Lab / Micro Data Result Diagrams: 09/24/20 06:30 09/24/20 06:30 Micro: Microbiology 09/22/20 12:20 Blood Culture (Wb) - Right Forearm Blood Culture - Preliminary No growth in 48 hours. 09/22/20 12:15 Blood Culture (Wb) - Anticubital Right Blood Culture - Preliminary No growth in 48 hours. 09/22/20 Unknown Stool C. difficile DNA Amplification - Final 09/22/20 23:44 Stool Enteric Bacteriology - Final Physical Exam Const alert, oriented x3, no apparent distress and no limitations Constitutional Narrative: She is in mild to moderate pain. General Appearance: cooperative, comfortable and well kempt HEENT normocephalic, head/scalp atraumatic and moist oral mucous membranes Eyes PERRL, EOMs intact bilaterally, conjunctivae normal and no scleral icterus General Eye: normal appearance of both eyes Periorbital: periorbital findings normal Neck no lymphadenopathy, supple, no meningeal signs, no JVD and no carotid bruits General: trachea midline Thyroid: thyroid normal Resp normal respiratory effort, normal air movement and clear to auscultation bilaterally Auscultation: Negative for crackles, rales, rhonchi or wheezes Cardio regular rate, regular rhythm, S1 normal heart sound, S2 normal heart sound, no murmurs and no JVD Peripheral Pulses: pulses 2+ throughout GI normal to inspection, nondistended, normoactive bowel sounds; Negative for hepatosplenomegaly GI Narrative: Minimal tenderness. Auscultation: normoactive bowel sounds Palpation: tender Extremity normal to inspection, full ROM and no clubbing, cyanosis or edema Skin no rashes or lesions noted, no wounds and no petechiae Neuro oriented x3, CN's II-XII intact bilaterally and moves all extremities Sensorium / Orientation: alert Speech: speech normal Motor Exam: strength 5/5 throughout Psych mental status grossly normal, affect normal and denies hallucinations Assessment & Plan Assessment/Plan (1) Acute colitis: (2) Severe sepsis: (3) Diverticulitis: (4) C. difficile colitis: PLAN: This is a 59 years old female patient presented to the emergency room because of increasing and recurrent abdominal pain, nausea, vomiting with diarrhea after she was admitted and treated for acute C. difficile colitis affecting the ascending and sigmoid colon, found to have persistent diverticulitis on CT scan abdomen as well as severe sepsis. #1 Persistent acute severe colitis/diverticulitis of the sigmoid colon due to C. difficile infection/severe sepsis: She is on day 4 of IV Flagyl and ciprofloxacin as well as p.o. vancomycin. WBC is back to normal, has been afebrile. Abdominal pain and diarrhea continue to improve, has been afebrile. Stool for C. difficile came back negative. Stool for enteric pathogens came back negative as well. Stool for Giardia lamblia still pending. Plan to advance diet to full liquid diet. #2 hypokalemia: Likely due to diarrhea. Potassium replaced and corrected. #3 DVT prophylaxis: Subcu Lovenox. This note was generated with [employer] dictation software. It may contain incorrect words, spelling, and punctuation that were not noted in checking the note before signing. Charges/Coding Visit Charges Inpatient E&M: 70235 Subs Hosp L2
[2020-09-25 08:45] LABS: Giardia Lamblia, Stool EIA Negative (Negative)
--- NOTE | 2020-09-25 09:30 | PCM.PN.ID ---
Physical Exam Narrative Feeling better. No diarrhea today, abd pain controlled with morphine, no fever. Some nausea. Const alert General Appearance: cooperative Resp normal air movement and clear to auscultation bilaterally Cardio regular rate and regular rhythm GI normal to inspection, nondistended, normoactive bowel sounds Skin no rashes or lesions noted ID ID: Route of nutrition/ use of supplements: [] Nutritional Intake: [] IV Site: [] Guillory Catheter: [] Assessment & Plan Assessment/Plan (1) Severe sepsis: PLAN: severe sepsis due to cdiff colitis and diverticulitis - failed after discharge on po vanc and augmentin. Repeat CT shows not much change since last admit. Surgery consulted, Dr. Hassan following. On po vanc, cipro, iv flagyl. Sx improved, now wbc back to normal. Diarrhea resolved this AM. Will stop cipro/flagyl today. Plan on po vanc for 10 more days, stop date 10/05/20. Likely discharge tomorrow if she's able to tolerate diet. Will follow (2) Diverticulitis: (3) C. difficile colitis:
[2020-09-25 13:47] VITALS: BP 139/73; PULSE 67; RESP 16; TEMP 36.6; O2SAT 98
[2020-09-25 20:17] VITALS: BP 141/83; PULSE 94; RESP 18; TEMP 36.6; O2SAT 98
[2020-09-26 03:06] VITALS: BP 150/95; PULSE 96; RESP 18; TEMP 36.8; O2SAT 97
[2020-09-26] MEDS: Morphine 2 MG/ML Syringe IV (03:07)
[2020-09-26] MEDS: 0.9% Saline Lock 10 ML Syringe IV ×2 (03:08→21:21)
[2020-09-26] MEDS: proMETHazine 25 MG/ML Syringe 6.25 MG IM (03:11)
--- NOTE | 2020-09-26 07:00 | PN.SURG_ITS ---
Subjective Subjective Patient reports she tried a full liquid diet yesterday and had 2 bowel movements immediately after eating and these were diarrhea. She reports that she was also having pain with the diarrhea requiring narcotics. Objective Data Objective Data Vital Signs: Vital Signs Temp Pulse Resp BP Pulse Ox 98.3 F 96 18 150/95 H 97 09/26/20 03:06 09/26/20 03:06 09/26/20 03:06 09/26/20 03:06 09/26/20 03:06 Oxygen Delivery Method Room Air Weight: 170 lb 6.4 oz Body Mass Index (BMI) 31.1 Intake & Output: Intake and Output for Last 24 Hours 09/24/20 09/25/20 09/26/20 23:59 23:59 23:59 Intake Total 2038.33 / 2038.33 847.5 / 847.5 69.75 / 69.75 Output Total 0 / 0 Balance 2038.33 / 2038.33 847.5 / 847.5 69.75 / 69.75 Lab / Micro Data Result Diagrams: 09/24/20 06:30 09/24/20 06:30 Labs: Laboratory Results - last 24 hr 09/23/20 Unknown Stl Giardia Antigen Negative Micro: Microbiology 09/22/20 12:20 Blood Culture (Wb) - Right Forearm Blood Culture - Preliminary No growth in 48 hours. 09/22/20 12:15 Blood Culture (Wb) - Anticubital Right Blood Culture - Preliminary No growth in 48 hours. 09/22/20 Unknown Stool C. difficile DNA Amplification - Final 09/22/20 23:44 Stool Enteric Bacteriology - Final Physical Exam Const oriented x3 and no apparent distress GI Palpation: tender LLQ Assessment & Plan Assessment/Plan (1) C. difficile colitis: PLAN: Patient is still having diarrhea with pain with a full liquid diet. I am unable to advance her diet while she is having pain and diarrhea and requ iring narcotics. I advised the patient that she would not be able to be discharged until she is off of narcotics as well. If she is unable to stop narcotic use and tolerated diet I would recommend sigmoid colectomy next week. I will give her through the weekend to see if there is any improvement or recovery. I am unsure why she is still having all of this pain and diarrhea as her repeat C. difficile was negative and her CT shows improvement and she has a normal white count. Thomas Hassan MD Pager: [facility] [address] [place] [address], [address] [place] [address] Office:
--- NOTE | 2020-09-26 08:10 | PCM.PN.HOSP ---
Subjective Subjective Chief complaint: Follow-up after admission for persistent acute severe colitis/diverticulitis due to C. difficile infection and severe sepsis. Patient seen and examined. No acute events overnight. She is still complaining of abdominal pain, lower abdominal pain, 5 out of 10 in severity, getting worse when she goes for diarrhea. No more nausea or vomiting. Still having diarrhea but improving. Her vital signs are stable. Objective Data Objective Data Vital Signs: Vital Signs Temp Pulse Resp BP Pulse Ox 98.3 F 96 18 150/95 H 97 09/26/20 03:06 09/26/20 03:06 09/26/20 03:06 09/26/20 03:06 09/26/20 03:06 Oxygen Delivery Method Room Air Weight: 170 lb 6.4 oz Body Mass Index (BMI) 31.1 Intake & Output: Intake and Output for Last 24 Hours 09/24/20 09/25/20 09/26/20 23:59 23:59 23:59 Intake Total 2038.33 / 2038.33 847.5 / 847.5 69.75 / 69.75 Output Total 0 / 0 Balance 2038.33 / 2038.33 847.5 / 847.5 69.75 / 69.75 Lab / Micro Data Result Diagrams: 09/24/20 06:30 09/24/20 06:30 Labs: Laboratory Results - last 24 hr 09/23/20 Unknown Stl Giardia Antigen Negative Micro: Microbiology 09/22/20 12:20 Blood Culture (Wb) - Right Forearm Blood Culture - Preliminary No growth in 48 hours. 09/22/20 12:15 Blood Culture (Wb) - Anticubital Right Blood Culture - Preliminary No growth in 48 hours. 09/22/20 Unknown Stool C. difficile DNA Amplification - Final 09/22/20 23:44 Stool Enteric Bacteriology - Final Physical Exam Const alert, oriented x3, no apparent distress and no limitations Constitutional Narrative: She is in mild to moderate pain. General Appearance: cooperative, comfortable and well kempt HEENT normocephalic, head/scalp atraumatic and moist oral mucous membranes Eyes PERRL, EOMs intact bilaterally, conjunctivae normal and no scleral icterus General Eye: normal appearance of both eyes Periorbital: periorbital findings normal Neck no lymphadenopathy, supple, no meningeal signs, no JVD and no carotid bruits General: trachea midline Thyroid: thyroid normal Resp normal respiratory effort, normal air movement and clear to auscultation bilaterally Auscultation: Negative for crackles, rales, rhonchi or wheezes Cardio regular rate, regular rhythm, S1 normal heart sound, S2 normal heart sound, no murmurs and no JVD Peripheral Pulses: pulses 2+ throughout GI normal to inspection, nondistended, normoactive bowel sounds; Negative for hepatosplenomegaly GI Narrative: Minimal tenderness. Auscultation: normoactive bowel sounds Palpation: tender Extremity normal to inspection, full ROM and no clubbing, cyanosis or edema Skin no rashes or lesions noted, no wounds and no petechiae Neuro oriented x3, CN's II-XII intact bilaterally and moves all extremities Sensorium / Orientation: alert Speech: speech normal Motor Exam: strength 5/5 throughout Psych mental status grossly normal, affect normal and denies hallucinations Assessment & Plan Assessment/Plan (1) Acute colitis: (2) Severe sepsis: (3) Diverticulitis: (4) C. difficile colitis: PLAN: This is a 59 years old female patient presented to the emergency room because of increasing and recurrent abdominal pain, nausea, vomiting with diarrhea after she was admitted and treated for acute C. difficile colitis affecting the ascending and sigmoid colon, found to have persistent diverticulitis on CT scan abdomen as well as severe sepsis. #1 Persistent acute severe colitis/diverticulitis of the sigmoid colon due to C. difficile infection/severe sepsis: She is on p.o. vancomycin. Flagyl and ciprofloxacin discontinued. Symptoms are improving but still there. She has been afebrile, no leukocytosis. Stool for C. difficile came back negative. Stool for enteric pathogens came back negative as well. Stool for Giardia lamblia is negative. She is on full liquid diet. She is requesting to avoid narcotics. Plan: DC IV morphine, start IV Toradol as needed, change IM Phenergan to p.o. Phenergan, repeat CBC and BMP tomorrow morning. #2 hypokalemia: Likely due to diarrhea. Potassium replaced and corrected. #3 DVT prophylaxis: Subcu Lovenox. This note was generated with [employer] dictation software. It may contain incorrect words, spelling, and punctuation that were not noted in checking the note before signing. Charges/Coding Visit Charges Inpatient E&M: 56672 Subs Hosp L2
[2020-09-26] MEDS: proMETHazine 25 MG Tablet 12.5 MG PO ×3 (08:30→18:56)
[2020-09-26] MEDS: Pantoprazole Sodium 40 MG Tablet PO (08:30)
[2020-09-26 08:37] VITALS: BP 142/80; PULSE 74; RESP 18; TEMP 36.7; O2SAT 96
--- NOTE | 2020-09-26 09:15 | CASEMGMT ---
Pt screened with [facility] Palliative Care Screening Tool due to Strata 3 and Readmission. Pt did not meet criteria.
[2020-09-26] MEDS: Ketorolac 15 MG/ML Vial IV ×2 (10:31→21:20)
--- NOTE | 2020-09-26 14:06 | PCM.PN.ID ---
Physical Exam Narrative Diarrhea x2 yesterday, some nausea. Pain slowly improving. Did ok with lunch today. No fever. Const alert and no apparent distress General Appearance: cooperative Resp normal air movement and clear to auscultation bilaterally Cardio regular rate and regular rhythm GI normal to inspection, nondistended, normoactive bowel sounds Skin no rashes or lesions noted ID ID: Route of nutrition/ use of supplements: [] Nutritional Intake: [] IV Site: [] Guillory Catheter: [] Assessment & Plan Assessment/Plan (1) Severe sepsis: PLAN: severe sepsis due to cdiff colitis and diverticulitis - failed after discharge on po vanc and augmentin. Repeat CT shows not much change since last admit. Surgery consulted, Dr. Hassan following. Sx improved, now wbc back to normal. Diarrhea resolved this AM. Plan on po vanc for 10 more days, stop date 10/05/20. Likely discharge soon if she's able to tolerate diet. Will follow (2) Diverticulitis: (3) C. difficile colitis:
[2020-09-26 15:51] VITALS: BP 139/81; PULSE 84; RESP 18; TEMP 36.7; O2SAT 94
[2020-09-26 21:11] VITALS: BP 141/83; PULSE 81; RESP 18; TEMP 37.1; O2SAT 98
[2020-09-27] MEDS: proMETHazine 25 MG Tablet 12.5 MG PO ×2 (00:23→06:34)
[2020-09-27 03:34] VITALS: BP 148/82; PULSE 76; RESP 18; TEMP 36.7; O2SAT 98
--- NOTE | 2020-09-27 07:15 | PCM.PN.SRG ---
Subjective Subjective Patient reports that she is feeling much better. She reports that she tolerated transitional diet with only 1 small bowel movement. Her pain is minimal if any. Objective Data Objective Data Vital Signs: Vital Signs Temp Pulse Resp BP Pulse Ox 98.1 F 76 18 148/82 H 98 09/27/20 03:34 09/27/20 03:34 09/27/20 03:34 09/27/20 03:34 09/27/20 03:34 Oxygen Delivery Method Room Air Weight: 170 lb 6.4 oz Body Mass Index (BMI) 31.1 Intake & Output: Intake and Output for Last 24 Hours 09/25/20 09/26/20 09/27/20 23:59 23:59 23:59 Intake Total 847.5 / 847.5 950.25 / 950.25 300 / 300 Output Total 0 / 0 Balance 847.5 / 847.5 950.25 / 950.25 300 / 300 Lab / Micro Data Result Diagrams: 09/24/20 06:30 09/24/20 06:30 Micro: Microbiology 09/22/20 12:20 Blood Culture (Wb) - Right Forearm Blood Culture - Preliminary No growth in 48 hours. 09/22/20 12:15 Blood Culture (Wb) - Anticubital Right Blood Culture - Preliminary No growth in 48 hours. 09/22/20 Unknown Stool C. difficile DNA Amplification - Final 09/22/20 23:44 Stool Enteric Bacteriology - Final Physical Exam Const oriented x3 and no apparent distress Resp normal respiratory effort Cardio regular rate GI normal to inspection, nondistended, normoactive bowel sounds Assessment & Plan Assessment/Plan (1) C. difficile colitis: PLAN: Patient seems to be improving greatly. She had minimal pain with no narcotics and she did tolerate a transitional diet and only had 1 bowel movement. Okay for discharge from my standpoint. Follow-up as needed. Thomas Hassan MD Pager: [facility] [address] [place] [address], [address] [place] [address] Office:
[2020-09-27 07:27] LABS: Absolute Lymphocyte Count 2.05 X10^3/uL (0.83-4.51); Absolute Neutrophil Count 3.5 X10^3/uL (2.0-7.7); Basophil# 0.06 X10^3/uL; Basophil% 0.9 % (0-1); Eosinophil# 0.52 X10^3/uL; Eosinophils% 7.6 % (0-5); Hematocrit 39.4 % (37-47); Hemoglobin 12.7 g/dL (12.0-15.0); Lymphocyte # 2.05 X10^3/ul (0.83-4.51); Lymphocyte % 29.8 % (19-41); Mean Corp Hgb Conc 32.2 g/dL (32-36); Mean Corpuscular Hgb 29.3 pg (27.0-32.0); Mean Platelet Vol. 11.3 fl (6.2-12.0); Monocyte# 0.71 X10^3/uL; Monocyte% 10.3 % (0-10); NRBC Flagged by Analyzer 0 % (0-5); Neutrophil # 3.52 X10^3/uL (2.7-7.7); Neutrophil % 51.3 % (47-70); Platelet Count 265 K/mm3 (150-450); RBC Distribution Width CV 13.2 % (11.6-14.6); RBC Distribution Width SD 44.5 fl (35.1-43.9); Red Blood Count 4.33 M/mm3 (4.2-5.4); White Blood Count 6.9 K/mm3 (4.4-11.0)
[2020-09-27 07:41] VITALS: BP 142/85; PULSE 73; RESP 14; TEMP 36.7; O2SAT 98
[2020-09-27 08:08] LABS: Anion Gap 8 (5-15); BUN 11 mg/dL (7-18); BUN/Creat Ratio 13.8 RATIO (10-20); Calcium,Total 8.8 mg/dL (8.5-10.1); Chloride 111 mmol/L (98-107); EST Glomerular Filtration Rate 78 mL/min (>60); Est Glom Filt Rate - Afr Amer 95 mL/min (>60); Estimated Creatinine Clearance 60.62 ml/min; Glucose 98 mg/dL (74-106); Potassium 3.5 mmol/L (3.5-5.1); Sodium Level 142 mmol/L (136-145)
--- NOTE | 2020-09-27 08:52 | PCM.DC ---
Discharge Instructions Diet Discharge Diet: Light diet - advance as tolerated Activity Discharge Activity: Return to Normal Activity Weight Bearing Status: Full weight bearing Dressing / Incision Call your doctor if you observe: Fever of 101 or Higher, Shortness of breath, Dizziness, Fainting spells, Chest pain, Increased palpitations (irregular heartbeat) and Uncontrolled pain Follow Up Care Test Results: Test results from this visit will be discussed in further detail at your follow-up appointment, if applicable. Discharge Plan Admission Admit Date/Time: 09/22/20 10:15 Primary Reason for Your Visit: Acute C. difficile colitis Attending Provider: Casimiro Hess Primary Care Provider: Romeo Robbins III Consulting Providers: Thomas Hassan ; Jaun Perez Discharge Orders/Prescriptions Prescriptions: New pantoprazole 40 mg Tablet,Delayed Release (Dr/Ec) 40 mg PO DAILY Qty: 14 RF: 0 promethazine 25 mg Tablet 12.5 mg PO Q4H PRN PRN (Reason: NAUSEA/VOMITING) Qty: 30 RF: 0 ketorolac 10 mg tablet 10 mg PO TID PRN (Reason: pain) Qty: 10 RF: 0 Continued estradiol 0.05 MG patch 1 patch topical QODAY RF: 0 acidophilus-pectin, citrus 25 million cell -100 mg Tablet 1 tab PO TID Qty: 90 RF: 0 vancomycin 125 mg capsule 125 mg PO Q6H 9 Days Qty: 36 RF: 0 Discontinued ondansetron 4 MG tablet 4 mg PO Q8H PRN PRN (Reason: Nausea) Qty: 10 RF: 0 naproxen 500 MG tablet 500 mg PO BID PRN Qty: 20 RF: 0 omeprazole 20 MG capsule 20 mg PO DAILY PRN (Reason: Indigestion) RF: 0 amoxicillin-pot clavulanate [Augmentin] 875-125 mg tablet 1 tab PO BID Qty: 8 RF: 0 fluconazole [Diflucan] 150 mg tablet 150 mg PO Q3D PRN (Reason: yeast) RF: 0 Referrals / Follow Up: Romeo Robbins III, MD [Primary Care Provider] - In 1 Week Disposition Disposition (needs filled in before D/C Order can be placed): Home, self care
[2020-09-27] MEDS: Pantoprazole Sodium 40 MG Tablet PO (08:56)
--- NOTE | 2020-09-27 11:39 | PCM.DC.SUM ---
Providers Date of Admission: 09/22/20 Primary Care Physician: Dr. Romeo Robbins III, MD Consultations 09/22/20 10:49 Consult: Infectious Disease Routine Consulting Provider: Jaun Perez Reason for Consult: Persistent C. difficile colitis, diverticulitis EMERGENT Consult: No Notified: Yes Date Notified: 09/22/20 Time Notified: 13:30 Method of Notification: Text 09/22/20 10:52 Consult: General Surgery Routine Consulting Provider: Thomas Hassan Reason for Consult: Persistent C. difficile colitis, acute diverticulitis EMERGENT Consult: No Notified: Yes Date Notified: 09/22/20 Time Notified: 12:46 Method of Notification: Text Reason For Visit: C DIFF DIVERTICULITIS Diagnosis Discharge Diagnosis (1) C. difficile colitis: Status: Acute Code(s): A04.72 - Enterocolitis due to Clostridium difficile, not specified as recurrent (2) Acute colitis: Status: Acute Code(s): K52.9 - Noninfective gastroenteritis and colitis, unspecified (3) Severe sepsis: Status: Acute Code(s): A41.9 - Sepsis, unspecified organism; R65.20 - Severe sepsis without septic shock (4) Diverticulitis: Status: Acute Code(s): K57.92 - Diverticulitis of intestine, part unspecified, without perforation or abscess without bleeding Medications at Discharge Home Medications estradiol 1 patch TOPICAL QODAY 04/12/13 acidophilus-pectin, citrus 1 tab PO TID #90 tab 09/18/20 ketorolac 10 mg PO TID PRN #10 tab 09/27/20 pantoprazole 40 mg PO DAILY #14 tab 09/27/20 promethazine 12.5 mg PO Q4H PRN PRN #30 tab 09/27/20 vancomycin 125 mg PO Q6H 9 Days #36 cap 09/27/20 Hospital Course Operations None Procedures None Summary of Care Provided Minutes Spent on Discharge: 32 Hospital Course: This is a 59 years old female patient presented to the emergency room because of recurrent and increasing abdominal pain, nausea, vomiting and diarrhea, was discharged from the hospital 5 days before this admission after admission for acute C. difficile colitis of the ascending and sigmoid colon. She was discharged on p.o. vancomycin and Augmentin but she failed treatment after inpatient admission. During this hospital stay, CT scan abdomen and pelvis revealed persistent inflammation of the colon/colitis with diverticulitis but improved. Patient was found to have severe sepsis. She was started on IV fluids, IV Flagyl and ciprofloxacin and she was continued on p.o. vancomycin. With above-mentioned treatment, her symptoms improved very slowly, WBC returned back to normal and she remained afebrile. Stool for C. difficile came back negative. General surgery consulted and recommended to continue conservative treatment. Infectious disease consulted and agreed to keep patient on IV ciprofloxacin and Flagyl as well as p.o. vancomycin. Her symptoms improved very slowly, she was started on clear liquids and then advance to full liquid diet. She was treated with IV morphine, IM Phenergan, IV Toradol to control her pain. On the day of discharge, patient tolerated transitional diet. She had no more diarrhea. Abdominal pain improved. Patient discharged home in a stable medical condition, discharged on p.o. vancomycin only for 9 more days of treatment, discharged on Phenergan as needed for nausea and vomiting, Toradol as needed for pain, recommended from the PCP in 1 week. Physical Exam Const alert, oriented x3, no apparent distress and no limitations Constitutional Narrative: She is in mild to moderate pain. General Appearance: cooperative, comfortable and well kempt HEENT normocephalic, head/scalp atraumatic and moist oral mucous membranes Eyes PERRL, EOMs intact bilaterally, conjunctivae normal and no scleral icterus General Eye: normal appearance of both eyes Periorbital: periorbital findings normal Neck no lymphadenopathy, supple, no meningeal signs, no JVD and no carotid bruits General: trachea midline Thyroid: thyroid normal Resp normal respiratory effort, normal air movement and clear to auscultation bilaterally Auscultation: Negative for crackles, rales, rhonchi or wheezes Cardio regular rate, regular rhythm, S1 normal heart sound, S2 normal heart sound, no murmurs and no JVD Peripheral Pulses: pulses 2+ throughout GI normal to inspection, nondistended, normoactive bowel sounds; Negative for hepatosplenomegaly GI Narrative: Minimal tenderness. Auscultation: normoactive bowel sounds Palpation: tender Extremity normal to inspection, full ROM and no clubbing, cyanosis or edema Skin no rashes or lesions noted, no wounds and no petechiae Neuro oriented x3, CN's II-XII intact bilaterally and moves all extremities Sensorium / Orientation: alert Speech: speech normal Motor Exam: strength 5/5 throughout Psych mental status grossly normal, affect normal and denies hallucinations Weight / BMI Weight Weight: 170 lb 6.4 oz Body Mass Index (BMI) 31.1 ABG / Lab / Microbiology Data Result Diagrams: 09/27/20 06:57 09/27/20 06:57 Laboratory: Laboratory Results - last 24 hr 09/27/20 09/27/20 06:57 06:57 WBC 6.9 RBC 4.33 Hgb 12.7 Hct 39.4 MCV 91.0 MCH 29.3 MCHC 32.2 RDW Std Deviation 44.5 H RDW Coeff of Angel 13.2 Plt Count 265 MPV 11.3 Immature Gran % (Auto) 0.100 Neut % (Auto) 51.3 Lymph % (Auto) 29.8 [place] % (Auto) 10.3 H Eos % (Auto) 7.6 H Baso % (Auto) 0.9 Absolute Neuts (auto) 3.5 Absolute Lymphs (auto) 2.05 Nucleated RBC % 0 Sodium 142 Potassium 3.5 Chloride 111 H Carbon Dioxide 23.0 Anion Gap 8 BUN 11 Creatinine 0.80 Estim Creat Clear Calc 60.62 Est GFR (MDRD) Af Amer 95 Est GFR (MDRD) Non-Af 78 BUN/Creatinine Ratio 13.8 Glucose 98 Calcium 8.8 Microbiology: Microbiology 09/22/20 12:20 Blood Culture (Wb) - Right Forearm Blood Culture - Preliminary No growth in 48 hours. 09/22/20 12:15 Blood Culture (Wb) - Anticubital Right Blood Culture - Preliminary No growth in 48 hours. 09/22/20 Unknown Stool C. difficile DNA Amplification - Final 09/22/20 23:44 Stool Enteric Bacteriology - Final D/C Instructions Discharge Diet: Light diet - advance as tolerated Weight Bearing Status: Full weight bearing Call your doctor if you observe: Fever of 101 or Higher, Shortness of breath, Dizziness, Fainting spells, Chest pain, Increased palpitations (irregular heartbeat) and Uncontrolled pain Meaningful Use Info Meaningful Use Diagnoses (Choose all that apply): None applicable Discharge Plan Admission Admit Date/Time: 09/22/20 10:15 Primary Reason for Your Visit: Acute C. difficile colitis Attending Provider: Casimiro Hess Primary Care Provider: Romeo Robbins III Consulting Providers: Thomas Hassan ; Jaun Perez Discharge Orders/Prescriptions Prescriptions: New pantoprazole 40 mg Tablet,Delayed Release (Dr/Ec) 40 mg PO DAILY Qty: 14 RF: 0 promethazine 25 mg Tablet 12.5 mg PO Q4H PRN PRN (Reason: NAUSEA/VOMITING) Qty: 30 RF: 0 ketorolac 10 mg tablet 10 mg PO TID PRN (Reason: pain) Qty: 10 RF: 0 Continued estradiol 0.05 MG patch 1 patch topical QODAY RF: 0 acidophilus-pectin, citrus 25 million cell -100 mg Tablet 1 tab PO TID Qty: 90 RF: 0 vancomycin 125 mg capsule 125 mg PO Q6H 9 Days Qty: 36 RF: 0 Discontinued ondansetron 4 MG tablet 4 mg PO Q8H PRN PRN (Reason: Nausea) Qty: 10 RF: 0 naproxen 500 MG tablet 500 mg PO BID PRN Qty: 20 RF: 0 omeprazole 20 MG capsule 20 mg PO DAILY PRN (Reason: Indigestion) RF: 0 amoxicillin-pot clavulanate [Augmentin] 875-125 mg tablet 1 tab PO BID Qty: 8 RF: 0 fluconazole [Diflucan] 150 mg tablet 150 mg PO Q3D PRN (Reason: yeast) RF: 0 Referrals / Follow Up: Romeo Robbins III, MD [Primary Care Provider] - In 1 Week Disposition Disposition (needs filled in before D/C Order can be placed): Home, self care Charges/Coding Visit Charges Inpatient E&M: 27410 Disch Hosp
--- NOTE | 2020-09-29 14:35 | CASEMGMT ---
KYE CM Discharge Follow-up Phone Call: NADINE: 11 Strata: 3 Call Date: 09/29/20 Discharge Date: 09/27/20 Time of Call: 1435 Duration: 1 min Admitting Diagnosis: C-Diff, Diverticulitis RN MADISYN attempted to complete follow-up phone call after recent hospitalization. No answer, voice message left with return contact information.
== END 2020-09-27 10:43 | disposition home or self-care (01) | DRG 872 ==
LOC: ED 09:16 → MS3 09-23 09:48
PROVIDERS: Emergency Medicine; Admitting Provider Hospitalist; Emergency Provider Emergency Medicine; PCP Family Medicine; Visit Provider Hospitalist
DX: A41.89 Other specified sepsis (principal); A04.72 Enterocolitis due to Clostridium difficile, not specified as recurrent; K57.32 Diverticulitis of large intestine without perforation or abscess without bleeding; R65.20 Severe sepsis without septic shock; E87.6 Hypokalemia
CPT/HCPCS: 36415; 74177; 80048; 80053; 81001; 83605; 83690; 85025; 87040; 87329; 87493; 87506; 99251; 99285; J7050; J7120; Q9967; A4216; G0463; J0744; J2405

== ENCOUNTER 2020-10-09 15:13 | Emergency (ER) | payer BC, SELFPAY ==
[2020-09-22 11:55] VITALS: BMI 31.1
[2020-10-09] VITALS (7 sets, daily range): BP systolic 126–164; BP diastolic 74–105; PULSE 75–94; RESP 15–17; TEMP 36.4–37.1; O2SAT 95–98; BMI 30.1
--- NOTE | 2020-10-09 15:55 | CT_ITS ---
STUDY: CT ABDOMEN AND PELVIS WITH CONTRAST REASON FOR EXAM: Female, 59 years old. All all pain -- IV PO Contrast RADIATION DOSAGE (If Supplied By Facility): CTDIvol = ( 13.57 ) mGy, DLP = ( 781.73 ) mGycm TECHNIQUE: Transaxial images were obtained from the dome of the diaphragm to the symphysis pubis with oral contrast. O100mL Isovue-300 was administered. Sagittal and coronal images were reconstructed. Individualized dose optimization techniques were used for this CT. COMPARISON: 09/22/2020 FINDINGS: The visualized lung bases are unremarkable. The visualized portions of the heart are within normal limits. Normal liver. There is non-visualization of the gallbladder, which may be secondary to either contraction or a prior cholecystectomy. Normal spleen. Normal pancreas. Normal bilateral adrenal glands. Normal right kidney. 3 mm nonobstructing upper pole stone, otherwise unremarkable left kidney. Normal visualized stomach. Normal small intestine. There is diffuse wall thickening of the descending and sigmoid colon. There is evidence of chronic diverticulosis. There is non-visualization of the appendix. Normal abdominal aorta. Normal inferior vena cava. Normal retroperitoneum. Normal urinary bladder. There is absence of the uterus consistent with a prior hysterectomy. Normal abdominal wall. Normal osseous structures. CT/Abdomen/Pelvis WITH Contrast IMPRESSION: Diffuse wall thickening of the descending and sigmoid colon may indicate colitis in the appropriate clinical setting. Small nonobstructing 3 mm left upper pole renal stone. Electronically Signed: Hunter Lyn MD at 18:55 EDT Tel , Service support ,
--- NOTE | 2020-10-09 15:56 | ED.VIS.GI ---
HPI HPI - GI History of Present Illness Chief Complaint: Diarrhea Narrative Narrative: 59-year-old female presenting with diarrhea. She is going 3-4 times a day. She was previously admitted to [facility] for C. difficile colitis. She was sent home on oral vancomycin and finished this Tuesday. Since then she notes the diarrhea has increased. She has some mild intermittent cramping pain in the bilateral right and left lower quadrants. Currently she is pain-free. She has not had a fever. She describes her stool is mucousy. Patient states she initially had C. difficile 4 years ago and had not been on any antibiotics prior to her last episode of C. difficile. Patient states he does not work and stays at home. She is unsure how she contracted C. difficile colitis previously. Patient states that she called Dr. Renee who encouraged her to go to the ER to be evaluated. She states that he did not want her to wait too long because last time she was more ill. He was supposed to give report to Dr. Hughes as he is going out of town. PFSH PFS Medical History C. difficile colitis Diverticulitis Home Medications estradiol 1 patch TOPICAL QODAY 04/12/13 [History Last Taken Unknown] promethazine 12.5 mg PO Q6H PRN #64 tab 10/09/20 [Rx Last Taken Unknown] vancomycin 125 mg PO Q6H #64 cap 10/09/20 [Rx Last Taken Unknown] Allergy/AdvReac Type Severity Reaction Status Date / Time midazolam [From Versed] Allergy WENT Verified 10/09/20 15:16 COMPLETELY NUMB butorphanol tartrate AdvReac Abd Verified 10/09/20 15:16 [From Stadol] cramps/diarrhea codeine AdvReac Abd Verified 10/09/20 15:16 cramps/diarrhea Surgical History History of appendectomy History of cholecystectomy History of hysterectomy Social History household members: spouse Smoking Status: Never smoker alcohol intake: never ROS ROS ED Constitutional Constitutional ED: Denies chills, fever(s) or subjective ENT ENT ED: Denies ear pain or rhinorrhea Cardiovascular Cardiovascular: Denies chest pain or palpitations Respiratory/Chest Respiratory/Chest: Denies cough, dyspnea or sputum Gastrointestinal Gastrointestinal: Reports abdominal pain, diarrhea and nausea; Denies constipation or melena Genitourinary Genitourinary ED: Denies dysuria or hematuria Musculoskeletal Musculoskeletal: Denies arthralgias or myalgias Integumentary Denies abscess or rash Neurologic Neurologic: Denies headache(s), paresthesias or weakness EXAM Physical Exam Const Vital Signs: 10/09/20 15:14 10/09/20 16:33 10/09/20 17:47 Temperature 97.6 F L 97.9 F 98.2 F Temperature Source Temporal Temporal Temporal Pulse Rate 94 84 94 Respiratory Rate 17 15 16 Blood Pressure 130/90 H 154/86 H 126/105 H Blood Pressure Mean 103 108 112 Pulse Ox 96 96 95 Oxygen Delivery Method Room Air Room Air Room Air 10/09/20 18:30 10/09/20 19:00 10/09/20 20:27 Temperature 98.3 F 98.7 F 98.0 F Temperature Source Temporal Temporal Temporal Pulse Rate 83 75 75 Respiratory Rate 15 16 15 Blood Pressure 144/79 H 138/74 H 161/85 H Blood Pressure Mean 100 95 110 Pulse Ox 98 96 97 Oxygen Delivery Method Room Air Room Air Room Air 10/09/20 22:22 Temperature Temperature Source Pulse Rate 80 Respiratory Rate 15 Blood Pressure 164/82 H Blood Pressure Mean Pulse Ox 98 Oxygen Delivery Method Positive well nourished General Appearance ED: NAD HEENT Reports moist mucous membranes normocephalic and atraumatic Eyes PERRL and EOMs intact bilaterally General Eye ED: Negative for pale conjunctiva or scleral icterus Neck no lymphadenopathy and supple Resp normal respiratory effort and clear to auscultation bilaterally Cardio regular rate and regular rhythm GI non-distended GI Narrative: No reproducible abdominal pain Palpation: soft Back/Spine Negative for no CVA tenderness Extremity full ROM General Extremety ED: Negative for edema General Extremity: Negative for edema Neuro Sensorium / Orientation: alert and oriented to person Psych mental status grossly normal and thought process normal Skin Lesions: No no lesions Rashes: No no rashes MDM MDM MDM Narrative Medical decision making narrative: Patient presenting with some mild abdominal pain and concern for return of her C. difficile colitis. Blood work-up today shows white blood cell count of 6.4, hemoglobin 14.4, platelets 237 there is no left shift. Patient's renal function and electrolytes are normal. LFTs are normal. Urinalysis is negative. Patient had CT of the abdomen pelvis with p.o. and IV contrast which showed some mild colitis. Her C. difficile study was negative. After talking with after arrival she did think the patient may need to be admitted for C. difficile colitis and may be recurrent. Since her C. difficile study was negative I spoke with Dr. Cabral regarding the requested admission for monitoring. He did not feel she needed to be admitted to the hospital given her normal labs and negative C. difficile antigen. He did state that it could be possible she could be recurrent wheezing with a negative because she had this before. Given that she is stable we will give her a dose of oral vancomycin here and send her home with a prescription. She will follow up outpatient or return for new or worsening symptoms. Impression: 1. Colitis Lab Data Attestation: I reviewed the patient's lab results. Labs: Laboratory Results - last 24 hr 10/09/20 10/09/20 10/09/20 16:21 16:21 17:44 WBC 6.4 RBC 4.87 Hgb 14.4 Hct 44.2 MCV 90.8 MCH 29.6 MCHC 32.6 RDW Std Deviation 45.2 H RDW Coeff of Angel 13.5 Plt Count 237 MPV 10.9 Immature Gran % (Auto) 0.300 Neut % (Auto) 58.9 Lymph % (Auto) 27.8 [place] % (Auto) 9.0 Eos % (Auto) 3.4 Baso % (Auto) 0.6 Absolute Neuts (auto) 3.8 Absolute Lymphs (auto) 1.78 Nucleated RBC % 0 Sodium 140 Potassium 4.5 Chloride 109 H Carbon Dioxide 24.0 Anion Gap 7 BUN 12 Creatinine 0.82 Estim Creat Clear Calc 59.15 Est GFR (MDRD) Af Amer 91 Est GFR (MDRD) Non-Af 75 BUN/Creatinine Ratio 14.5 Glucose 92 Calcium 9.1 Total Bilirubin 0.70 AST 81 H ALT 96 H Alkaline Phosphatase 87 Troponin I High Sens Cancelled Total Protein 7.9 Albumin 3.6 Globulin 4.3 H Albumin/Globulin Ratio 0.8 L Lipase 106 Urine Color Yellow Urine Clarity Clear Urine pH 5.0 Ur Specific [place] 1.025 Urine Protein Negative Urine Glucose (UA) Normal Urine Ketones 150 A* Urine Occult Blood 25 H Urine Nitrite Negative Urine Bilirubin Negative Urine Urobilinogen Normal Ur Leukocyte Esterase Negative Urine RBC 0 SEEN Urine WBC 0-5 SEEN Ur Squamous Epith Cells 0-5 SEEN Urine Bacteria 0 SEEN Urine Mucus 2+ Radiography Diagnostic Testing: Radiology Impression Abdomen/Pelvis CT 10/09/20 15:55 IMPRESSION: Diffuse wall thickening of the descending and sigmoid colon may indicate colitis in the appropriate clinical setting. Small nonobstructing 3 mm left upper pole renal stone. Electronically Signed: Hunter Lyn MD at 18:55 EDT Tel , Service support , Discharge Plan Triage Chief Complaint: Diarrhea ED Provider: Frank Brantley Dx/Rx/DC Orders Instructions: Clostridium Difficile Infection Prescriptions: New vancomycin 125 mg capsule 125 mg PO Q6H Qty: 64 RF: 0 promethazine 12.5 mg tablet 12.5 mg PO Q6H PRN (Reason: nausea and vomiting) Qty: 64 RF: 0 Continued estradiol 0.05 MG patch 1 patch topical QODAY RF: 0 Primary Care Provider: Romeo Robbins III Referrals: Romeo Robbins III, MD [Primary Care Provider] - Selam Hughes MD [STAFF PHYSICIAN] - As soon as possible Disposition Disposition: Home, Self Care Discharge Date/Time: 10/09/20 22:23
[2020-10-09] MEDS: Ondansetron 4 MG/2 ML Vial IV (16:29)
[2020-10-09 16:32] LABS: Absolute Lymphocyte Count 1.78 X10^3/uL (0.83-4.51); Absolute Neutrophil Count 3.8 X10^3/uL (2.0-7.7); Basophil# 0.04 X10^3/uL; Basophil% 0.6 % (0-1); Eosinophil# 0.22 X10^3/uL; Eosinophils% 3.4 % (0-5); Hematocrit 44.2 % (37-47); Hemoglobin 14.4 g/dL (12.0-15.0); Lymphocyte # 1.78 X10^3/ul (0.83-4.51); Lymphocyte % 27.8 % (19-41); Mean Corp Hgb Conc 32.6 g/dL (32-36); Mean Corpuscular Hgb 29.6 pg (27.0-32.0); Mean Corpuscular Volume 90.8 fL (81-99); Mean Platelet Vol. 10.9 fl (6.2-12.0); Monocyte# 0.58 X10^3/uL; NRBC Flagged by Analyzer 0 % (0-5); Neutrophil # 3.77 X10^3/uL (2.7-7.7); Neutrophil % 58.9 % (47-70); Platelet Count 237 K/mm3 (150-450); RBC Distribution Width CV 13.5 % (11.6-14.6); RBC Distribution Width SD 45.2 fl (35.1-43.9); Red Blood Count 4.87 M/mm3 (4.2-5.4); White Blood Count 6.4 K/mm3 (4.4-11.0)
[2020-10-09 16:52] LABS: ALB/GLOB Ratio 0.8 RATIO (0.9-2.4); AST(SGOT) 81 U/L (15-37); Alanine Aminotransfer ALT/SGPT 96 U/L (13-56); Albumin, Serum 3.6 g/dL (3.2-5.0); Alkaline Phosphatase 87 U/L (45-117); Anion Gap 7 (5-15); BUN 12 mg/dL (7-18); BUN/Creat Ratio 14.5 RATIO (10-20); Calcium,Total 9.1 mg/dL (8.5-10.1); Chloride 109 mmol/L (98-107); Creatinine, Serum 0.82 mg/dL (0.55-1.02); EST Glomerular Filtration Rate 75 mL/min (>60); Est Glom Filt Rate - Afr Amer 91 mL/min (>60); Estimated Creatinine Clearance 59.15 ml/min; Globulin 4.3 g/dL (2.2-4.2); Glucose 92 mg/dL (74-106); Lipase 106 U/L (73-393); Potassium 4.5 mmol/L (3.5-5.1); Protein, Total 7.9 g/dL (6.4-8.2); Sodium Level 140 mmol/L (136-145)
[2020-10-09 17:53] LABS: Bacteria 0 SEEN /hpf (None Seen); Red Blood Cells-Urine 0 SEEN /hpf (0-5)
[2020-10-09 18:02] LABS: Color, Urine Yellow (Yellow); Glucose, Dipstick Normal (Normal); Leukocyte Esterase-Dipstick Negative /ul (Negative); Nitrite-Dipstick Negative (Negative); Occult Blood-Urine 25 /ul (Negative); Protein-Dipstick Negative (Negative); Specific Gravity, Urine 1.025 (1.002-1.030); Urine Bilirubin Dipstick Negative (Negative); Urine Clarity Clear (Clear); Urine Urobilinogen Normal (Normal)
[2020-10-09 18:15] LABS: Ketone-Dipstick 150 mg/dl (Negative)
[2020-10-09 18:16] LABS: Mucous, Urine 2+ /hpf (<or=2+); Squamous Epithelial Cells - UA 0-5 SEEN /hpf (5-10); White Blood Cells 0-5 SEEN /hpf (0-5)
--- NOTE | 2020-10-09 21:31 | CON.PCM.HO_ITS ---
Assessment & Plan Assessment/Plan (1) C. difficile colitis: PLAN: 1. 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 Patient did have improvement while being on the vancomycin. Patient had previously tested positive for this as outpatient and not available in our system. Therefore, I feel is reasonable to presume that this is recurrence of her C. difficile colitis and now recommending a taper of vancomycin. Taper would be 125 mg 4 times daily for 10 days, twice daily for 7 days, once daily for 7 days and then every other day x3. Pt states that she needs Phenergan with the vancomycin. I did start the emergency room physician to give her a dose of th e vancomycin and Phenergan tonight and then I have sent prescription to her pharmacy for the rest. Patient advised to return if she is feeling worse. I gave patient the option to stay is observation but told her that we would just essentially be used given her vancomycin which is what she would be taking at home. She and her are both comfortable with going home and are comfortable notifying someone if her symptoms do get worse. I did advise that she follow-up with general surgery or gastroenterology for evaluation for colonoscopy to rule out any kind of inflammatory bowel disease. Though unlikely, given his protracted nature is a this certainly a possibility. Did talk to the patient also about other treatments including other different antibiotics and also fecal transplants though not indicated at this point. Case discussed with Dr. Brantley and the patient will be discharged home. HPI Consult Data Date of Consult: 10/09/20 HPI Narrative HPI Narrative: BRETT MCINTYRE, is a 59 F who presents presents with recurrent diarrhea. Patient had been recently treated for C. difficile and completed her vancomycin on the Tuesday. Then on Tuesday started having diarrhea that is just gotten worse and patient had 6 watery bowel movements today. This is consistent with her history of C. difficile. Patient present to the emergency room and her labs and vital signs were stable and her C. difficile toxin was negative. It was also negative on the seventh this month. The hospital service was contacted for evaluation for admission. [facility] Medical History C. difficile colitis Diverticulitis Home Medications estradiol 1 patch TOPICAL QODAY 04/12/13 [History Last Taken Unknown] promethazine 12.5 mg PO Q6H PRN #64 tab 10/09/20 [Rx Last Taken Unknown] vancomycin 125 mg PO Q6H #64 cap 10/09/20 [Rx Last Taken Unknown] Allergy/AdvReac Type Severity Reaction Status Date / Time midazolam [From Versed] Allergy WENT Verified 10/09/20 15:16 COMPLETELY NUMB butorphanol tartrate AdvReac Abd Verified 10/09/20 15:16 [From Stadol] cramps/diarrhea codeine AdvReac Abd Verified 10/09/20 15:16 cramps/diarrhea Surgical History History of appendectomy History of cholecystectomy History of hysterectomy Social History household members: spouse Smoking Status: Never smoker alcohol intake: never ROS ROS Narrative Slight increase in temperature and some chills but no fever. Lower abdominal pain. Diarrhea. All review of systems were negative except as mentioned above in the history of present illness and the other review of systems. Physical Exam Const alert General Appearance: cooperative HEENT normocephalic Neck no lymphadenopathy Resp normal respiratory effort and no use of accessory muscles Cardio regular rate, regular rhythm, S1 normal heart sound and S2 normal heart sound GI normal to inspection, nondistended, normoactive bowel sounds and non-distended GI Narrative: Suprapubic tenderness Extremity normal to inspection Neuro Sensorium / Orientation: awake and alert Psych affect normal Lab / Micro Data Attestation: I reviewed the patient's lab results. Result Diagrams: 10/09/20 16:21 10/09/20 16:21 Labs: Laboratory Results - last 24 hr 10/09/20 10/09/20 10/09/20 16:21 16:21 17:44 WBC 6.4 RBC 4.87 Hgb 14.4 Hct 44.2 MCV 90.8 MCH 29.6 MCHC 32.6 RDW Std Deviation 45.2 H RDW Coeff of Angel 13.5 Plt Count 237 MPV 10.9 Immature Gran % (Auto) 0.300 Neut % (Auto) 58.9 Lymph % (Auto) 27.8 [place] % (Auto) 9.0 Eos % (Auto) 3.4 Baso % (Auto) 0.6 Absolute Neuts (auto) 3.8 Absolute Lymphs (auto) 1.78 Nucleated RBC % 0 Sodium 140 Potassium 4.5 Chloride 109 H Carbon Dioxide 24.0 Anion Gap 7 BUN 12 Creatinine 0.82 Estim Creat Clear Calc 59.15 Est GFR (MDRD) Af Amer 91 Est GFR (MDRD) Non-Af 75 BUN/Creatinine Ratio 14.5 Glucose 92 Calcium 9.1 Total Bilirubin 0.70 AST 81 H ALT 96 H Alkaline Phosphatase 87 Troponin I High Sens Cancelled Total Protein 7.9 Albumin 3.6 Globulin 4.3 H Albumin/Globulin Ratio 0.8 L Lipase 106 Urine Color Yellow Urine Clarity Clear Urine pH 5.0 Ur Specific [place] 1.025 Urine Protein Negative Urine Glucose (UA) Normal Urine Ketones 150 A* Urine Occult Blood 25 H Urine Nitrite Negative Urine Bilirubin Negative Urine Urobilinogen Normal Ur Leukocyte Esterase Negative Urine RBC 0 SEEN Urine WBC 0-5 SEEN Ur Squamous Epith Cells 0-5 SEEN Urine Bacteria 0 SEEN Urine Mucus 2+ Micro: Microbiology 10/09/20 17:44 C. difficile DNA Amplification - Final Stool Radiology Impression Abdomen/Pelvis CT 10/09/20 15:55 IMPRESSION: Diffuse wall thickening of the descending and sigmoid colon may indicate colitis in the appropriate clinical setting. Small nonobstructing 3 mm left upper pole renal stone. Electronically Signed: Hunter Lyn MD at 18:55 EDT Tel , Service support ,
[2020-10-09] MEDS: Vancomycin 125 MG/5 ML Susp PO.SYRINGE PO (22:10)
== END 2020-10-09 22:23 | disposition home or self-care (01) ==
PROVIDERS: Emergency Provider Student in an Organized Health Care Education/Training Program; PCP Family Medicine
DX: K52.9 Noninfective gastroenteritis and colitis, unspecified (principal); Z79.899 Other long term (current) drug therapy
CPT/HCPCS: 74177; 80053; 81001; 83690; 85025; 87177; 87209; 87493; 87506; 96374; 99284; Q9967; A4216; J2405

== ENCOUNTER 2021-04-28 14:54 | Emergency (ER) | payer BC, SELFPAY ==
[2021-04-28 14:55] VITALS: BP 115/75; PULSE 112; RESP 16; TEMP 35.6; O2SAT 95; BMI 30.3
--- NOTE | 2021-04-28 15:17 | CT_ITS ---
STUDY: CT ABDOMEN AND PELVIS WITH CONTRAST REASON FOR EXAM: Female, 60 years old. abdominal pain -- IV PO Contrast RADIATION DOSAGE (If Supplied By Facility): CTDIvol = ( 13.62 ) mGy, DLP = ( 791.84 ) mGycm TECHNIQUE: Transaxial images were obtained from the dome of the diaphragm to the symphysis pubis without oral contrast. Oral and amp; IV Gastrografin and amp; 100mL Isovue-300 was administered. Sagittal and coronal images were reconstructed. Individualized dose optimization techniques were used for this CT. COMPARISON: 10/09/2020 FINDINGS: The visualized lung bases are unremarkable. The visualized portions of the heart are within normal limits. Normal liver. There is non-visualization of the gallbladder, which may be secondary to either contraction or a prior cholecystectomy. Normal spleen. Normal pancreas. Normal bilateral adrenal glands. Normal right kidney. Normal left kidney. Normal visualized stomach. Normal small intestine. Normal colon. There is non-visualization of the appendix. Normal abdominal aorta. Normal inferior vena cava. Normal retroperitoneum. Normal urinary bladder. Normal abdominal wall. Mild dextroscoliosis lumbar spine with degenerative disc disease. CT/Abdomen/Pelvis WITH Contrast IMPRESSION: Normal enhanced CT of the abdomen and pelvis. Electronically Signed: Etienne Presley MD at 17:40 EST Tel , Service support ,
--- NOTE | 2021-04-28 15:18 | EDS_ITS ---
HPI HPI - GI History of Present Illness Chief Complaint: Abd Pain Detail of Chief Complaint: Abdominal pain that started a month ago initially. Informant: patient and spouse/S.O. Narrative Narrative: Patient presents with abdominal pain that initially started about a month ago and was intermittent and typically worse in the morning. Patient states she would drink some tavia karol and that seemed to resolve her issue. Over the last 4 days she has had continuous pain to the point that she cannot eat. She had nausea but no real vomiting. She denies diarrhea. She denies blood in her stool or black tarry stool. Patient has some pain also in her right mid back. Patient tells me she has had her gallbladder removed as well as her appendix and she has had a hysterectomy. Patient denies chest pain or shortness of breath. She is currently on Augmentin and being treated for right ear infection. Patient denies urinary symptoms. Prior similar symptoms: No PFSH PFSH Medical History C. difficile colitis Diverticulitis Home Medications estradiol 1 patch TOPICAL QODAY 04/12/13 [History Last Taken Unknown] promethazine 12.5 mg PO Q6H PRN #64 tab 10/09/20 [Rx Last Taken Unknown] vancomycin 125 mg PO Q6H #64 cap 10/09/20 [Rx Last Taken Unknown] lansoprazole [Prevacid] 30 mg PO DAILY 28 Days #28 cap 04/28/21 [Rx Last Taken Unknown] ondansetron 4 mg PO Q8H PRN PRN #10 tab 04/28/21 [Rx Last Taken Unknown] Allergy/AdvReac Type Severity Reaction Status Date / Time midazolam [From Versed] Allergy WENT Verified 04/28/21 14:57 COMPLETELY NUMB acetaminophen [From Percocet] AdvReac Nausea Verified 04/28/21 14:57 butorphanol tartrate AdvReac Abd Verified 04/28/21 14:57 [From Stadol] cramps/diarrhea codeine AdvReac Abd Verified 04/28/21 14:57 cramps/diarrhea oxycodone [From Percocet] AdvReac Nausea Verified 04/28/21 14:57 propoxyphene AdvReac Nausea Verified 04/28/21 14:58 [From Darvocet-N] Surgical History History of appendectomy History of cholecystectomy History of hysterectomy Social History household members: spouse Smoking Status: Never smoker alcohol intake: never ROS ROS ED Constitutional Constitutional ED: Reports systems reviewed and no addt'l complaints, except as documented; Denies body ache(s), change in weight or chills Eyes Eyes: Denies acute decrease in peripheral vision, change in vision, double vision or loss of vision ENT ENT ED: Reports none; Denies ear pain, lip swelling, loss taste/smell, neck pain, otalgia or sore throat Cardiovascular Cardiovascular: Reports none; Denies abdominal pain, chest pain with activity, leg edema, lightheadedness, palpitations, rapid heart rate or syncope Respiratory/Chest Respiratory/Chest: Reports none; Denies change in mental status, dry cough, dyspnea, hemoptysis, shortness of breath at rest or shortness of breath with exertion Gastrointestinal Gastrointestinal: Reports none, abdominal pain and nausea; Denies change in stool character, diarrhea, hematemesis, hematochezia, melena, rectal bleeding or vomiting Genitourinary Genitourinary ED: Reports none; Denies abdominal discomfort, anuria, dysuria, genital pain or polyuria Musculoskeletal Musculoskeletal: Reports none; Denies arthralgias, back pain, difficulty walking, extremity pain, muscle weakness or myalgias Integumentary Reports none; Denies abscess or rash Neurologic Neurologic: Reports none; Denies abnormal gait, confusion, focal weakness, frequent falls, headache(s), loss of vision, numbness, paresthesias, radicular pain, vertigo or weakness Psychiatric Psychiatric: Reports systems reviewed and no addt'l complaints, except as documented and none; Denies behavioral changes, confusion, difficulty concentrating, hallucinations, suicidal ideation, tactile hallucinations or visual hallucinations Endocrine Endocrinology: Denies none, cold intolerance, excessive sweating, fatigue or heat intolerance Hematologic/Lymphatic Hematologic/Lymphatic: Reports none; Denies anemia, easy bleeding or easy bruising Allergic/Immunologic Allergic/Immunologic ED: Denies as per HPI, none, lip swelling, mouth swelling, throat swelling, tongue swelling or hives EXAM Physical Exam Const Vital Signs: 04/28/21 14:55 04/28/21 19:49 Temperature 96.1 F L Temperature Source Temporal Pulse Rate 112 H 59 L Respiratory Rate 16 14 Blood Pressure 115/75 154/95 H Blood Pressure Mean 88 114 Pulse Ox 95 96 Oxygen Delivery Method Room Air Room Air Positive well nourished and well developed General Appearance ED: well developed and NAD HEENT Reports TM's clear and moist mucous membranes normocephalic and atraumatic; Negative for trauma or tenderness Tympanic Membrane ED: Yes TM's clear Eyes PERRL and EOMs intact bilaterally General Eye ED: Negative for pale conjunctiva or scleral icterus Neck no lymphadenopathy, supple and no JVD General: Negative for tenderness Chest Wall inspection of chest normal and palpation of chest normal Chest: Negative for tenderness Resp normal respiratory effort and clear to auscultation bilaterally Effort and Inspection: Negative for respiratory distress or pain with movement Auscultation: Negative for rhonchi, wheezes or diminished lung sounds Cardio regular rate, regular rhythm, S1 normal heart sound, S2 normal heart sound and no murmurs Peripheral Pulses: pulses 2+ throughout GI normal to inspection, nondistended, normoactive bowel sounds, soft to palpation, non-distended and no masses GI Narrative: Patient with diffuse tenderness to palpation. There are some mild guarding. There is no rebound, rigidity, or peritoneal signs. Patient also with some mild CVA tenderness on the right. Palpation: tender Back/Spine no CVA tenderness and no thoracic nor lumbar tenderness Extremity normal to inspection General Extremety ED: Negative for edema General Extremity: Negative for edema Neuro oriented x3, CN's II-XII intact bilaterally, no sensory deficits noted and gait normal Sensorium / Orientation: awake, alert, oriented to person, oriented to place and oriented to time Motor Exam: strength 5/5 throughout and strength abnormal Psych mental status grossly normal Skin no rashes or lesions noted and no wounds MDM MDM MDM Narrative Medical decision making narrative: IV line established on arrival. Patient was given Zofran for nausea. She did not anything for pain. Lab work-up was normal. CT scan with IV and p.o. contrast was normal. Patient had an EKG and troponin both were normal. This point etiology of her symptoms unclear. Patient will be started on Prevacid and given a prescription for Zofran. She will be referred to GI for follow-up. Lab Data Attestation: I reviewed the patient's lab results. Labs: Laboratory Results - last 24 hr 04/28/21 04/28/21 04/28/21 15:51 15:51 15:51 WBC 6.9 RBC 5.01 Hgb 15.3 H Hct 45.0 MCV 89.8 MCH 30.5 MCHC 34.0 RDW Std Deviation 41.9 RDW Coeff of Angel 12.7 Plt Count 182 MPV 10.5 Immature Gran % (Auto) 0.400 Neut % (Auto) 77.2 H Lymph % (Auto) 14.6 L [place] % (Auto) 7.5 Eos % (Auto) 0.0 Baso % (Auto) 0.3 Absolute Neuts (auto) 5.3 Absolute Lymphs (auto) 1.01 Nucleated RBC % 0 Sodium 136 Potassium 3.3 L Chloride 102 Carbon Dioxide 26.0 Anion Gap 8 BUN 15 Creatinine 1.01 Estim Creat Clear Calc 47.43 Est GFR (MDRD) Af Amer 72 Est GFR (MDRD) Non-Af 60 BUN/Creatinine Ratio 14.9 Glucose 90 Lactic Acid 1.1 Calcium 8.4 L Total Bilirubin 0.40 AST 31 ALT 30 Alkaline Phosphatase 77 Troponin I High Sens Total Protein 7.7 Albumin 3.3 Globulin 4.4 H Albumin/Globulin Ratio 0.8 L Lipase 83 Urine Color Urine Clarity Urine pH Ur Specific [place] Urine Protein Urine Glucose (UA) Urine Ketones Urine Occult Blood Urine Nitrite Urine Bilirubin Urine Urobilinogen Ur Leukocyte Esterase Urine RBC Urine WBC Ur Squamous Epith Cells Urine Bacteria Urine Mucus 04/28/21 04/28/21 15:51 16:57 WBC RBC Hgb Hct MCV MCH MCHC RDW Std Deviation RDW Coeff of Angel Plt Count MPV Immature Gran % (Auto) Neut % (Auto) Lymph % (Auto) [place] % (Auto) Eos % (Auto) Baso % (Auto) Absolute Neuts (auto) Absolute Lymphs (auto) Nucleated RBC % Sodium Potassium Chloride Carbon Dioxide Anion Gap BUN Creatinine Estim Creat Clear Calc Est GFR (MDRD) Af Amer Est GFR (MDRD) Non-Af BUN/Creatinine Ratio Glucose Lactic Acid Calcium Total Bilirubin AST ALT Alkaline Phosphatase Troponin I High Sens 6 Total Protein Albumin Globulin Albumin/Globulin Ratio Lipase Urine Color Yellow Urine Clarity Clear Urine pH 6.0 Ur Specific [place] 1.020 Urine Protein 30 H Urine Glucose (UA) Normal Urine Ketones 150 A* Urine Occult Blood 25 H Urine Nitrite Negative Urine Bilirubin Negative Urine Urobilinogen Normal Ur Leukocyte Esterase 25 H Urine RBC 0 SEEN Urine WBC 0-5 SEEN Ur Squamous Epith Cells 0-5 SEEN Urine Bacteria 0 SEEN Urine Mucus 1+ Radiography Diagnostic Testing: Clinical Impression(s) from Imaging Studies Abdomen/Pelvis CT 04/28/21 15:17 IMPRESSION: Normal enhanced CT of the abdomen and pelvis. Electronically Signed: Etienne Presley MD at 17:40 EST Tel , Service support , EKG Initial EKG: Attestation: I personally reviewed and interpreted this EKG as follows: Comments: Sinus rhythm with a rate of 92 bpm with no acute ST segment changes Discharge Plan Triage Chief Complaint: Abd Pain ED Provider: Bhavin Clark Dx/Rx/DC Orders Clinical Impression: Abdominal pain Instructions: ED Abdominal Pain Unkn Cause Fem Prescriptions: New ondansetron [ondansetron] 4 MG tablet 4 mg PO Q8H PRN PRN (Reason: Nausea) Qty: 10 RF: 0 lansoprazole [Prevacid] 30 mg capsule,delayed release(DR/EC) 30 mg PO DAILY 28 Days Qty: 28 RF: 0 No Action estradiol 0.05 MG patch 1 patch topical QODAY RF: 0 vancomycin 125 mg capsule 125 mg PO Q6H Qty: 64 RF: 0 promethazine 12.5 mg tablet 12.5 mg PO Q6H PRN (Reason: nausea and vomiting) Qty: 64 RF: 0 Primary Care Provider: Zaid Cantu Referrals: Friend,DO Ramón [STAFF PHYSICIAN] - 3-5 Days Zaid Cantu [Primary Care Provider] - Disposition Disposition: Home, Self Care
[2021-04-28] MEDS: 0.9% Normal Saline 1,000 ML 125 ML IV (15:49)
[2021-04-28] MEDS: Ondansetron 4 MG/2 ML Vial IV (15:49)
[2021-04-28 16:07] LABS: Absolute Lymphocyte Count 1.01 X10^3/uL (0.83-4.51); Absolute Neutrophil Count 5.3 X10^3/uL (2.0-7.7); Basophil# 0.02 X10^3/uL; Basophil% 0.3 % (0-1); Hemoglobin 15.3 g/dL (12.0-15.0); Lymphocyte # 1.01 X10^3/ul (0.83-4.51); Lymphocyte % 14.6 % (19-41); Mean Corpuscular Hgb 30.5 pg (27.0-32.0); Mean Corpuscular Volume 89.8 fL (81-99); Mean Platelet Vol. 10.5 fl (6.2-12.0); Monocyte# 0.52 X10^3/uL; Monocyte% 7.5 % (0-10); NRBC Flagged by Analyzer 0 % (0-5); Neutrophil # 5.32 X10^3/uL (2.7-7.7); Neutrophil % 77.2 % (47-70); Platelet Count 182 K/mm3 (150-450); RBC Distribution Width CV 12.7 % (11.6-14.6); RBC Distribution Width SD 41.9 fl (35.1-43.9); Red Blood Count 5.01 M/mm3 (4.2-5.4); White Blood Count 6.9 K/mm3 (4.4-11.0)
[2021-04-28 16:23] LABS: ALB/GLOB Ratio 0.8 RATIO (0.9-2.4); AST(SGOT) 31 U/L (15-37); Alanine Aminotransfer ALT/SGPT 30 U/L (13-56); Albumin, Serum 3.3 g/dL (3.2-5.0); Alkaline Phosphatase 77 U/L (45-117); Anion Gap 8 (5-15); BUN 15 mg/dL (7-18); BUN/Creat Ratio 14.9 RATIO (10-20); Calcium,Total 8.4 mg/dL (8.5-10.1); Chloride 102 mmol/L (98-107); Creatinine, Serum 1.01 mg/dL (0.55-1.02); EST Glomerular Filtration Rate 60 mL/min (>60); Est Glom Filt Rate - Afr Amer 72 mL/min (>60); Estimated Creatinine Clearance 47.43 ml/min; Globulin 4.4 g/dL (2.2-4.2); Glucose 90 mg/dL (74-106); Lipase 83 U/L (73-393); Potassium 3.3 mmol/L (3.5-5.1); Protein, Total 7.7 g/dL (6.4-8.2); Sodium Level 136 mmol/L (136-145)
[2021-04-28 16:32] LABS: Lactic Acid 1.1 mmol/L (0.4-1.9)
[2021-04-28 17:02] LABS: Bacteria 0 SEEN /hpf (None Seen); Red Blood Cells-Urine 0 SEEN /hpf (0-5)
[2021-04-28 17:05] LABS: Color, Urine Yellow (Yellow); Glucose, Dipstick Normal (Normal); Leukocyte Esterase-Dipstick 25 /ul (Negative); Nitrite-Dipstick Negative (Negative); Occult Blood-Urine 25 /ul (Negative); Protein-Dipstick 30 mg/dl (Negative); Urine Bilirubin Dipstick Negative (Negative); Urine Clarity Clear (Clear); Urine Urobilinogen Normal (Normal)
[2021-04-28 17:22] LABS: Ketone-Dipstick 150 mg/dl (Negative); Mucous, Urine 1+ /hpf (<or=2+); Squamous Epithelial Cells - UA 0-5 SEEN /hpf (5-10); White Blood Cells 0-5 SEEN /hpf (0-5)
--- NOTE | 2021-04-28 17:51 | EKG12_ITS ---
Test Reason : ABD & BACK PAIN Blood Pressure : / mmHG Vent. Rate : 092 BPM Atrial Rate : 092 BPM P-R Int : 138 ms QRS Dur : 092 ms QT Int : 378 ms P-R-T Axes : 043 -18 025 degrees QTc Int : 467 ms Normal sinus rhythm Normal ECG Confirmed by BARBARA HAQUE, LYN ([id number]), health editor TARYN MICHAUD ([id number]) on 04/29/2021 11:47:08 AM Referred By: BORIS Confirmed By:LYN JIMENEZ MD
[2021-04-28 19:31] LABS: Troponin-I HS 6 pg/mL (3.0-54.0)
[2021-04-28 19:49] VITALS: BP 154/95; PULSE 59; RESP 14; O2SAT 96
== END 2021-04-28 20:10 | disposition home or self-care (01) ==
PROVIDERS: Emergency Provider Emergency Medicine; Visit Provider Emergency Medicine
DX: R10.9 Unspecified abdominal pain (principal); R11.0 Nausea; Z90.49 Acquired absence of other specified parts of digestive tract; Z87.19 Personal history of other diseases of the digestive system; H66.90 Otitis media, unspecified, unspecified ear; M54.9 Dorsalgia, unspecified
CPT/HCPCS: 74177; 80053; 81001; 83605; 83690; 84484; 85025; 93005; 96361; 96374; 99284; J7030; Q9967; J2405

== ENCOUNTER 2022-09-04 07:58 | Emergency (ER) | payer BC, SELFPAY ==
[2022-09-04 07:58] VITALS: BP 152/82; PULSE 100; RESP 16; TEMP 36.3; O2SAT 98; BMI 34.1
--- NOTE | 2022-09-04 08:18 | CT_ITS ---
STUDY: CT ABDOMEN AND PELVIS WITH CONTRAST - URINARY TRACT REASON FOR EXAM: Female, 61 years old. Left lower quadrant abdominal pain RADIATION DOSAGE (If Supplied By Facility): CTDIvol = ( 13.19 ) mGy, DLP = ( 939.98 ) mGycm TECHNIQUE: IV 100mL Isovue-300 was administered. Transaxial images were obtained from the dome of the diaphragm to the symphysis pubis in the arterial, nephrographic and excretory phases. Multiplanar coronal and sagittal images were reformatted. Individualized Dose Optimization Techniques Were Used For This CT. COMPARISON: October 09, 2020 and April 28, 2021 FINDINGS: The visualized lung bases are unremarkable. The visualized portions of the heart are within normal limits. There are stable scattered too small to characterize low-attenuation foci within the liver which may reflect cysts or hemangiomas. There is non-visualization of the gallbladder, which may be secondary to either contraction or a prior cholecystectomy. Normal spleen. Normal pancreas. Normal bilateral adrenal glands. There is a small hiatal hernia. Normal small intestine. There is diverticulosis, with thickening of the sigmoid colon wall, and pericolonic inflammation changes consistent with acute diverticulitis. There is intramural fat within the ascending and proximal transverse colon suggestive of prior inflammation. There is non-visualization of the appendix. Normal abdominal aorta. No retroperitoneal adenopathy. There is a nonobstructing 3 mm right renal calculus. Normal left kidney. Normal urinary bladder. Normal abdominal wall. Normal osseous structures. CT/Abdomen/Pelvis W IV Cont ONLY IMPRESSION: Acute diverticulitis of the sigmoid colon; recommend colonoscopy subsequent to treatment for cannot exclude an occult mass. Nonobstructing 3 mm right renal calculus. Hiatal hernia. Electronically Signed: Catrachita Nails MD at 9:38 EDT ,
--- NOTE | 2022-09-04 08:21 | EDS_ITS ---
HPI HPI - GI History of Present Illness Chief Complaint: Abd Pain Narrative Narrative: 61-year-old female with history of diverticulitis presenting with left lower quadrant pain. She states she has had some mucus and small mount of blood in her stool over the last few days since Tuesday. She also has a history of C. difficile colitis but has not been on any recent antibiotics. She states that the last time she had diverticulitis a couple of years ago it was more severe however she waited a week before she presented to the ER. After getting antibiotics at that time she had C. difficile colitis. She followed with Dr. Avila. Patient has not had a fever but states has been feeling rundown and nauseous. She is left lower quadrant pain and occasionally her right lower quadrant pain. She has not been on any recent antibiotics. Surgical history in cludes hysterectomy, appendectomy, cholecystectomy. PFSH PFSH Medical History C. difficile colitis Diverticulitis Home Medications amoxicillin 875 mg-potassium clavulanate 125 mg tablet 1 tab PO BID #20 tabs 09/04/22 [Rx Last Taken Unknown] hydrocodone-acetaminophen 5-325mg 5mg-325mg 1 tab PO Q6H PRN PRN Pain 3 days #12 TABLETS 09/04/22 [Rx Last Taken Unknown] ondansetron 4 mg disintegrating tablet 4 mg PO Q8H PRN PRN Nausea #14 tabs 09/04/22 [Rx Last Taken Unknown] Allergy/AdvReac Type Severity Reaction Status Date / Time midazolam [From Versed] Allergy WENT Verified 09/04/22 08:00 COMPLETELY NUMB acetaminophen [From Percocet] AdvReac Nausea Verified 09/04/22 08:00 butorphanol tartrate AdvReac Abd Verified 09/04/22 08:00 [From Stadol] cramps/diarrhea codeine AdvReac Abd Verified 09/04/22 08:00 cramps/diarrhea oxycodone [From Percocet] AdvReac Nausea Verified 09/04/22 08:00 propoxyphene AdvReac Nausea Verified 09/04/22 08:00 [From Darvocet-N] Surgical History History of appendectomy History of cholecystectomy History of hysterectomy Social History household members: spouse Smoking Status: Never smoker alcohol intake: never ROS ROS ED Constitutional Constitutional ED: Denies chills, fever(s) or sweats Eyes Eyes: Denies blurry vision or change in vision ENT ENT ED: Denies ear pain or sore throat Cardiovascular Cardiovascular: Denies chest pain, palpitations or racing heartbeat Respiratory/Chest Respiratory/Chest: Denies cough, dyspnea or sputum Gastrointestinal Gastrointestinal: Reports abdominal pain, diarrhea, nausea and other Details: Mucus with blood tingeing in stool ; Denies constipation or vomiting Genitourinary Genitourinary ED: Denies dysuria, hematuria or urinary frequency Musculoskeletal Musculoskeletal: Denies arthralgias, myalgias or neck pain Integumentary Denies abscess, Abrasions or rash Neurologic Neurologic: Denies headache(s), paresthesias or weakness Psychiatric Psychiatric: Denies anxiety, depression, suicidal ideation or suicidal thoughts Endocrine Endocrinology: Denies polydipsia or polyuria EXAM Physical Exam Const Vital Signs: 09/04/22 07:58 09/04/22 10:19 Temperature 97.4 F L Temperature Source Temporal Pulse Rate 100 90 Respiratory Rate 16 18 Blood Pressure 152/82 H 138/70 H Blood Pressure Mean 105 Pulse Ox 98 98 Oxygen Delivery Method Room Air Positive well nourished General Appearance ED: Negative for pallor HEENT Reports normocephalic and moist mucous membranes Eyes PERRL and EOMs intact bilaterally Resp normal respiratory effort and clear to auscultation bilaterally Effort and Inspection: Negative for respiratory distress Cardio regular rate and regular rhythm GI non-distended Auscultation: normoactive bowel sounds Palpation: soft and tender LLQ Narrative: Deferred Back/Spine no CVA tenderness General Back: CVA tenderness Extremity normal to inspection General Extremety ED: Yes edema and tenderness General Extremity: edema Neuro oriented x3 and CN's II-XII intact bilaterally Sensorium / Orientation: alert Motor Exam: strength 5/5 throughout Psych mental status grossly normal Attitude: No agitated Skin no rashes or lesions noted and no wounds General Skin Exam: Negative for jaundice or pallor MDM MDM MDM Narrative Medical decision making narrative: 61-year-old female with history of diverticulitis, C. difficile colitis with previous surgical history including appendectomy, cholecystectomy, hysterectomy. Differential includes but is not limited to colitis, diverticulitis, C. difficile, small bowel obstruction, constipation, urinary tract infection, pyelonephritis. CBC to assess white blood cell count, hemoglobin, platelets, differential. CMP to assess liver function, renal function, glucose, anion gap, electrolytes. Urinalysis to assess for UTI. Patient medicated with morphine 4 mg and Zofran 4 mg. She is given a liter normal saline. CT of the abdomen pelvis with IV contrast will be obtained. CBC shows a slight leukocytosis at 13.3. Hemoglobin hematocrit are stable. Platelets are normal. Renal function electrolytes within normal limits. Liver function test normal. Urinalysis negative for infection. CT of the abdomen pelvis with IV contrast shows acute noncomplicated diverticulitis. Patient counseled on finding. She is amenable to trying antibiotics at home. She is to get started on Augmentin. She is given [place] and Zofran. Return precautions were discussed at length. Recommended she do probiotics as well due to her history of C. difficile colitis. Impression: 1. Nausea 2. Acute sigmoid diverticulitis Lab Data Attestation: I reviewed the patient's lab results. Labs: Laboratory Results - last 24 hr 09/04/22 09/04/22 09/04/22 08:15 08:15 09:00 WBC 13.3 H RBC 5.06 Hgb 15.6 H Hct 46.0 MCV 90.9 MCH 30.8 MCHC 33.9 RDW Std Deviation 41.6 RDW Coeff of Angel 12.5 Plt Count 218 MPV 10.7 Immature Gran % (Auto) 0.500 Neut % (Auto) 72.6 H Lymph % (Auto) 16.4 L [place] % (Auto) 7.8 Eos % (Auto) 2.3 Baso % (Auto) 0.4 Absolute Neuts (auto) 9.7 H Absolute Lymphs (auto) 2.18 Nucleated RBC % 0 Sodium 139 Potassium 3.4 L Chloride 107 Carbon Dioxide 24.0 Anion Gap 8 BUN 12 Creatinine 0.80 Estim Creat Clear Calc 53.72 Est GFR (MDRD) Af Amer 94 Est GFR (MDRD) Non-Af 77 BUN/Creatinine Ratio 15.0 Glucose 105 Calcium 8.9 Total Bilirubin 0.90 AST 23 ALT 30 Alkaline Phosphatase 95 Total Protein 8.0 Albumin 3.6 Globulin 4.4 H Albumin/Globulin Ratio 0.8 L Urine Color Yellow Urine Clarity Clear Urine pH 6.0 Ur Specific [place] 1.015 Urine Protein 15 H Urine Glucose (UA) Normal Urine Ketones 50 H Urine Occult Blood 150 H Urine Nitrite Negative Urine Bilirubin Negative Urine Urobilinogen 1 H Ur Leukocyte Esterase Negative Urine RBC 0-5 SEEN Urine WBC 0-5 SEEN Ur Squamous Epith Cells 0-5 SEEN Urine Bacteria 0 SEEN Urine Mucus 0 SEEN Radiography Diagnostic Testing: Clinical Impression(s) from Imaging Studies Abdomen/Pelvis CT 09/04/22 08:18 IMPRESSION: Acute diverticulitis of the sigmoid colon; recommend colonoscopy subsequent to treatment for cannot exclude an occult mass. Nonobstructing 3 mm right renal calculus. Hiatal hernia. Electronically Signed: Catrachita Nails MD at 9:38 EDT , Discharge Plan Triage Chief Complaint: Abd Pain ED Provider: Frank Brantley Dx/Rx/DC Orders Clinical Impression: Diverticulitis Instructions: ED Diverticulitis Prescriptions: New amoxicillin-pot clavulanate 875-125 mg tablet 1 tab PO BID Qty: 20 0RF hydrocodone-acetaminophen 5-325 mg tablet 1 tab PO Q6H PRN PRN (Reason: Pain) 3 Days Qty: 12 0RF ondansetron 4 mg tablet,disintegrating 4 mg PO Q8H PRN PRN (Reason: Nausea) Qty: 14 0RF Primary Care Provider: Zaid Cantu Referrals: Zaid Cantu [[facility]] - Disposition Disposition: Home, Self Care Discharge Date/Time: 09/04/22 10:21
[2022-09-04] MEDS: 0.9% Normal Saline 1,000 ML 1000 ML IV (08:24)
[2022-09-04] MEDS: Ondansetron 4 MG/2 ML Vial IV (08:24)
[2022-09-04] MEDS: Morphine 4 MG/ML Syringe IV (08:24)
[2022-09-04 08:36] LABS: Absolute Lymphocyte Count 2.18 X10^3/uL (0.83-4.51); Absolute Neutrophil Count 9.7 X10^3/uL (2.0-7.7); Basophil# 0.05 X10^3/uL; Basophil% 0.4 % (0-1); Eosinophil# 0.31 X10^3/uL; Eosinophils% 2.3 % (0-5); Hemoglobin 15.6 g/dL (12.0-15.0); Lymphocyte # 2.18 X10^3/ul (0.83-4.51); Lymphocyte % 16.4 % (19-41); Mean Corp Hgb Conc 33.9 g/dL (32-36); Mean Corpuscular Hgb 30.8 pg (27.0-32.0); Mean Corpuscular Volume 90.9 fL (81-99); Mean Platelet Vol. 10.7 fl (6.2-12.0); Monocyte# 1.03 X10^3/uL; Monocyte% 7.8 % (0-10); NRBC Flagged by Analyzer 0 % (0-5); Neutrophil # 9.65 X10^3/uL (2.7-7.7); Neutrophil % 72.6 % (47-70); Platelet Count 218 K/mm3 (150-450); RBC Distribution Width CV 12.5 % (11.6-14.6); RBC Distribution Width SD 41.6 fl (35.1-43.9); Red Blood Count 5.06 M/mm3 (4.2-5.4); White Blood Count 13.3 K/mm3 (4.4-11.0)
[2022-09-04 08:47] LABS: ALB/GLOB Ratio 0.8 RATIO (0.9-2.4); AST(SGOT) 23 U/L (15-37); Alanine Aminotransfer ALT/SGPT 30 U/L (13-56); Albumin, Serum 3.6 g/dL (3.2-5.0); Alkaline Phosphatase 95 U/L (45-117); Anion Gap 8 (5-15); BUN 12 mg/dL (7-18); Calcium,Total 8.9 mg/dL (8.5-10.1); Chloride 107 mmol/L (98-107); EST Glomerular Filtration Rate 77 mL/min (>60); Est Glom Filt Rate - Afr Amer 94 mL/min (>60); Estimated Creatinine Clearance 53.72 ml/min; Globulin 4.4 g/dL (2.2-4.2); Glucose 105 mg/dL (74-106); Potassium 3.4 mmol/L (3.5-5.1); Sodium Level 139 mmol/L (136-145)
[2022-09-04 09:12] LABS: Bacteria 0 SEEN /hpf (None Seen); Mucous, Urine 0 SEEN /hpf (<or=2+)
[2022-09-04 09:25] LABS: Color, Urine Yellow (Yellow); Glucose, Dipstick Normal (Normal); Ketone-Dipstick 50 mg/dl (Negative); Leukocyte Esterase-Dipstick Negative /ul (Negative); Nitrite-Dipstick Negative (Negative); Occult Blood-Urine 150 /ul (Negative); Protein-Dipstick 15 mg/dl (Negative); Specific Gravity, Urine 1.015 (1.002-1.030); Urine Bilirubin Dipstick Negative (Negative); Urine Clarity Clear (Clear); Urine Urobilinogen 1 mg/dl (Normal)
[2022-09-04 09:34] LABS: Red Blood Cells-Urine 0-5 SEEN /hpf (0-5); Squamous Epithelial Cells - UA 0-5 SEEN /hpf (5-10); White Blood Cells 0-5 SEEN /hpf (0-5)
[2022-09-04] MEDS: Amox/Clavulanate 875 MG Tablet PO (10:12)
[2022-09-04 10:19] VITALS: BP 138/70; PULSE 90; RESP 18; O2SAT 98
== END 2022-09-04 10:21 | disposition home or self-care (01) ==
PROVIDERS: Emergency Provider Student in an Organized Health Care Education/Training Program; PCP Family Medicine; Visit Provider Student in an Organized Health Care Education/Training Program
DX: K57.32 Diverticulitis of large intestine without perforation or abscess without bleeding (principal); R11.0 Nausea; Z90.710 Acquired absence of both cervix and uterus; Z90.49 Acquired absence of other specified parts of digestive tract
CPT/HCPCS: 74177; 80053; 81001; 85025; 96361; 96374; 96375; 99283; J7030; Q9967; A4216; J2405

== ENCOUNTER → 2025-02-28 | Outpatient (CLI) | payer BC, SELFPAY ==
[2025-02-28 15:53] LABS: Hematocrit 41.1 % (37-47); Hemoglobin 13.9 g/dL (12.0-15.0); Mean Corp Hgb Conc 33.8 g/dL (32-36); Mean Corpuscular Volume 90.3 fL (81-99); Mean Platelet Vol. 11.3 fl (6.2-12.0); Platelet Count 215 K/mm3 (150-450); RBC Distribution Width CV 13.1 % (11.6-14.6); RBC Distribution Width SD 43.2 fl (35.1-43.9); Red Blood Count 4.55 M/mm3 (4.2-5.4); White Blood Count 5.6 K/mm3 (4.4-11.0)
[2025-02-28 16:14] LABS: Albumin, Serum 4.0 g/dL (3.4-4.8); BUN 18 mg/dL (4-19); BUN/Creat Ratio 22.7 RATIO (10-20); Glucose 88 mg/dL (70-99)
[2025-02-28 16:15] LABS: AST(SGOT) 29 U/L (<=31); Alanine Aminotransfer ALT/SGPT 27 U/L (<=34); Alkaline Phosphatase 77 U/L (35-104); Anion Gap 11 (5-15); Calcium,Total 8.8 mg/dL (7.6-11.0); Carbon Dioxide 22.7 mmol/L (21.0-32.0); Chloride 107 mmol/L (98-108); Cholesterol 281 mg/dL (<=200); Globulin 3.1 g/dL (2.2-4.2); Low Density Lipoprotein Calc. 203 mg/dL; Potassium 3.6 mmol/L (3.3-5.1); Triglycerides 95 mg/dL; Very Low Density Lipoprotein 19 mg/dL (5-40); Vitamin B12 473 pg/mL (180-914); cholesterol:hdl ratio screen 4.55
[2025-02-28 16:17] LABS: CRP < 3.00 mg/L (0.0-3.0)
[2025-03-05 08:09] LABS: ANTINUCLEAR ANTIBODIES DIRECT Negative (Negative)
[2025-03-07 13:08] LABS: Anti-Cardiolipin Ab, IgA, Qn < 9 APL U/mL (0-11); Anti-Cardiolipin Ab, IgG, Qn < 9 GPL U/mL (0-14); Anti-Cardiolipin Ab, IgM, Qn 11 MPL U/mL (0-12); Anti-Thrombin 3 AG, Immunol 109 % (72-124); Antithrombin 3 Function 115 % (75-135); Complement CH50 53 U/mL (>41); Dilute Russell Viper Venom 39.9 sec (0.0-47.0); Folate, Hemolysate Test 327.0 ng/mL (Not Estab.); Folate, RBC (Hct) Test 44.4 % (34.0-46.6); Folates, RBC Test 736 ng/mL (>498); Interpretation Comment: (.); PTT-LA 32.9 sec (0.0-43.5); Protein C, Functional 170 % (73-180); Protein S, Funtional 72 % (63-140); VITAMIN B6 7.0 ug/L (3.4-65.2); Vitamin B1, Thiamine 105.9 nmol/L (66.5-200.0)
== END | disposition home or self-care (01) ==
LOC: LAB 14:28
PROVIDERS: PCP Family Medicine; Referring Provider Psychiatry & Neurology Neurology; Visit Provider Psychiatry & Neurology Neurology
DX: I67.9 Cerebrovascular disease, unspecified (principal); E78.5 Hyperlipidemia, unspecified; R41.3 Other amnesia; R53.83 Other fatigue
CPT/HCPCS: 36415; 80053; 80061; 81240; 81241; 82607; 82747; 84207; 84425; 84443; 85014; 85027; 85300; 85301; 85302; 85303; 85305; 85306; 85652; 86038; 86140; 86147; 86160; 86162; 86225

== ENCOUNTER → 2025-03-19 | Outpatient (CLI) | payer BC, SELFPAY | END | disposition home or self-care (01) | LOC: SL 10:35 | PROVIDERS: PCP Family Medicine; Referring Provider Psychiatry & Neurology Neurology; Visit Provider Psychiatry & Neurology Neurology | DX: G47.10 Hypersomnia, unspecified (principal) | CPT/HCPCS: 95806 ==

== ENCOUNTER 2025-03-22 12:57 | Outpatient (CLI) | payer BC, SELFPAY ==
[2025-03-22 13:35] VITALS: BP 157/84; PULSE 99; RESP 18; O2SAT 98; BMI 31.6
--- NOTE | 2025-03-22 13:40 | RAD_ITS ---
PROCEDURE: DX LUMBAR PUNCTURE W/IMG GUIDE 03/22/2025 REASON FOR EXAM: G35.A - RELAPSING-REMITTING MULTIPLE SCLEROSIS The procedure as well as the benefits and possible complications including infection, bleeding and headaches were explained to the patient. Informed consent was obtained. TECHNIQUE: Procedure Code: [id number] Modality: DX Procedure: DX LUMBAR PUNCTURE W/IMG GUIDE. The patient was in the prone position. The overlying skin was prepped and draped in the usual sterile fashion. Following local anesthetic application, a lumbar puncture was performed at the L2-L3 level. Free flow of CSF was noted. 12 cc of clear CSF was removed. The specimen was sent to the laboratory for analysis. Fluoroscopy: 31 seconds. Radiation dose: 8.2 mGy. COMPARISON: None FINDINGS: Successful fluoroscopic guided lumbar puncture. RAD/Dx Lumbar Puncture w/IMG Guide IMPRESSION: Successful fluoroscopic guided lumbar puncture with removal of 12 cc of clear C SF. The patient tolerated the procedure well. No immediate complication noted. Reading Location: [facility]-
[2025-03-22] MEDS: Lidocaine 2% (5ml sdv) 5 ML VIAL.MPF INFILT (13:55)
[2025-03-22 14:05] VITALS: BP 156/86; PULSE 84; RESP 18; O2SAT 98
--- NOTE | 2025-03-22 14:09 | CYSPIN_PTH ---
PATIENT: BRETT MCINTYRE LOC: [facility] U#:[id number] AGE/SX: 64/F ROOM: RE03/22/[address]: Dr. Cory Pedersen MD : [id number] BED: DIS: 03/22/2025 SPEC #: [id number] RECD: 03/25/25 07:55 STATUS: MARIMAR REGera #: [id number] KIA: 03/22/25 14:[address]: Cory Pedersen DEPT: CYTOLOGY RECD BY: Lynn Jessica ENTERED: 03/25/25 07:56 SP TYPE: CYSPIN FL OTHR DR: Dr. Zaid Cantu MD Tissues: Cerebrospinal Fluid Procedures: Pap Stain (control) Special Stain Group II Cytospin Fluid HEADER OPERATION: Not noted PRE-OP DIAGNOSIS: Relapsing-remitting multiple sclerosis TISSUE SUBMITTED: A- Cerebrospinal fluid for cytology DIAGNOSIS CYTOLOGY A. Cerebrospinal fluid (cytospin): - No malignant cells identified. - Essentially acellular specimen with only rare white blood cells and rare red blood cells observed. CYTOLOGY STUDY Slides are reviewed. CYTOLOGY GROSS A. Received is 3 ml of clear-colorless fluid labeled with the patient's name and and designated per the requisition as Cerebrospinal fluid. Submitted for cytology preparation. 03/25/2025 CPT: 34822
[2025-03-22 14:10] LABS: Cytology, Body Fluid / CSF SEE PATHOLOGY REPORT
[2025-03-22 14:30] VITALS: BP 152/84; PULSE 76; RESP 18; O2SAT 97
[2025-03-22 15:16] LABS: Glucose Spinal Fluid 58 mg/dL (40-75); Protein Spinal Fluid 30.0 mg/dL (15.0-45.0)
[2025-03-22 16:53] LABS: Auto B Fluid Analyzer BKGD Ct COUNTS W/IN LIMITS (W/IN LIMITS)
[2025-03-22 16:54] LABS: Appearance CSF (character) CLEAR (Clear); CSF Color COLORLESS (Colorless); RBC Count, Spinal Fluid 2 /mm-3 (None seen); Tested Tube # 4
[2025-03-22 16:55] LABS: Body Fluid QC Type(s) BF5Q
[2025-03-22 16:56] LABS: White Count, CSF 4 /mm-3 (0 - 5)
[2025-03-27 11:38] LABS: Neutrophils,CSF 1 % (0 - 6)
[2025-03-28 02:07] LABS: CSF:Serum Albumin Index 4 (0-8); IgG Synthesis Rate, CSF -1.7 mg/day (-9.9 TO +3.3); IgG/Alb Ratio, CSF 0.15 (0.00-0.25); Myelin Basic Protein, MBP 4.0 ng/mL (0.0-4.7)
== END 2025-03-22 23:59 | disposition home or self-care (01) ==
LOC: RAD 12:59
PROVIDERS: PCP Family Medicine; Referring Provider Psychiatry & Neurology Neurology; Visit Provider Psychiatry & Neurology Neurology
DX: G35.A Relapsing-remitting multiple sclerosis (principal)
CPT/HCPCS: 62328; 82040; 82042; 82784; 82945; 83873; 83916; 84157; 87070; 87205; 88108; 88313; 89050; 89051